=== PATIENT | female | born 1975 | race Caucasian/White ===

== ENCOUNTER → 2017-10-25 07:12 | Outpatient (CLI) | payer OTHER, SELFPAY ==
--- NOTE | 2017-10-25 07:23 | MRI_ITS ---
STUDY: MRI LUMBAR SPINE WITHOUT CONTRAST REASON FOR EXAM: Female, 42 years old. radiculopathy, chronic lbp, leg weakness, balance issues. TECHNIQUE: Standardized fat and water weighted pulse sequences were obtained in the sagittal and axial planes. COMPARISON: None FINDINGS: T12-L1: Normal endplates. Normal disc height, hydration and morphology. Normal bilateral facet joints. Normal central canal and bilateral lateral recesses. Normal bilateral intervertebral neural foramina. Normal lumbar lordosis. There is no substantial scoliosis. Normal conus medullaris that terminates at the L1 L1-2: Normal endplates. Normal disc height, hydration and morphology. Normal bilateral facet joints. Normal central canal and bilateral lateral recesses. Normal bilateral intervertebral neural foramina. L2-3: Normal endplates. Normal disc height, hydration and morphology. Normal bilateral facet joints. Normal central canal and bilateral lateral recesses. Normal bilateral intervertebral neural foramina. L3-4: Normal endplates. Normal disc height, hydration and morphology. Normal bilateral facet joints. Normal central canal and bilateral lateral recesses. Normal bilateral intervertebral neural foramina. L4-5: There is minimal disc space narrowing and endplate spondylosis. There is moderate facet arthropathy with grade 1 anterolisthesis and mild disc uncovering. There is mild central canal and mild bilateral foraminal stenosis. L5-S1: Normal endplates. Normal disc height, hydration and morphology. Normal central canal and bilateral lateral recesses. Normal bilateral intervertebral neural foramina. There is minimal bilateral facet arthropathy Normal visualized sacral ala. Normal visualized paraspinous soft tissue structures. MRI/Spine Lumbar (Routine) IMPRESSION: L4/L5: Grade 1 degenerative anterolisthesis. Electronically Signed: Choco Mcqueen MD at 15:40 EDT Tel , Service support ,
== END ==
PROVIDERS: Visit Provider Psychiatry & Neurology Neurology
DX: M54.16 Radiculopathy, lumbar region (principal)
CPT/HCPCS: 72148

== ENCOUNTER → 2018-01-31 07:49 | Outpatient (CLI) | payer OTHER, SELFPAY ==
--- NOTE | 2018-01-31 10:48 | NEURO ---
NCS and/or EMG Patient Report Ordering Doctor: Nery Borges DATE OF SERVICE: 01/31/18 This is a bilateral lower extremity nerve conduction study and a left lower extremity EMG performed on this 42-year-old female with a family history of hereditary spastic paraparesis, who also has a history of back pain and on MRI reportedly has spondylolisthesis. There is no history of diabetes. exam shows severe bilateral lower extremity spasticity with upgoing toes. Bilateral lower extremity sensory and motor nerve conduction studies are performed. The sural sensory responses are normal. The common peroneal motor distal latencies amplitudes and conduction velocities are intact and the tibial motor distal latencies amplitudes and conduction velocities are intact. The common peroneal and tibial F-wave latencies are preserved, the left tibial H reflex is mildly reduced compared to the right tibial H reflex. Left lower extremity needle electromyography was performed. Muscles evaluated included the extensor digitorum brevis, abductor halitosis, medial gastrocnemius, anterior tibialis, vastus lateralis and vastus medialis muscles. Small muscles of the foot did demonstrate fasciculations however more proximal muscles demonstrated normal insertional activity with absence of pathologic spontaneous activity, motor unit potential amplitude and recruitment pattern was otherwise normal. 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
== END ==
PROVIDERS: Referring Provider Psychiatry & Neurology Neurology; Visit Provider Psychiatry & Neurology Neurology
DX: R20.0 Anesthesia of skin (principal); G62.9 Polyneuropathy, unspecified
CPT/HCPCS: 95886; 95910

== ENCOUNTER 2023-12-15 12:32 | Observation (INO) | payer MEDICAID, SELFPAY ==
--- NOTE | 2023-11-22 11:03 | EKG12_ITS ---
Test Reason : PREOP Blood Pressure : / mmHG Vent. Rate : 081 BPM Atrial Rate : 081 BPM P-R Int : 172 ms QRS Dur : 078 ms QT Int : 360 ms P-R-T Axes : 067 082 050 degrees QTc Int : 418 ms Normal sinus rhythm Nonspecific T wave abnormality Abnormal ECG Confirmed by Kaushal Darnell ([id number]), order editor HARI REYNOSO ([id number]) on 11/23/2023 10:04:45 AM Referred By: Natanael Singh Confirmed By:Kaushal Darnell
--- NOTE | 2023-11-22 11:30 | RAD_ITS ---
EXAM: XR CHEST, 2 VIEWS CLINICAL INDICATION: PREOP TECHNIQUE: Frontal and lateral views of the chest. COMPARISON: No relevant prior studies available. FINDINGS: LUNGS AND PLEURAL SPACES: No significant abnormality. No consolidation or edema. No pneumothorax. No effusion. HEART: No significant abnormality. Cardiac silhouette not enlarged. MEDIASTINUM: Central airways and mediastinal contour are unremarkable. BONES/JOINTS: No significant abnormality. No acute fracture. SOFT TISSUES: No significant abnormality. Status post cholecystectomy. RAD/Chest PA and Lateral IMPRESSION: No radiographic evidence of acute cardiopulmonary disease. Electronically Signed: Luisito Ruelas DO at 20:38 EDT ,
[2023-11-22 12:26] LABS: Absolute Lymphocyte Count 1.81 X10^3/uL (0.83-4.51); Absolute Neutrophil Count 3.4 X10^3/uL (2.0-7.7); Basophil# 0.07 X10^3/uL; Basophil% 1.2 % (0-1); Eosinophil# 0.07 X10^3/uL; Eosinophils% 1.2 % (0-5); Hematocrit 41.7 % (37-47); Hemoglobin 13.8 g/dL (12.0-15.0); Lymphocyte # 1.81 X10^3/ul (0.83-4.51); Lymphocyte % 31.3 % (19-41); Mean Corp Hgb Conc 33.1 g/dL (32-36); Mean Corpuscular Hgb 29.1 pg (27.0-32.0); Mean Platelet Vol. 10.8 fl (6.2-12.0); Monocyte# 0.43 X10^3/uL; Monocyte% 7.4 % (0-10); NRBC Flagged by Analyzer 0 % (0-5); Neutrophil # 3.38 X10^3/uL (2.7-7.7); Neutrophil % 58.6 % (47-70); Platelet Count 217 K/mm3 (150-450); RBC Distribution Width CV 12.2 % (11.6-14.6); RBC Distribution Width SD 39.5 fl (35.1-43.9); Red Blood Count 4.74 M/mm3 (4.2-5.4); White Blood Count 5.8 K/mm3 (4.4-11.0)
[2023-11-22 12:29] LABS: International Normalized Ratio 1.1; Prothrombin Time (Protime)PT. 13.9 SECONDS (11.7-14.9)
[2023-11-22 12:30] LABS: Partial Thromboplast Time 30.8 Seconds (24.1-36.2)
[2023-11-22 12:33] LABS: Magnesium 2.3 mg/dL (1.6-2.6)
[2023-11-22 12:52] LABS: Anion Gap 7 (5-15); BUN 10 mg/dL (7-18); BUN/Creat Ratio 13.3 RATIO (10-20); Calcium,Total 9.7 mg/dL (8.5-10.1); Chloride 108 mmol/L (98-107); Creatinine, Serum 0.75 mg/dL (0.55-1.02); EST Glomerular Filtration Rate 87 mL/min (>60); Est Glom Filt Rate - Afr Amer 106 mL/min (>60); Glucose 94 mg/dL (74-106); Potassium 3.5 mmol/L (3.5-5.1); Sodium Level 142 mmol/L (136-145)
[2023-12-15] VITALS (19 sets, daily range): BP systolic 102–127; BP diastolic 60–108; PULSE 66–98; RESP 14–16; TEMP 35.9–36.6; O2SAT 98–100; BMI 23.3
[2023-12-15] MEDS: Lactated Ringers 1,000 ML 999 ML IV (10:51)
[2023-12-15] MEDS: Lactated Ringers 1,000 ML 75 ML IV (10:51)
[2023-12-15] MEDS: Magnesium 1 GM over 15 mins IV (10:52)
[2023-12-15] MEDS: Acetaminophen 500 MG Tablet 1000 MG PO ×2 (10:52→20:59)
[2023-12-15 11:21] LABS: Bedside Glucose 81 mg/dL (74-106)
--- NOTE | 2023-12-15 11:24 | PRE.ANES_ITS ---
ASA Classification* ASA Classification ASA Classification: 2 Assessment & Plan Anesthesia* Anesthesia Assessment Anesthesia Assessment: Discussed sedation and/or anesthesia options, risks, benefits, and alternatives with patient/parents/legal guardian/POA. Questions invited. The patient/parents/legal guardian/POA seems to understand and agrees to proceed with anesthesia plan. Reviewed the physical assessment, medical history, allergy history and patient home medications list prior to surgery/procedure/anesthetic and documented any changes. Performed airway and anesthesia risk assessments. Anesthesia Type Anesthesia Type: General History Source History Obtained from:: Patient and Chart Anesthesia Focused Assessment* Temperature: 97.4 F Pulse Rate: 80 Blood Pressure: 123/90 Respiratory Rate: 16 Pulse Ox: 100 Oxygen Delivery Method: Room Air Airway Assessment Mouth opens: >3 cm Mallampati Score: III Teeth Condition: Intact Neck Range of motion (ROM): Full ROM Pertinent Findings EKG Pertinent Findings:: November 22, 2023. Normal sinus rhythm 81 bpm. Nonspecific T changes. Focused Labs Anesthesia Preop lab: CBC WBC 5.8 K/mm3 (4.4-11.0) 11/22/23 11:32 RBC 4.74 M/mm3 (4.2-5.4) 11/22/23 11:32 Hgb 13.8 g/dL (12.0-15.0) 11/22/23 11:32 Hct 41.7 % (37-47) 11/22/23 11:32 Plt Count 217 K/mm3 (150-450) 11/22/23 11:32 CHEMISTRY Potassium 3.5 mmol/L (3.5-5.1) 11/22/23 11:32 Sodium 142 mmol/L (136-145) 11/22/23 11:32 Magnesium 2.3 mg/dL (1.6-2.6) 11/22/23 11:32 BUN 10 mg/dL (7-18) 11/22/23 11:32 Creatinine 0.75 mg/dL (0.55-1.02) 11/22/23 11:32 Glucose 94 mg/dL (74-106) 11/22/23 11:32 POC Glucose 81 mg/dL (74-106) 12/15/23 10:54 COAG PT 13.9 SECONDS (11.7-14.9) 11/22/23 11:32 Pre-Assessment Diagnosis/Proposed Procedure Planned Operative Procedure(s): L4-L5 POSTERIOR LUMBAR FUSION AND DECOMPRESSION POSTERIOR SPINAL FUSION WITH ALLOGRAFT Anesthesia History Anesthesia History - research/program director: Anesthesia History - research/program director Hx Hospitalization No 11/21/23 08:22 Any Problems With Anesthesia No 11/21/23 08:22 Cholinesterase deficiency No 11/21/23 08:22 You/Your Family Experience No 11/21/23 08:22 fever (hyperthermia) with Relationship Recent Exposure to Contagious Disease Does patient have nerve No 11/21/23 08:22 stimulator Patient instructed to have device shut off --Does patient have Pacemaker No 12/15/23 10:29 or ICD? When Was Last Pacemaker Check QUESTION #4 FULL TEXT: You/Your Family Experience fever (hyperthermia) with Anesthesia Last Oral Intake Last Oral intake: Last Oral Intake NPO since 08:00 12/15/23 10:29 Meds taken in AM with sips of Yes 12/15/23 10:29 water? Meds patient instructed to baclofen 12/15/23 10:29 take am of surgery Any additional information?: Yes NPO since: 08:00 (Patient had Ensure.) Meds taken in AM with sips of water?: Yes PONV PONV - research/program director: PONV - research/program director Female Yes 11/21/23 08:22 HX of Motion Sickness No 11/21/23 08:22 HX of N/V After Surgery No 11/21/23 08:22 Non-Smoker No 11/21/23 08:22 Duration of Surgery greater Yes 11/21/23 08:22 than 60 minutes Number of Risk Factors 2 11/21/23 08:22 PONV Score Moderate Risk 11/21/23 08:22 Height & Weight Height & Weight: Anesthesia: Height & Weight Height 5 ft 1 in 12/15/23 10:29 Weight: 56 kg 12/15/23 10:29 Body Mass Index (BMI) 23.3 12/15/23 10:29 Respiratory Assessment Respiratory Assessment - research/program director: Respiratory Tract Infection Hx - research/program director Hx Respiratory Tract Infection No 11/21/23 08:22 STOP Sleep Apnea STOP Sleep Apnea - research/program director: STOP Sleep Apnea - research/program director Hx Hypertension Yes: LAST MEDICATED 11/202211/21/23 08:22 Hx Sleep Apnea No 11/21/23 08:22 CPAP BIPAP Do you snore loudly (louder No 11/21/23 08:22 than talking or can be heard Do you often feel tired/ No 11/21/23 08:22 fatigued/ sleepy during daytime? Has anyone observed you stop No 11/21/23 08:22 breathing during sleep? STOP Results Negative 11/21/23 08:22 QUESTION #5 FULL TEXT : Do you snore loudly (louder than talking or can be h eard through closed doors)? Tobacco Use History Tobacco Use History - research/program director: Tobacco Use History - research/program director Tobacco Use Smoking Status Current every day smoker 11/21/23 08:22 Hx Tobacco Use Yes 11/21/23 08:22 Years Smoking Packs Smoked per Day Smoking Cessation Date was within the last 15 years Hx Smoking Cessation Date Hx Smoking Cessation Counseling Any additional information?: Yes Smoking Status: Current every day smoker (Patient did not smoke today.) Hematologic Medial History Hematologic Hx - research/program director: Hematologic Medical Hx - locate technician Hx of Blood Transfusion No 11/21/23 08:22 Hx of Transfusion in last 3 No 11/21/23 08:22 Months Date of Last Transfusion (if within last 3 months) Ever experience any problems No 11/21/23 08:22 with transfusion(s)? Specify any problems Hx of Preganancy in last 3 No 11/21/23 08:22 Months Nurse Filling Out Transfusion DSCHRIBER 11/21/23 08:22 & Questions: Date: 11/21/23 11/21/23 08:22 Time: 08:11/21/23 08:22 Patient unable to answer at this time (ie. confused, unrespo /Reproduction History /Reproductive History - research/program director: /Reproductive Hx- research/program director Hx Now No 11/21/23 08:22 Gestational Age (in weeks): EDC: Hx Hx Para Hx Section SAB No 11/21/23 08:22 Active Medications Active Medications: Current Medications Generic Name Dose Route Start Last Admin Trade Name Freq PRN Reason Stop Dose Admin Acetaminophen 1,000 mg 12/15/23 12:30 12/15/23 10:52 Acetaminophen 500 Mg Tablet PO 12/15/23 12:31 1,000 mg X1 ONE Administration Lactated Ringer's 1,000 mls @ 999 mls/hr 12/15/23 12:30 12/15/23 10:51 IV 12/15/23 13:30 999 mls/hr .Q1H1M NOHELIA Administration Cefazolin Sodium 2 gm/ Sodium 110 mls @ 150 mls/hr 12/15/23 12:30 Chloride IV 12/15/23 13:13 PREOP ONE Lactated Ringer's 1,000 mls @ 125 mls/hr 12/15/23 13:30 IV 12/15/23 21:29 .Q8H NOHELIA Magnesium Sulfate 1 gm/ 102 mls @ 408 mls/hr 12/15/23 12:30 12/15/23 10:52 Dextrose IV 12/15/23 12:44 408 mls/hr X1 ONE Administration Lactated Ringer's 1,000 mls @ 75 mls/hr 12/15/23 10:15 12/15/23 10:51 IV 75 mls/hr .[id number] NOHELIA Administration Insulin Human Lispro 1 - 6 unit 12/15/23 12:30 Insulin Lispro 100 Unit/Ml Insuln.Pen SC 12/15/23 18:30 Q4H PRN PRN BG>/= 180, SEE PROTOCOL Protocol PFSH Medical History Alcohol use Ambulates with cane Restless legs Back pain Hoarseness Smoker Hereditary spastic paraparesis Shortness of breath on exertion History of pain when walking Hypertension Spinal stenosis Home Medications ?Medication ?Instructions ?Recorded ?Last Taken ?Type baclofen 20 mg tablet 20 mg PO TID 11/21/23 12/15/23 History cholecalciferol (vitamin D3) 50 50 mcg PO DAILY 11/21/23 Unknown History mcg (2,000 unit) capsule (Vitamin D3) Allergy/AdvReac Type Severity Reaction Status Date / Time No Known Allergies Allergy Verified 12/15/23 10:29 Surgical History Hx of hysterectomy Hx of tubal ligation Hx laparoscopic cholecystectomy Social History Smoking Status: Current every day smoker tobacco type: cigarettes alcohol intake: never Review of Systems (Anesthesia) ROS Narrative System reviewed and no additional complaints, except as documented.
--- NOTE | 2023-12-15 12:20 | PCM.OPRPT ---
Report of Operation Date of Procedure: 12/15/23 Description of Surgical Findings:: Preop diagnosis: 1. Lumbar stenosis, L4-5 with spondylosis 2. Lumbar degenerative disc disease L4-5 3. L4-5 spondylolisthesis Postop diagnosis: 1. Lumbar stenosis, L4-5 with spondylosis 2. Lumbar degenerative disc disease L4-5 3. L4-5 spondylolisthesis Procedures performed: 1. L4-5 posterior lumbar interbody fusion 2. Insertion of intervertebral biomechanical device x1 3. Structural allograft for spinal fusion 4. L4 bilateral laminectomies 5. L4-5 bilateral foraminotomies, facetectomies, decompression of bilateral nerve roots 6. L4-5 posterolateral fusion 7. Pedicle screw fixation 8. Local autograft for spinal fusion 9. Neuro monitoring bilateral upper and bilateral lower extremities Statement of medical necessity: The patient is a 48-year-old female with intractable back and leg pain. Image studies confirm the above diagnoses. They have failed conservative treatments to include medications physical therapy and injections and have opted for operative intervention understanding the risk to include but not limited to infection, bleeding, damage to nerves arteries and veins, possibility of spinal fluid leak, nonunion, hardware failure, continued pain, need for further surgery, deep vein thrombosis, pulmonary embolism, heart attack, risk of stroke or . Description of the procedure: The patient was identified in the preoperative holding area. There they received preoperative IV antibiotics and was then transferred to the operative suite. Once in the operative suite after general endotracheal anesthesia was established, the patient was positioned prone on the Jason operating table. All bony prominences were padded accordingly. The lumbar spine was prepped and draped in a standard fashion. Bear hugger's were not turned on until the drapes were placed and sealed with Ioban. A midline incision was made and taken down to the fascia. The fascia was divided and subperiosteal dissection was taken down to the level of the transverse processes of L4 and L5 bilaterally. Deep retractors were placed. A bone scalpel was used to make cuts in the lamina and then a series of rongeurs and Kerrisons were used removing the spinous process and lamina of L4. Then facetectomies of greater than 50% were performed at L4-5 bilaterally as well as foraminotomies decompressing the bilateral nerve roots. Given the severity of the stenosis I needed to perform wide bilateral laminectomies and near complete facetectomies in order to decompress the neural elements. Disc created instability necessitating the fusion. I then proceeded with interbody fusion. The nerve roots and dura were identified and retracted medially. A knife was utilized to perform an annulotomy at L4-5. Endplate elevators, curettes, and pituitaries were utilized to remove disc material. Endplates were prepared with a rasp. An appropriate sized intervertebral peek cage device measuring 8 mm was packed with structural allograft and impacted into position completing the posterior lumbar interbody fusion at the L4-5 level. I then proceeded with pedicle screw fixation. Starting points were found at the junction of the superior articular process and transverse processes of L4 and L5 bilaterally. A power bur was used for the starting points. Pedicle probes were placed bilaterally and then 6.5 x 50 mm screws were placed bilaterally at L4 and L5. The screws were tested with intraoperative neurophysiologic monitoring and tested within normal limits. Connector rods were applied and secured with set screws. I then proceeded with the posterolateral fusion. This was accomplished by decorticating the transverse processes bilaterally at L4 and L5. This decorticated bone was then bridged with local autograft from the decompression as well as morselized cancellous allograft completing the posterolateral fusion of the L4-5 level. The incision was thoroughly irrigated. Tisseel was placed over the dura as a hemostatic agent. The fascia was closed with #1 Vicryl, subcutaneous with 2-0 Vicryl and skin with 2-0 nylon. A sterile dressing was applied with 4 x 4's ABD and tape. Sponge instrument and needle counts were correct at the end of the case. Neurophysiologic monitoring was maintained at baseline throughout the duration of the case. The patient was extubated and taken to the PACU without incident Surgeon: Natanael Singh Type of Anesthesia: General Estimated Blood Loss (mL): 200 cc Fluids Replaced: 1800 cc Grafts/Implants Used: Unified spine Complications None Admit VTE Documentation VTE Present on Admission: No
[2023-12-15] MEDS: Heparin 10,000 UNITS/10 ML Vial 10000 UNITS (12:24)
--- NOTE | 2023-12-15 12:24 | PCM.PN.ORT ---
Subjective Subjective Seen and examined postop. Resting comfortably. Pain controlled. No complaints Objective Data Objective Data Vital Signs: Vital Signs Temp Pulse Resp BP Pulse Ox O2 Del Method 97.4 F L 80 16 123/90 H 100 Room Air 12/15/23 11:27 12/15/23 11:27 12/15/23 11:27 12/15/23 11:27 12/15/23 11:27 12/15/23 11:32 Oxygen Delivery Method Room Air Weight: 123 lb 7.342 oz Body Mass Index (BMI) 23.3 Lab / Micro Data 11/22/23 11:32 11/22/23 11:32 Labs: Laboratory Results - last 24 hr 12/15/23 10:54: POC Glucose 81 Physical Exam Const alert, oriented x3 and no apparent distress General Appearance: cooperative, comfortable and well kempt HEENT normocephalic and head/scalp atraumatic Eyes EOMs intact bilaterally and conjunctivae normal Neck full ROM General: normal visual inspection Chest inspection of chest normal and palpation of chest normal Resp normal respiratory effort and normal air movement Cardio regular rate, regular rhythm and peripheral pulses 2+ throughout GI soft to palpation, non-tender and non-distended Back/Spine Back/Spine Narrative: Dressing clean dry and intact Cervical Spine: cervical ROM normal Thoracic Spine / Upper Back: normal to inspection Lumbar Spine / Lower Back: normal to inspection Extremity normal to inspection, full ROM, normal capillary refill, no clubbing, cyanosis or edema and no calf tenderness Skin no rashes or lesions noted General Skin Exam: no breakdown Neuro oriented x3, CN's II-XII intact bilaterally, moves all extremities, no focal motor deficits, no sensory deficits noted and deep tendon reflexes 2+ bilaterally Motor Exam: strength 5/5 throughout and muscle tone normal throughout Assessment & Plan Assessment/Plan (1) Lumbar stenosis: PLAN: Okay to admit See orders Discharge planning, likely home tomorrow
--- NOTE | 2023-12-15 12:25 | PCM.DC.SUM ---
Providers Date of Admission: 12/15/23 Primary Care Physician: Dr. Renate Medina DO Reason For Visit: LUMBAR 4 - LUMBAR 5 POSTERIOR LUMBA Diagnosis Discharge Diagnosis (1) Lumbar stenosis: Status: Acute Code(s): M48.061 - Spinal stenosis, lumbar region without neurogenic claudication Plan: Okay to admit See orders Discharge planning, likely home tomorrow Medications at Discharge Home Medications baclofen 20 mg tablet 20 mg PO TID 11/21/23 cholecalciferol (vitamin D3) 50 mcg (2,000 unit) capsule (Vitamin D3) 50 mcg PO DAILY 11/21/23 hydrocodone-acetaminophen 5-325mg 5mg-325mg 1 tab PO Q6H 7 days #28 tabs 12/15/23 Hospital Course Operations - (L4-5 posterior lumbar interbody fusion, decompression, posterior spinal fusion with instrumentation, use of allograft) Summary of Care Provided Minutes Spent on Discharge: 15 Hospital Course: The patient is a 48-year-old female who underwent L4-5 fusion on 12/15/2023. She was subsequently admitted. The hospitalist was consulted for medical management. The patient progressed well. Her pain was controlled and she was mobilizing well. No significant medical issues were reported. She was subsequently discharged home on 12/16/2023 to follow-up with Dr. Singh in 3 weeks Physical Exam Const alert, oriented x3 and no apparent distress General Appearance: cooperative, comfortable and well kempt Neck full ROM General: normal visual inspection Resp normal respiratory effort and normal air movement Effort and Inspection: able to speak in complete sentences Cardio regular rate and peripheral pulses 2+ throughout GI soft to palpation, non-tender and non-distended Back/Spine Back/Spine Narrative: Dressing clean dry and intact. Incision well-approximated with interrupted sutures in place Cervical Spine: cervical ROM normal Thoracic Spine / Upper Back: normal to inspection Lumbar Spine / Lower Back: normal to inspection Extremity normal to inspection, full ROM, normal capillary refill, no clubbing, cyanosis or edema and no calf tenderness Skin no rashes or lesions noted General Skin Exam: no breakdown Neuro oriented x3, CN's II-XII intact bilaterally, moves all extremities, no focal motor deficits, no sensory deficits noted and deep tendon reflexes 2+ bilaterally Motor Exam: strength 5/5 throughout and muscle tone normal throughout Weight / BMI Weight Weight: 123 lb 7.342 oz Body Mass Index (BMI) 23.3 ABG / Lab / Microbiology Data 11/22/23 11:32 11/22/23 11:32 Laboratory: Laboratory Results - last 24 hr 12/15/23 10:54: POC Glucose 81 D/C Instructions Discharge Diet: No restrictions Additional Activity Instructions: Wear back brace at all times. No bending twisting or lifting more than 5 pounds Call your doctor if your incision/area has: Continuous Slow Oozing, Sudden Increased Bleeding, Increased Pain/ Swelling, Increased Redness, Foul Smelling Discharge and Swelling at the incision site Call your doctor if you observe: Fever of 101 or Higher, Coldness, Increased Pain, Numbness or Tingling, Change in Color, Inability to urinate, Inability to have a bowel movement, Using more than 1 pad per hour, Shortness of breath, Dizziness, Fainting spells, Swelling in the ankles, Chest pain, Prolonged hiccupping, Increased palpitations (irregular heartbeat), Calf discomfort and Uncontrolled pain Additional Dressing/Incision Instructions: Change dressing daily with gauze and tape Additional Instructions: 1. During your procedure, you received sedation through your IV. Please follow these instructions for the next 24 hours: Do not drive a motor vehicle, do not drink any alcoholic beverages, and do not sign any legal documents or make personal or business decisions. A responsible adult should stay with you at least 6 hours after the procedure. 2. Keep your surgical site/incision clean and the dressing dry and intact. You may use an ice pack at the surgical site to reduce any swelling or discomfort. 3. Monitor the incision site for any signs or symptoms of infection. Watch for redness, excessive swelling or drainage, or continued pain at the incision site after 3 days. Contact your physician immediately for a fever, chills or a temperature of 101.5? F or greater. 4. Take your medication exactly as prescribed by your physician. Do not attempt to wean yourself off any of your medications even though your pain is improving. This process needs to be carefully monitored by your doctor. Take any antibiotics prescribed exactly as directed and until they are gone. 5. Avoid stretching, bending, pulling, twisting or any sudden movements. Do not bend or twist at the waist. Wear back brace at all times 6. No lifting greater than 5 pounds. 7. Do not operate a motor vehicle, equipment or a power tool while taking pain medication 8. Do not have any manipulation done by a chiropractor or any other physician without first consulting with the surgeon 9. Please contact our office if you are even scheduled for a CT scan or an MRI. 10. Please call us if you have any questions, problems or concerns. Please Follow Up With: Natanael Singh, DO Meaningful Use Info Meaningful Use Meaningful Use Diagnoses (Choose all that apply): None applicable Ischemic Stroke Statin Dosing Therapy Reference: STATIN DOSE THERAPY REFERENCE: * Patients > 75 years receive moderate or high dose statin therapy. * Patients 75 years or YOUNGER should receive HIGH intensity statin dose unless contraindicated. You will be required to document reason for non-treatment if statin daily dose does not meet guidelines. HIGH DOSE STATIN THERAPY DAILY Atorvastatin > than or = to 40 mg Rosuvastatin > than or = to 20 mg Amlodipine + Atorvastatin > than or = to 2.5/40 mg Ezetimibe + Simvastatin 10/80 mg Simvastatin 80mg Discharge Plan Admission Admit Date/Time: 12/15/23 12:32 Attending Provider: Natanael Singh Primary Care Provider: Renate Medina Consulting Providers: Joseph Fraser Instructions Additional Instructions / Restrictions: 1. During your procedure, you received sedation through your IV. Please follow these instructions for the next 24 hours: Do not drive a motor vehicle, do not drink any alcoholic beverages, and do not sign any legal documents or make personal or business decisions. A responsible adult should stay with you at least 6 hours after the procedure. 2. Keep your surgical site/incision clean and the dressing dry and intact. You may use an ice pack at the surgical site to reduce any swelling or discomfort. 3. Monitor the incision site for any signs or symptoms of infection. Watch for redness, excessive swelling or drainage, or continued pain at the incision site after 3 days. Contact your physician immediately for a fever, chills or a temperature of 101.5? F or greater. 4. Take your medication exactly as prescribed by your physician. Do not attempt to wean yourself off any of your medications even though your pain is improving. This process needs to be carefully monitored by your doctor. Take any antibiotics prescribed exactly as directed and until they are gone. 5. Avoid stretching, bending, pulling, twisting or any sudden movements. Do not bend or twist at the waist. Wear back brace at all times 6. No lifting greater than 5 pounds. 7. Do not operate a motor vehicle, equipment or a power tool while taking pain medication 8. Do not have any manipulation done by a chiropractor or any other physician without first consulting with the surgeon 9. Please contact our office if you are even scheduled for a CT scan or an MRI. 10. Please call us if you have any questions, problems or concerns. Discharge Orders/Prescriptions Prescriptions: New hydrocodone-acetaminophen 5-325 mg tablet 1 tab PO Q6H 7 Days Qty: 28 0RF Continued baclofen 20 mg tablet 20 mg PO TID cholecalciferol (vitamin D3) [Vitamin D3] 50 mcg (2,000 unit) capsule 50 mcg PO DAILY Referrals / Follow Up: Natanael Singh DO [Med Staff - Active Staff] - Renate Medina DO [Primary Care Provider] - Disposition Disposition (needs filled in before D/C Order can be placed): Home, Self Care
[2023-12-15] MEDS: Heparin 10,000 UNITS/10 ML Vial 30000 UNITS OPERA.SITE (12:30)
[2023-12-15] MEDS: Cefazolin 2 GM in 0.9% Normal Saline (100mL Bag) 100 ML IV (12:42)
--- NOTE | 2023-12-15 13:00 | RAD_ITS ---
INDICATION: POSTERIOR FUSION L4-5 EXAMINATION/TECHNIQUE: X-RAY - XR Spine Lumbar. 7 fluoroscopic images. 2 views. Total fluoroscopic time 153.3 seconds. Cumulative dose 46.02 mGy. COMPARISON: No relevant prior comparison study available FINDINGS: There is initial localization to the L5 level posteriorly. There is placement of posterior fusion hardware with disc spacer at L4-L5. RAD/Spine 1 View Any Level IMPRESSION: Fluoroscopic guidance for posterior fusion at L4-L5. Electronically Signed: Luis Banks MD at 9:09 EDT ,
[2023-12-15] MEDS: THROMBIN (RECOMBINANT) 20,000 UNIT VIAL 20000 UNIT TOPICAL (13:46)
[2023-12-15] MEDS: Bupivacaine 0.25% 30 ML Vial (16:01)
--- NOTE | 2023-12-15 16:26 | PCM.POST.ANE ---
Anesthesia: Postop Eval I Current Vital Signs Temperature: 97 F Pulse Rate: 88 Blood Pressure: 122/108 Respiratory Rate: 16 Pulse Ox: 100 Oxygen Delivery Method: Nasal Cannula Assessment Airway patent: Yes Spontaneous unlabored respirations: Yes Mental status: Awake and Calm nausea: No Vomiting: No Anesthesia Complication: No Fluid Hydration Crystalloid volume administer (ml): 1,800 Total IV fluid infused: 1,800 Progress Note Anesthesia document: Postop Eval 1 completed: Yes
--- NOTE | 2023-12-15 16:27 | POSTOPAN2_ITS ---
Anesthesia Postop Eval I Sum Postop Eval Completion status Anesthesia document: Postop Eval 1 completed: Yes Anesthesia Postop Eval I Summary Anesthesia Postop Eval I Summary: Anesthesia Postop Eval I: Assessment Summary Airway patent Yes 12/15/23 16:27 ORDAINED [email or web address] Spontaneous unlabored Yes 12/15/23 16:27 ORDAINED MINISTER.MDOT respirations Mental status Awake,Calm 12/15/23 16:27 ORDAINED MINISTER.MDOT nausea No 12/15/23 16:27 ORDAINED MINISTER.MDOT Vomiting No 12/15/23 16:27 ORDAINED MINISTER.MDOT Anesthesia Postop Eval I: Fluid Summary Crystalloid volume administer 1,800 12/15/23 16:27 ORDAINED MINISTER.MDOT (ml) Colloids volume administered ( ml) Blood Product volume administered (ml) Total IV fluid infused 1,800 12/15/23 16:27 ORDAINED MINISTER.MDOT Anesthesia Postop Eval I: Summary Notes Anesthesia Complication No 12/15/23 16:27 ORDAINED MINISTER.MDOT Anesthesia Complication Comment: Post-operative progress note Anesthesia: Postop Eval II Evaluation Mental status: Awake and Calm Pain Level: 0 nausea: No Vomiting: No Complications Anesthesia Complication: No
--- NOTE | 2023-12-15 16:27 | PCM.POSTANE2 ---
Anesthesia Postop Eval I Sum Postop Eval Completion status Anesthesia document: Postop Eval 1 completed: Yes Anesthesia Postop Eval I Summary Anesthesia Postop Eval I Summary: Anesthesia Postop Eval I: Assessment Summary Airway patent Yes 12/15/23 16:27 ROUGH PLANER [email or web address].[email or web address] Spontaneous unlabored Yes 12/15/23 16:27 ROUGH PLANER TENDER.MDOT respirations Mental status Awake,Calm 12/15/23 16:27 ROUGH PLANER TENDER.MDOT nausea No 12/15/23 16:27 ROUGH PLANER TENDER.MDOT Vomiting No 12/15/23 16:27 ROUGH PLANER TENDER.MDOT Anesthesia Postop Eval I: Fluid Summary Crystalloid volume administer 1,800 12/15/23 16:27 ROUGH PLANER TENDER.MDOT (ml) Colloids volume administered ( ml) Blood Product volume administered (ml) Total IV fluid infused 1,800 12/15/23 16:27 ROUGH PLANER TENDER.MDOT Anesthesia Postop Eval I: Summary Notes Anesthesia Complication No 12/15/23 16:27 ROUGH PLANER TENDER.MDOT Anesthesia Complication Comment: Post-operative progress note Anesthesia: Postop Eval II Evaluation Mental status: Awake and Calm Pain Level: 0 nausea: No Vomiting: No Complications Anesthesia Complication: No
[2023-12-15] MEDS: LACTATED RINGERS 125 ML IV (17:53)
--- NOTE | 2023-12-15 19:02 | PN.HOSP_ITS ---
Reason for Visit Reason for Visit: Diagnoses Spinal stenosis, lumbar region without neurogenic claudication (12/15/23) Encounter for other preprocedural examination (12/15/23) Subjective Subjective Brittnee Holland is a 48-year-old female with history of hereditary spastic paraparesis, hypertension, lumbar stenosis who presented [facility] 12/15/[address]23 for lumbar fusion with Dr. Singh. Hospitalist consulted for medical management. Patient sitting up with family member at bedside, reports some postop discomfort but otherwise quick negative ROS. Patient on home baclofen and vitamin D as no other medical problems or complaints. Denies alcohol or drug use, does report smoking around a pack a day up until last night with plan to quit Objective Data Objective Data Vital Signs: Vital Signs Temp Pulse Resp BP Pulse Ox O2 Del Method O2 Flow Rate 98 F 80 16 121/78 H 100 Nasal Cannula 4 12/15/23 18:39 12/15/23 18:46 12/15/23 18:39 12/15/23 18:39 12/15/23 18:39 12/15/23 18:39 12/15/23 18:39 Oxygen Flow Rate (L/min) 4 Oxygen Delivery Method Nasal Cannula Weight: 56 kg Body Mass Index (BMI) 23.3 Intake & Output: Intake and Output for Last 24 Hours 12/13/23 12/14/23 12/15/23 23:59 23:59 23:59 Intake Total 2928.25 / 2928.25 Output Total 300 / 300 Balance 2628.25 / 2628.25 Lab / Micro Data 11/22/23 11:32 11/22/23 11:32 Labs: Laboratory Results - last 24 hr 12/15/23 10:54: POC Glucose 81 Physical Exam Narrative General: Alert, oriented, no apparent distress HEENT: Atraumatic, normocephalic Eyes: Anicteric, normal conjunctiva, extraocular movements grossly intact Neck: Supple Respiratory: Clear to auscultation bilaterally, normal respiratory effort Cardiovascular: Regular rate GI: Soft, nontender, nondistended Extremities: No edema Musculoskeletal: Moving all extremities Neuro: No overt focal neurological deficits Skin: No rashes appreciated Psych: Cooperative Assessment & Plan Assessment/Plan (1) Lumbar stenosis: PLAN: Plan # History of hereditary spastic paraparesis -Continue home baclofen #Tobacco use -Patient reports she quit last night and intends to continue cessation -Does not want nicotine patch at this time # Lumbar stenosis -Status post fusion with Dr. Singh 12/15/2023 -Management per primary -Pain management per primary -PT/OT #DVT ppx: Timing per primary Elizabeth Nelson MD Time spent in the patient's overall evaluation,decision-making process, review of diagnostic data, adjustment of management, discussion with other providers, nursing nursing and ancillary staff involved in patient's care documentation, 15 minutes Charges/Coding Visit Charges Office Visits / Consults: [id number] OV L2 Est 10min
[2023-12-15] MEDS: Lactated Ringers 1,000 ML 100 ML IV (20:51)
[2023-12-15] MEDS: Cefazolin 1 GM/50 ML BAG IV (20:53)
[2023-12-15] MEDS: Baclofen 10 MG Tablet 20 MG PO (20:59)
[2023-12-16 00:59] VITALS: PULSE 57
[2023-12-16 02:24] VITALS: BP 99/72; PULSE 77; RESP 16; TEMP 36.5; O2SAT 98
[2023-12-16] MEDS: Baclofen 10 MG Tablet 20 MG PO (04:46)
[2023-12-16] MEDS: Lactated Ringers 1,000 ML 100 ML IV (04:46)
[2023-12-16] MEDS: Acetaminophen 500 MG Tablet 1000 MG PO (04:47)
[2023-12-16] MEDS: Cefazolin 1 GM/50 ML BAG IV (04:49)
[2023-12-16 06:18] VITALS: BP 108/78; PULSE 77; RESP 16; TEMP 36.5; O2SAT 99
--- NOTE | 2023-12-16 07:23 | PCM.PN.ORT ---
Subjective Subjective Seen and examined postop day 1. Lying in bed resting comfortably. Pain controlled. No complaints. She has been out of bed and walking the halls. She states the pain that was in her legs preoperatively has resolved. She denies any other acute numbness tingling or weakness Objective Data Objective Data Vital Signs: Vital Signs Temp Pulse Resp BP Pulse Ox O2 Del Method O2 Flow Rate 97.7 F L 77 16 108/78 99 Room Air 2 12/16/23 06:18 12/16/23 06:18 12/16/23 06:18 12/16/23 06:18 12/16/23 06:18 12/16/23 07:13 12/15/23 20:57 Oxygen Flow Rate (L/min) 2 Oxygen Delivery Method Room Air Weight: 123 lb 7.342 oz Body Mass Index (BMI) 23.3 Intake & Output: Intake and Output for Last 24 Hours 12/14/23 12/15/23 12/16/23 23:59 23:59 23:59 Intake Total 2978.25 / 3278.25 2422.92 / 2422.92 Output Total 300 / 800 1000 / 1000 Balance 2678.25 / 2478.25 1422.92 / 1422.92 Lab / Micro Data 11/22/23 11:32 11/22/23 11:32 Labs: Laboratory Results - last 24 hr 12/15/23 10:54: POC Glucose 81 Physical Exam Const alert, oriented x3 and no apparent distress General Appearance: cooperative, comfortable and well kempt Neck full ROM General: normal visual inspection Resp normal respiratory effort and normal air movement Effort and Inspection: able to speak in complete sentences Cardio regular rate and peripheral pulses 2+ throughout GI soft to palpation, non-tender and non-distended Back/Spine Back/Spine Narrative: Dressing clean dry and intact Cervical Spine: cervical ROM normal Thoracic Spine / Upper Back: normal to inspection Lumbar Spine / Lower Back: normal to inspection Extremity normal to inspection, full ROM, normal capillary refill, no clubbing, cyanosis or edema and no calf tenderness Neuro oriented x3, CN's II-XII intact bilaterally, moves all extremities, no focal motor deficits, no sensory deficits noted and deep tendon reflexes 2+ bilaterally Motor Exam: strength 5/5 throughout and muscle tone normal throughout Assessment & Plan Assessment/Plan (1) Lumbar stenosis: PLAN: I had a lengthy discussion with the patient. She is doing very well. We will continue with pain control and mobilization with physical therapy today and plan for discharge either today or tomorrow. She understands and agrees with the treatment plan
[2023-12-16] MEDS: oxyCODONE 5 MG Tablet PO (08:41)
[2023-12-16] MEDS: Cholecalciferol (VIT D3) 25 MCG TABLET (1,000 UNITS) 50 MCG PO (08:41)
[2023-12-16 08:48] VITALS: BP 124/72; PULSE 78; RESP 16; TEMP 36.6; O2SAT 100
[2023-12-16 09:03] VITALS: PULSE 103
--- NOTE | 2023-12-16 10:00 | CASEMGMT ---
RN CM Face to Face with patient for initial transition planning/care coordination assessment. RN CM introduced self and role at [facility]. Patient lying in bed, alert and oriented, significant other at beside. Patient willing to participate in assessment and is able to answer all questions appropriately. Care providers, pharmacy, and demographics verified. Strata: 1 PCP: Carol Specialists: Samantha, spinal ortho; Luis Carlos, neurology Preferred Pharmacy: [facility]; [facility] retail at discharge. Insurance: [facility] Prescription Benefit: yes Living Will/HPOA: none LNOK: signigicant other Living Arrangements: Patient lives with significant other in a 2 story home. Patient states she is independent and able to ambulate stairs. Transportation: self, significant other DME/HHC: Patient has cane, walker, shower chair, and grab bars at home. No previous HHC or SNF. Patient wishes to discharge home, denies need for home health at this time. Patient states she has no further needs or concerns at this time. CM to follow for discharge planning needs that may arise. Disposition Plan: Patient to discharge home with family support and follow-up plans in place. Aimee PLASENCIA, RN, CM
[2023-12-16 12:11] VITALS: BP 113/75; PULSE 81; RESP 16; TEMP 36.9; O2SAT 98
== END 2023-12-16 13:47 | disposition home or self-care (01) ==
LOC: SDC 16:41 → MS3 16:41
PROVIDERS: Anesthesiology; Admitting Provider Orthopaedic Surgery; Referring Provider Orthopaedic Surgery; Visit Provider Orthopaedic Surgery
PROC: 0SG00AJ Fusion of Lumbar Vertebral Joint with Interbody Fusion Device, Posterior Approach, Anterior Column, Open Approach (ICD-10-PCS; CPT 22630; principal; 2023-12-15 11:30)
DX: M48.061 Spinal stenosis, lumbar region without neurogenic claudication (principal); G11.4 Hereditary spastic paraplegia; M43.16 Spondylolisthesis, lumbar region; F17.210 Nicotine dependence, cigarettes, uncomplicated; M47.816 Spondylosis without myelopathy or radiculopathy, lumbar region; M51.36 Other intervertebral disc degeneration, lumbar region; I10 Essential (primary) hypertension; Z79.899 Other long term (current) drug therapy; R94.31 Abnormal electrocardiogram [ECG] [EKG]
CPT/HCPCS: 22633; 22853; 20930; 20936; 63052; 22842; 00670; 36415; 71046; 72020; 76000; 80048; 82962; 83735; 85025; 85610; 85730; 93005; 94668; 96361; 96365; 96366; 97162; 99221; 99406; C1713; J7120; G0378; J2405; J3475

== ENCOUNTER 2024-10-14 17:04 | Emergency (ER) | payer MEDICARE, SELFPAY ==
[2024-10-14 17:05] VITALS: BP 131/107; PULSE 93; RESP 18; TEMP 35.9; O2SAT 98
[2024-10-14 17:26] LABS: Absolute Lymphocyte Count 2.04 X10^3/uL (0.83-4.51); Absolute Neutrophil Count 4.9 X10^3/uL (2.0-7.7); Basophil# 0.06 X10^3/uL; Basophil% 0.8 % (0-1); Eosinophil# 0.09 X10^3/uL; Eosinophils% 1.2 % (0-5); Hematocrit 36.5 % (37-47); Hemoglobin 12.6 g/dL (12.0-15.0); Lymphocyte # 2.04 X10^3/ul (0.83-4.51); Lymphocyte % 26.4 % (19-41); Mean Corp Hgb Conc 34.5 g/dL (32-36); Mean Corpuscular Hgb 29.8 pg (27.0-32.0); Mean Corpuscular Volume 86.3 fL (81-99); Mean Platelet Vol. 10.2 fl (6.2-12.0); Monocyte# 0.66 X10^3/uL; Monocyte% 8.5 % (0-10); NRBC Flagged by Analyzer 0 % (0-5); Neutrophil # 4.87 X10^3/uL (2.7-7.7); Neutrophil % 62.8 % (47-70); Platelet Count 207 K/mm3 (150-450); RBC Distribution Width SD 38.3 fl (35.1-43.9); Red Blood Count 4.23 M/mm3 (4.2-5.4); White Blood Count 7.7 K/mm3 (4.4-11.0)
--- NOTE | 2024-10-14 17:42 | EDS_ITS ---
<Statement entered by Augie Tadeo, - 10/14/24 21:29> Patient was seen and examined with physician or assistant María Elena All components of the history and physical confirmed and agreed. 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 She states that she was swimming early this morning with her car around 12:30 PM and she noted that she developed abdominal pain and noted that this was around her bellybutton. She states that the pain ultimately was in the right lower portion of her abdomen as well. States that she went home try to have a bowel movement but notes that she could not in notes that the pain was severe therefore she came here for further evaluation management. Review of systems: Constitutional: Denies any fevers, chills, headaches Cardiovascular: Denies chest pain Respiratory: Denies shortness of breath Abdomen: Complains of abdominal pain as noted above denies nausea vomiting diarrhea : Denies any urinary symptoms Neurological: Denies any new numbness, wheeze, tingling Musculoskeletal: Denies back pain Skin: Denies any rashes or lesions Physical exam: General: Patient was lying in bed rest comfortably did not appear to be acute distress Head: Atraumatic, normocephalic Eyes: PERRL bilaterally, EOMI blood, no conjunctival injection noted Neck: Soft, supple, trachea midline Cardiovascular: Regular rate and rhythm no murmurs gallops rubs noted Respiratory: Clear to auscultation bilaterally no rales rhonchi or wheezes noted Abdomen: Soft, nondistended, no tenderness palpation Extremities: +4/5 strength noted in the bilateral upper and lower extremities, radial pulses +2/4 in the bilateral extremities Neurological: Patient following commands knew that she was at [facility] the year is 2024 Skin: Warm, dry, intact no rashes or lesions noted MDM Patient is a 49-year-old female who presents to the emergency department chief complaint of abdominal pain. On the differential diagnosis includes but not limited to appendicitis, pancreatitis, bowel obstruction, UTI. Once workup is obtained reviewed she will be reevaluated. Patient CBC reviewed showed no evidence of leukocytosis white blood count normal at 7.7, hemoglobin stable 12.6, platelet count normal at 207. Patient's urinalysis reviewed which was reviewed as a contaminated sample with 50-100 squamous epithelial cells 2+ bacteria negative leukocyte esterase negative nitrates this was sent to lab for her urine culture. Patient CT abdomen pelvis with IV contrast reviewed showed no acute abnormalities. On reevaluation the patient she is feeling better she would like to go home. She will be given prescriptions for Bentyl and Zofran. She was advised to return with worsening symptoms or concerns. She is agreeable to plan all question concerns answered she was discharged home in stable condition. Final impression: Abdominal pain History of hereditary spastic paresis Disposition: Patient will be discharged home in stable condition Supervising attending attestation: Augie MONTOYA History of Present Illness Chief Complaint: Abd Pain Narrative Narrative: 49-year-old female with past medical history of cholecystectomy, hysterectomy presents with abdominal pain. She was swimming this morning walking back to her car around 12:30 PM when she developed abdominal pain near the umbilicus and right lower quadrant. When she got home she tried to have a bowel movement but nothing came out. She had a normal large bowel movement this morning and denies melena or hematochezia. [facility] Medical History Alcohol use Ambulates with cane Restless legs Back pain Hoarseness Smoker Hereditary spastic paraparesis Shortness of breath on exertion History of pain when walking Hypertension Spinal stenosis Home Medications ?Medication ?Instructions ?Recorded ?Last Taken ?Type baclofen 20 mg tablet 20 mg PO TID 11/21/23 History cholecalciferol (vitamin D3) 50 50 mcg PO DAILY Unknown History mcg (2,000 unit) capsule (Vitamin D3) hydrocodone-acetaminophen 5-325mg 1 tab PO Q6H 7 days #28 tabs 12/15/23 Unknown Rx 5mg-325mg dicyclomine 20 mg tablet 20 mg PO BID PRN abdominal p ain 10/14/24 Unknown Rx #10 tabs ondansetron 4 mg disintegrating 4 mg PO Q8H PRN PRN Na usea #10 tabs 10/14/24 Unknown Rx tablet Allergy/AdvReac Type Severity Reaction Status Date / Time No Known Allergies Allergy Verified 10/14/24 17:05 Surgical History Hx of hysterectomy Hx of tubal ligation Hx laparoscopic cholecystectomy Social History (Updated 10/14/24 @ 17:17 by Mariselafelix Alcaraz) housing: house Smoking Status: Current every day smoker tobacco type: cigarettes alcohol intake: never EXAM Physical Exam Const Vital Signs: 10/14/24 17:05 10/14/24 19:05 Temperature 96.6 F L Temperature Source Temporal Pulse Rate 93 81 Respiratory Rate 18 18 Blood Pressure 131/107 H 105/65 Blood Pressure Mean 115 78 Pulse Ox 98 98 Oxygen Delivery Method Room Air Room Air MDM MDM Lab Data Labs: Laboratory Results - last 24 hr 10/14/24 10/14/24 17:14 19:58 WBC 7.7 RBC 4.23 Hgb 12.6 Hct 36.5 L MCV 86.3 MCH 29.8 MCHC 34.5 RDW Std Deviation 38.3 RDW Coeff of Analia 12.0 Plt Count 207 MPV 10.2 Immature Gran % (Auto) 0.300 Neut % (Auto) 62.8 Lymph % (Auto) 26.4 Perkins % (Auto) 8.5 Eos % (Auto) 1.2 Baso % (Auto) 0.8 Absolute Neuts (auto) 4.9 Absolute Lymphs (auto) 2.04 Nucleated RBC % 0 Sodium 140 Potassium 3.6 Chloride 105 Carbon Dioxide 22.3 Anion Gap 13 BUN 11 Creatinine 0.87 Est GFR (MDRD) Non-Af 82 BUN/Creatinine Ratio 12.9 Glucose 115 H Calcium 9.6 Urine Color Straw Urine Clarity Clear Urine pH 7.0 Ur Specific [place] 1.010 Urine Protein 15 H Urine Glucose (UA) Normal Urine Ketones Negative Urine Occult Blood Negative Urine Nitrite Negative Urine Bilirubin Negative Urine Urobilinogen Normal Ur Leukocyte Esterase Negative Urine RBC 0 SEEN Urine WBC 0-5 SEEN Ur Squamous Epith Cells 50-100 SEEN Urine Bacteria 2+ Urine Mucus 0 SEEN Urine Test Negative Radiography Diagnostic Testing: Clinical Impression(s) from Imaging Studies Abdomen/Pelvis CT 10/14/24 17:57 IMPRESSION: No acute abnormality Reading Location: [facility] Discharge Plan Triage Chief Complaint: Abd Pain ED Midlevel Provider: María Elena Prabhakar ED Provider: Augie Tadeo Dx/Rx/DC Orders Clinical Impression: Abdominal pain Instructions: Abdominal Pain Prescriptions: New ondansetron 4 mg tablet,disintegrating 4 mg PO Q8H PRN PRN (Reason: Nausea) Qty: 10 0RF dicyclomine 20 mg tablet 20 mg PO BID PRN (Reason: abdominal pain) Qty: 10 0RF No Action baclofen 20 mg tablet 20 mg PO TID cholecalciferol (vitamin D3) [Vitamin D3] 50 mcg (2,000 unit) capsule 50 mcg PO DAILY hydrocodone-acetaminophen 5-325 mg tablet 1 tab PO Q6H 7 Days Qty: 28 0RF Primary Care Provider: Renate Medina Referrals: Renate Medina, [Primary Care Provider] - Activity Restrictions/Additional Instructions: All of your testing today including labs, urine, and CT scan look normal. I am not sure what caused the pain. You can take Tylenol and ibuprofen as needed. I prescribed Bentyl which treats abdominal spasm and cramping you can use as needed. I also prescribed nausea medicine. Return to the ER if your symptoms worsen. Print Language: Ghanaian Disposition Disposition: Home, Self Care
[2024-10-14 17:52] LABS: Anion Gap 13 (5-15); BUN 11 mg/dL (4-19); BUN/Creat Ratio 12.9 RATIO (10-20); Calcium,Total 9.6 mg/dL (7.6-11.0); Carbon Dioxide 22.3 mmol/L (21.0-32.0); Chloride 105 mmol/L (98-108); Creatinine, Serum 0.87 mg/dL (0.70-1.20); EST Glomerular Filtration Rate 82 (>60); Glucose 115 mg/dL (70-99); Potassium 3.6 mmol/L (3.3-5.1); Sodium Level 140 mmol/L (133-145)
--- NOTE | 2024-10-14 17:57 | CT_ITS ---
PROCEDURE: ABDOMEN/PELVIS W IV CONT ONLY 10/14/2024 REASON FOR EXAM: RLQ PAIN TECHNIQUE: ABDOMEN/PELVIS W IV CONT ONLY Coronal and Sagittal reconstruction series were provided. The amount of contrast given is not specified anywhere One or more dose reduction techniques were used (e.g., Automated exposure control, adjustment of the mA and/or kV according to patient size, use of iterative reconstruction technique. FINDINGS: Normal appearance of the liver. Gallbladder surgically absent. Normal portal vein. Normal spleen. No renal calculi. No renal mass. No hydronephrosis. Normal CT appearance of the pancreas. There is no free-fluid or free air. There is no bowel obstruction. No abdominal aortic aneurysm. No retroperitoneal adenopathy. The lung bases are clear. CT/Abdomen/Pelvis W IV Cont ONLY IMPRESSION: No acute abnormality Reading [facility]
--- OUTSIDE RECORDS SUMMARY | 2024-10-14 18:20 | XMS RPT_ITS | CCD ---
Author Organization [facility] Care Team Providers Care Newspaper Manager Name Role Phone REFERRING, NADINE WO ID Unavailable Unavailable MYRON ALICEA Unavailable Unavailable Suma LANGFORD Unavailable Unavailabl tamie ALICEA DO, DR SANCHES Primary Care Physician [phone] CAROL ROBERTSON, DR SANCHES Primary Care Physician [phone] CAROL ROBERTSON, DR SANCHES Primary Care Physician [phone] Carol ROBERTSON, Myron Primary Care Provider [phone] NAVI TELLEZ Attending Unavailable CARLOS LAN Referring Unavailable MYRON ALICEA Primary Care Unavailable NAVI TELLEZ Admitting Unavailable NAVI TELLEZ Attending Unavailable NAVI TELLEZ Referring Unavailable MYRON ALICEA Primary Care Unavailable CAROL ROBERTSON, DR SANCHES Attending Unavailable CAROL ROBERTSON, DR SANCHES Primary Care Unavailable NATANAEL RAYMOND DO Attending Unavailable CAROL ROBERTSON, DR SANCHES Primary Care Unavailable BILLY CRAIG Attending Unavail able CAROL ROBERTSON, DR SANCHES Primary Care Unavailable SIMON SONG MD Attending Unavailable CAROL ROBERTSON, DR SANCHES Primary Care Unavailable SIMON SONG MD Attending Unavailable CAROL ROBERTSON, DR SANCHES Primary Care Unavailable IGNACIA MA, PRANAV W Attending Unavailable CAROL ROBERTSON, DR SANCHES Primary Care Unavailable Natanael Raymond Admitting Unavailable Natanael Raymond Referring Unavailable Myron Alicea Primary Care Unavailable Elizabeth Nelson Consulting Unavailable Elizabeth Nelson Attending Unavailable Natanael Raymond Consulting Unavailable Samantha Natanael Admitting Unavailable Natanael Raymond Attending Unavailable Natanael Raymond Referring Unavailable Myron Alicea Primary Care Unavailable Joseph Fraser Consulting Unavailable Myron Alicea Primary Care Unavailable Augie Tadeo Attending Unavailable Kaushal Darnell Attending Unavailable Natanael Raymond Referring Unavailable Myron Alicea Primary Care Unavailable Medications Current Medications Medication Drug Class(es) Dates Sig (Normalized) Sig (Original) baclofen 20 mg oral tablet (12 sources) gamma-Aminobutyric Acid-ergic Agonist Start: 07-30-2022 take 1 tablet by mouth three times daily baclofen 20 mg oral tablet TAKE 1 TABLET 3 TIMES A DAY BY ORAL ROUTE. Start Date: 07/30/22 Status: Ordered brimonidine tartrate 2 mg/ml ophthalmic solution (2 sources) alpha-Adrenergic Agonist Start: 05-24-2023 Alphagan 0.2% ophthalmic solution 0 Refill(s) Start Date: 05/24/23 Status: Ordered cephalexin 500 mg oral capsule (1 source) Cephalosporin Antibacterial Start: 09-27-2023 End: 10-04-2023 cephalexin 500 mg oral capsule Dose : 500 mg = 1 cap(s), Oral, TID, X 7 day(s), # 21 cap(s), 0 Refill(s), 10/04/23 11:08:00 AM EDT, Pharmacy: [facility]/pharmacy #[id number], 159.2, cm, 09/27/23 10:33:00 EDT, Height, 59.4, kg, 09/27/23 10:33:00 EDT, Dosing Weight Start Date: 09/27/23 Stop Date: 10/04/23 Status: Ordered Cholecalciferol (3 sources) Vitamin D Start: 09-27-2023 Vitamin D (3) 45 units oral capsule 0 Refill(s) Start Date: 09/27/23 Status: Ordered take 1 capsule by mouth once jam ly cholecalciferol (Vitamin D-3) 50 MCG (1999 UT) capsule Take 2,000 Units by mouth daily. 0 Active difluprednate 0.5 mg/ml ophthalmic suspension (3 sources) Start: 10-25-2022 difluprednate 0.05% ophthalmic emulsion Dose = 1 drop(s), Eye, right, BID, 0 Refill(s) Start Date: 10/25/22 Status: Ordered dorzolamide 20 mg/ml / timolol 5 mg/ml ophthalmic solution (3 sources) Carbonic Anhydrase Inhibitor, beta-Adrenergic Zarina Start: 12-23-2022 dorzolamide-timolol 2.23%-0.68% (2%-0.5% base) ophthalmic solution Dose = 1 drop(s), Eye, right, BID, # 5 mL, 0 Refill(s) Start Date: 12/23/22 Status: Ordered gabapentin 100 mg oral capsule (10 sources) Anti-epileptic Agent Start: 12-03-2022 gabapentin 100 mg or al capsule Dose : 100 mg = 1 cap(s), Oral, TID, # 90 cap(s), 0 Refill(s), 57.3 Start Date: 12/03/22 Status: Ordered Start: 10-17-2022 gabapentin (Ne urontin) 300 MG capsule Take 100 mg by mouth 3 times daily. 0 10/17/2022 Active Start: 10-17-2022 take 1 capsule by mo uth three times daily gabapentin (Neurontin) 300 MG capsule Take 300 mg by mouth 3 times daily. 0 10/17/2022 Active Start: 08-17-2022 gabapentin 300 mg oral capsule Dose : 300 mg = 1 cap(s), Oral, TID, # 270 cap(s), 0 Refill(s), 54.3 Start Date: 08/17/22 Status: Ordered Start: 07-30-2022 take 2 capsules by m outh three times daily gabapentin 100 mg oral capsule TAKE 2 CAPSULES BY MOUTH 3 TIMES A DAY Start Date: 07/30/22 Status: Ordered meloxicam 15 mg oral tablet (5 sources) Nonsteroidal Anti-inflammatory Drug Start: 08-17-2022 meloxicam 15 mg oral tablet Dose : 15 mg = 1 tab(s), Oral, qDay, # 30 tab(s), 0 Refill(s), Pharmacy: [facility]/pharmacy #[id number], 158, cm, 07/30/22 15:20:00 EDT, Height Start Date: 08/17/22 Status: Ordered polymyxin b 97037 unt/ml / trimethoprim 1 mg/ml ophthalmic solution (1 source) Dihydrofolate Reductase Inhibitor Antibacterial, Polymyxin-class Antibacterial Start: 07-30-2022 End: 08-06-2022 polymyxin B-trimethoprim 10,000 units-1 mg/mL ophthalmic solution Dose = 1 drop(s), Eye, right, q3h, X 7 day(s), # 10 mL, 0 Refill(s), [id number], Right eye symptoms, 158, cm, 07/30/22 15:20:00 EDT, Height Start Date: 07/30/22 Stop Date: 08/06/22 Status: Ordered Probiotic (1 source) Start: 09-27-2023 Probiotic 0 Refill(s) Start Date: 09/27/23 Status: Ordered promethazine hydrochloride 12.5 mg oral tablet (2 sources) Phenothiazine Start: 09-08-2023 promethazine 12.5 mg oral tablet Dose : 12.5 mg = 1 tab(s), Oral, q4h, PRN as needed for nausea/vomiting, # 30 tab(s), 0 Refill(s), [id number], 159.2, cm, 09/08/23 7:35:00 EDT, Height, kg, 09/08/23 7:35:00 EDT, Dosing Weight Start Date: 09/08/23 Status: Ordered {11 (varenicline 0.5 MG Oral Tablet [Chantix]) / 42 (varenicline 1 MG Oral Tablet [Chantix]) } Pack [Chantix First Month of Therapy] (1 source) Partial Cholinergic Nicotinic Agonist Start: 12-03-2022 take 1 tablet by mouth twice daily Chantix Starter Pack 0.5 mg-1 mg oral tablet Dose = 1 tab(s), Oral, BID, # 1 kit(s), 0 Refill(s), [id number], 155, cm, 10/29/22 10:01:00 EDT, Height, kg, 12/03/22 10:48:00 EDT, Dosing Weight Start Date: 12/03/22 Status: Ordered Completed/Discontinued Medications Medication Drug Class(es) Dates Sig (Normalized) Sig (Original) lisinopril 2.5 mg oral tablet (3 sources) Angiotensin Converting Enzyme Inhibitor Start: 10-29-2022 End: 01-13-2023 take 1 tablet by mouth once daily lisinopril 2.5 MG tablet Take 2.5 mg by mouth daily. 0 10/29/2022 01/13/2023 Discontinued (Therapy completed) 1000 ml sodium chloride 9 mg/ml injection (2 sources) Start: 01-13-2023 End: 01-13-2023 sodium chloride 0.9 % infusion Problems Active Problems Problem Classification Problem Date Documented Da te Episodic/Chronic Allergic reactions (2 sources) Contact dermatitis 12-24-2022 Episodic Inflammation; infection of eye (except that caused by tuberculosis or sexually transmitteddisease) (1 source) Primary iridocyclitis, right eye; Translations: [Primary iridocyclitis of right eye] Episodic Menstrual disorders (2 sources) Excessive and frequent menstruation with regular cycle; Translations: [Excessive and frequent menstruation with regular cycle] Onset: 10-25-2022 Chronic Other eye disorders (1 source) Disorder of vitreous body; Translations: [Other disorders of vitreous body] Chronic Other gastrointestinal disorders (1 source) Diarrhea 09-27-2023 Episodic Other gastrointestinal disorders (2 sources) Diarrhea, unspecified; Translations: [Diarrhea, unspecified] Onset: 09-28-2023 Episodic Other hereditary and degenerative nervous system conditions (1 source) Hereditary spastic paraplegia; 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 Other nervous system disorders (1 source) Spastic gait; Translations: [Paralytic gait] Episodic Other nervous system disorders (1 source) Abnormal gait; Translations: [Other abnormalities of gait and mobility] Episodic Other non-traumatic joint disorders (3 sources) Decreased range of hip movement 09-22-2022 Episodic Paralysis (12 sources) Spastic paralysis; 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] Onset: 01-13-2023 09-17-2015 Chronic Poisoning by other medications and drugs (2 sources) Adverse reaction to drug 12-24-2022 Episodic Substance-related disorders (3 sources) Nicotine dependence 12-03-2022 Chronic Unclassified (1 source) Unknown / UNK(Unknown) Onset: 10-26-2016 Unclassified (2 sources) New Patient; Translations: [New Patient] Onset: 11-03-2022 Past or Other Problems Problem Classification Problem Date Documented Date Episodic/Chronic Spondylosis; intervertebral disc disorders; other back problems (3 sources) Lumbar radiculopathy; Translations: [Radiculopathy, lumbar region] Onset: 12-16-2023 Episodic Unclassified (1 source) SPONYLOTHESIS LUMBAR, LBP, WALKING DIFF Onset: 10-26-2016 Results Test Name Value Interpretation Reference Range Facility Basic Metabolic Profile (BMP )on 10-14-2024 BUN/CRE 12.9 RATIO Normal 10-20 [facility] Comment on above: Performed By: #### L 100.0100, L500.2500 ####[facility] [address] [place], [address] Calcium [Mass/Vol] 9.6 mg/dL Normal 7.6-11.0 [facility] Comment on above: Performed By: #### L 100.0100, L500.2500 ####[facility] [address] [place], [address] Chloride [Moles/Vol] 105 mmol/L Normal 98-108 [facility] Comment on above: Performed By: #### L 100.0100, L500.2500 ####[facility] [address] [place], [address] CO2 [Moles/Vol] 22.3 mmol/L Normal 21.0-32.0 [facility] Comment on above: Performed By: #### L 100.0100, L500.2500 ####[facility] [address] [place], [address] Creatinine [Mass/Vol] 0.87 mg/dL Normal 0.70-1.20 [facility] Comment on above: Performed By: #### L 100.0100, L500.2500 ####[facility] [address] [place], [address] GAP 13 Normal 5-15 [facility] Comment on above: Performed By: #### L 100.0100, L500.2500 ####[facility] [address] [place], [address] GFR/1.73 sq M.predicted among non-blacks MDRD (S/P/Bld) [Vol rate/Area] 82 mL/min/{1.73_m2} Normal >60 [facility] Comment on above: Result Comment: mL/m in/1.73m2 CKD-EPI Creatinine Equation (2020) Performed By: #### L 100.0100, L500.2500 ####[facility] [address] [place], [address] Glucose [Mass/Vol] 115 mg/dL High 70-99 [facility] Comment on above: Performed By: #### L 100.0100, L500.2500 ####[facility] [address] [place], [address] Potassium [Moles/Vol] 3.6 mmol/L Normal 3.3-5.1 [facility] Comment on above: Performed By: #### L 100.0100, L500.2500 ####[facility] [address] [place], [address] Sodium [Moles/Vol] 140 mmol/L Normal 133-145 [facility] Comment on above: Performed By: #### L 100.0100, L500.2500 ####[facility] [address] [place], [address] Urea nitrogen [Mass/Vol] 11 mg/dL Normal 4-19 [facility] Comment on above: Performed By: #### L 100.0100, L500.2500 ####[facility] [address] [place], [address] CBC W/Diff, Automatedon 06-2 Absolute Lymph 2.04 X10 3/uL Normal 0.83-4.51 [facility] Comment on above: Performed By: #### L 100.0100, L500.2500 #### [facility] [address] [place], [address] Absolute Neut 4.9 X10 3/uL Normal 2.0-7.7 [facility] Comment on above: Performed By: #### L 100.0100, L500.2500 #### [facility] [address] [place], [address] Basophils/100 WBC (Bld) 0.8 % Normal 0-1 [facility] Comment on above: Performed By: #### L 100.0100, L500.2500 #### [facility] [address] [place], [address] Eosinophils/100 WBC (Bld) 1.2 % Normal 0-5 [facility] Comment on above: Performed By: #### L 100.0100, L500.2500 #### [facility] [address] [place], [address] Erythrocyte distribution width (RBC) [Ratio] 12.0 % Normal 11.6-14.6 [facility] Comment on above: Performed By: #### L 100.0100, L500.2500 #### [facility] [address] [place], [address] Hematocrit (Bld) [Volume fraction] 36.5 % Low 37-47 [facility] Comment on above: Performed By: #### L 100.0100, L500.2500 #### [facility] [address] [place], [address] Hemoglobin (Bld) [Mass/Vol] 12.6 g/dL Normal 12.0-15.0 [facility] Comment on above: Performed By: #### L 100.0100, L500.2500 #### [facility] [address] [place], [address] IG% 0.300 Normal 0.0-0.9 [facility] Comment on above: Result Comment: IG% - Immature Granulocytes (promyelocytes, myelocytes and metamyelocytes) > 1% indicates that a LEFT SHIFT is Present. Performed By: #### L 100.0100, L500.2500 #### [facility] [address] [place], [address] Lymphocytes/100 WBC (Bld) 26.4 % Normal 19-41 [facility] Comment on above: Performed By: #### L 100.0100, L500.2500 #### [facility] [address] [place], [address] MCH (RBC) [Entitic mass] 29.8 pg Normal 27.0-32.0 [facility] Comment on above: Performed By: #### L 100.0100, L500.2500 #### [facility] [address] [place], [address] MCHC (RBC) [Mass/Vol] 34.5 g/dL Normal 32-36 [facility] Comment on above: Performed By: #### L 100.0100, L500.2500 #### [facility] [address] [place], [address] MCV (RBC) [Entitic vol] 86.3 fL Normal 81-99 [facility] Comment on above: Performed By: #### L 100.0100, L500.2500 #### [facility] [address] [place], [address] Monocytes/100 WBC (Bld) 8.5 % Normal 0-10 [facility] Comment on above: Performed By: #### L 100.0100, L500.2500 #### [facility] [address] [place], [address] Neutrophils/100 WBC (Bld) 62.8 % Normal 47-70 [facility] Comment on above: Performed By: #### L 100.0100, L500.2500 #### [facility] [address] [place], [address] Nucleated RBC (Bld) [#/Vol] 0 10*3/uL Normal 0-5 [facility] Comment on above: Performed By: #### L 100.0100, L500.2500 #### [facility] [address] [place], [address] Platelet mean volume (Bld) [Entitic vol] 10.2 fL Normal 6.2-12.0 [facility] Comment on above: Performed By: #### L 100.0100, L500.2500 #### [facility] [address] [place], [address] Platelets (Bld) [#/Vol] 207 10*3/uL Normal 150-450 [facility] Comment on above: Performed By: #### L 100.0100, L500.2500 #### [facility] [address] [place], [address] RBC (Bld) [#/Vol] 4.23 10*6/uL Normal 4.2-5.4 [facility] Comment on above: Performed By: #### L 100.0100, L500.2500 #### [facility] [address] [place], [address] RDW SD 38.3 fl Normal 35.1-43.9 [facility] Comment on above: Performed By: #### L 100.0100, L500.2500 #### [facility] [address] [place], [address] WBC (Bld) [#/Vol] 7.7 10*3/uL Normal 4.4-11.0 [facility] Comment on above: Performed By: #### L 100.0100, L500.2500 #### [facility] [address] [place], [address] Bedside Glucoseon 12-15-2023 FINGERSTICK GLU 81 mg/dL Normal 74-106 [facility] Comment on above: Result Comment: LAXMI CANO OF PATIENT CARE PER NURSING PROTOCOL Performed By: #### L 501.080 ####[facility] [address] [place], [address] MR/POSTOP.ANEon 12-15-2023 MR/POSTOP.ANE [facility] Medical Records Department [address] [place] [address] Anesthesia Postop Eval I 12/15/231625 MR#: [id number] Acct: [id number] Name: HOLLANDBRITTNEE MOLINA Rep #: [id number] : 1975 48 From: Jericho De Los Santos PCP: Dr. Myron Alicea, DO Status:REG SDC Y Race: C Location: [place] [address] Anesthesia: Postop Eval I Current Vital Signs Temperature: 97 F Pulse Rate: 88 Blood Pressure: 122/108 Respiratory Rate: 16 Pulse Ox: 100 Oxygen Delivery Method: Nasal Cannula Assessment Airway patent: Yes Spontaneous unlabored respirations: Yes Mental status: Awake and Calm nausea: No Vomiting: No Anesthesia Complication: No Fluid Hydration Crystalloid volume administer (ml): 1,800 Total IV fluid infused: 1,800 Progress Note Anesthesia document: Postop Eval 1 completed: Yes 12/15/231626 Date Jericho Acosta Signature: Date CC: Signed Normal [facility] MR/[id number] 12-15-2023 [facility] Medical Records Department [address] [place] [address] Anesthesia Postop Eval II 12/15/231626 MR#: [id number] Acct: [id number] Name: BRITTNEE HOLLAND Rep #: [id number] : 1975 48 From: Jericho De Los Santos PCP: Dr. Myron Alicea, DO Status:REG SDC Y Race: C Location: [place] [address] Anesthesia Postop Eval I Sum Postop Eval Completion status Anesthesia document: Postop Eval 1 completed: Yes Anesthesia Postop Eval I Summary Anesthesia Postop Eval I Summary: Anesthesia Postop Eval I: Assessment Summary Airway patent Yes 12/15/23 16:27 SONOGRAPHY TECHNOLOGIST.MDOT Spontaneous unlabored Yes 12/15/23 16:27 SONOGRAPHY TECHNOLOGIST.MDOT respirations Mental status Awake,Calm 12/15/23 16:27 SONOGRAPHY TECHNOLOGIST.MDOT nausea No 12/15/23 16:27 SONOGRAPHY TECHNOLOGIST.MDOT Vomiting No 12/15/23 16:27 SONOGRAPHY TECHNOLOGIST.MDOT Anesthesia Postop Eval I: Fluid Summary Crystalloid volume administer 1,800 12/15/23 16:27 SONOGRAPHY TECHNOLOGIST.MDOT (ml) Colloids volume administered ( ml) Blood Product volume administered (ml) Total IV fluid infused 1,800 12/15/23 16:27 SONOGRAPHY TECHNOLOGIST.MDOT Anesthesia Postop Eval I: Summary Notes Anesthesia Complication No 12/15/23 16:27 SONOGRAPHY TECHNOLOGIST.MDOT Anesthesia Complication Comment: Post-operative progress note Anesthesia: Postop Eval II Evaluation Mental status: Awake and Calm Pain Level: 0 nausea: No Vomiting: No Complications Anesthesia Complication: No 12/15/23 1627 Date Jericho Acosta Signature: Date CC: Signed Normal [facility] Operative Reporton 4 Operative Report [facility] Medical Records Department [address] [place] [address] Operative Report 12/15/23 1220 MR#: [id number] Acct: [id number] Name: BRITTENE HOLLAND Rep #: [id number] : 1975 48 From: Natanael Raymond DO PCP: Dr. Myron Alicea, DO Status:REG [facility] Location: [place] [address] Report of Operation Date of Procedure: 12/15/23 Description of Surgical Findings:: Preop diagnosis: 1. Lumbar stenosis, L4-5 with spondylosis 2. Lumbar degenerative disc disease L4-5 3. L4-5 spondylolisthesis Postop diagnosis: 1. Lumbar stenosis, L4-5 with spondylosis 2. Lumbar degenerative disc disease L4-5 3. L4-5 spondylolisthesis Procedures performed: 1. L4-5 posterior lumbar interbody fusion 2. Insertion of intervertebral biomechanical device x1 3. Structural allograft for spinal fusion 4. L4 bilateral laminectomies 5. L4-5 bilateral foraminotomies, facetectomies, decompression of bilateral nerve roots 6. L4-5 posterolateral fusion 7. Pedicle screw fixation 8. Local autograft for spinal fusion 9. Neuro monitoring bilateral upper and bilateral lower extremities Statement of medical necessity: The patient is a 48-year-old female with intractable back and leg pain. Image studies confirm the above diagnoses. They have failed conservative treatments to include medications physical therapy and injections and have opted for operative intervention understanding the risk to include but not limited to infection, bleeding, damage to nerves arteries and veins, possibility of spinal fluid leak, nonunion, hardware failure, continued pain, need for further surgery, deep vein thrombosis, pulmonary embolism, heart attack, risk of stroke or . Description of the procedure: The patient was identified in the preoperative holding area. There they received preoperative IV antibiotics and was then transferred to the operative suite. Once in the operative suite after general endotracheal anesthesia was established, the patient was positioned prone on the Jason operating table. All bony prominences were padded accordingly. The lumbar spine was prepped and draped in a standard fashion. Bear hugger's were not turned on until the drapes were placed and sealed with Ioban. A midline incision was made and taken down to the fascia. The fascia was divided and subperiosteal dissection was taken down to the level of the transverse processes of L4 and L5 bilaterally. Deep retractors were placed. A bone scalpel was used to make cuts in the lamina and then a series of rongeurs and Kerrisons were used removing the spinous process and lamina of L4. Then facetectomies of greater than 50% were performed at L4-5 bilaterally as well as foraminotomies decompressing the bilateral nerve roots. Given the severity of the stenosis I needed to perform wide bilateral laminectomies and near complete facetectomies in order to decompress the neural elements. Disc created instability necessitating the fusion. I then proceeded with interbody fusion. The nerve roots and dura were identified and retracted medially. A knife was utilized to perform an annulotomy at L4-5. Endplate elevators, curettes, and pituitaries were utilized to remove disc material. Endplates were prepared with a rasp. An appropriate sized intervertebral peek cage device measuring 8 mm was packed with structural allograft and impacted into position completing the posterior lumbar interbody fusion at the L4-5 level. I then proceeded with pedicle screw fixation. Starting points were found at the junction of the superior articular process and transverse processes of L4 and L5 bilaterally. A power bur was used for the starting points. Pedicle probes were placed bilaterally and then 6.5 x 50 mm screws were placed bilaterally at L4 and L5. The screws were tested with intraoperative neurophysiologic monitoring and tested within normal limits. Connector rods were applied and secured with set screws. I then proceeded with the posterolateral fusion. This was accomplished by decorticating the transverse processes bilaterally at L4 and L5. This decorticated bone was then bridged with local autograft from the decompression as well as morselized cancellous allograft completing the posterolateral fusion of the L4-5 level. The incision was thoroughly irrigated. Tisseel was placed over the dura as a hemostatic agent. The fascia was closed with #1 Vicryl, subcutaneous with 2-0 Vicryl and skin with 2-0 nylon. A sterile dressing was applied with 4 x 4's ABD and tape. Sponge instrument and needle counts were correct at the end of the case. Neurophysiologic monitoring was maintained at baseline throughout the duration of the case. The patient was extubated and taken to the PACU without incident Surgeon: Natanael Raymond Type of Anesthesia: General Estimated Blood Loss (mL): 200 cc Fluids Replaced: 1800 cc Grafts/Implants Used: Unified (more content not included)... Normal [facility] Spine 1 View Any Levelon Spine 1 View Any Level [facility] Imaging Services [address] [place] [address] Spine 1 View Any Level MR#: [id number] Acct: [id number] Name: BRITTNEE HOLLAND Rep #: [id number] : 1975 F 48 From: Luis ellis MD PCP: Dr. Myron Alicea, DO Status: ADM ALAN Study: Spine 1 View Any Level Date of Exam: 12/15/23 Exam# [id number] Ordering Dr: [place] [id number] INDICATION: POSTERIOR FUSION L4-5 EXAMINATION/TECHNIQUE: X-RAY - XR Spine Lumbar. 7 fluoroscopic images. 2 views. Total fluoroscopic time 153.3 seconds. Cumulative dose 46.02 mGy. COMPARISON: No relevant prior comparison study available FINDINGS: There is initial localization to the L5 level posteriorly. There is placement of posterior fusion hardware with disc spacer at L4-L5. RAD/Spine 1 View Any Level IMPRESSION: Fluoroscopic guidance for posterior fusion at L4-L5. Electronically Signed: Luis Banks MD at 9:09 EDT Reading Location ID and State: [facility] / [place] Tel , Service support , CC: Dr. Natanael Raymond DO; Dr. Myron Alicea DO Qc Tech: Signed Normal [facility] 12 Lead EKGon 11-22-2023 12 Lead EKG [facility] Cardiovascular Services [address] [place] [address] 12 Lead EKG 11/22/23 1113 MR#: [id number] Acct: [id number] Name: BRITTNEE HOLLAND Rep #: [id number] : 1975 48 From: Kaushal Darnell MD Attending Dr: Dr. Natanael Raymond DO Status: PRE [facility] Ordering Dr: Natanael Raymond DO Date: 11/22/23 Location: [facility] Sex: F C Admitted: Test Reason : PREOP Blood Pressure : / mmHG Vent. Rate : 081 BPM Atrial Rate : 081 BPM P-R Int : 172 ms QRS Dur : 078 ms QT Int : 360 ms P-R-T Axes : 067 082 050 degrees QTc Int : 418 ms Normal sinus rhythm Nonspecific T wave abnormality Abnormal ECG Confirmed by Kaushal Darnell ([id number]), editorial intern HARI REYNOSO ([id number]) on 11/23/2023 10:04:45 AM Referred By: Natanael Raymond Confirmed By:Kaushal Darnell 11/23/23 1004 Date Kaushal Darnell MD CC: Dr. Natanael Raymond, DO; Dr. Myron Alicea, DO Signed Normal [facility] Basic Metabolic Profile (BMP )on 11-22-2023 BUN/CRE 13.3 RATIO Normal 10-20 [facility] Comment on above: Performed By: #### L 100.0100, L300.4310, L500.2500, L300.3900 #### [facility] Laboratory [address] [place], [address] CA,Total 9.7 mg/dL Normal 8.5-10.1 [facility] Comment on above: Performed By: #### L 100.0100, L300.4310, L500.2500, L300.3900 #### [facility] Laboratory [address] [place], [address] Chloride [Moles/Vol] 108 mmol/L High 98-107 [facility] Comment on above: Performed By: #### L 100.0100, L300.4310, L500.2500, L300.3900 #### [facility] Laboratory [address] [place], [address] CO2 [Moles/Vol] 27.0 mmol/L Normal 21.0-32.0 [facility] Comment on above: Performed By: #### L 100.0100, L300.4310, L500.2500, L300.3900 #### [facility] Laboratory [address] [place], [address] Creatinine [Mass/Vol] 0.75 mg/dL Normal 0.55-1.02 [facility] Comment on above: Result Comment: The validity of the calculated GFR GFRAA in patients over 70 years has not been determined. Clinical correlation is essential. Performed By: #### L 100.0100, L300.4310, L500.2500, L300.3900 #### [facility] Laboratory [address] [place], [address] EST GFR - AA 106 mL/min Normal >60 [facility] Comment on above: Result Comment: Afri can Scottish GFR Calc Performed By: #### L 100.0100, L300.4310, L500.2500, L300.3900 #### [facility] Laboratory [address] [place], [address] GAP 7 Normal 5-15 [facility] Comment on above: Performed By: #### L 100.0100, L300.4310, L500.2500, L300.3900 #### [facility] Laboratory [address] [place], [address] GFR/1.73 sq M.predicted among non-blacks MDRD (S/P/Bld) [Vol rate/Area] 87 mL/min/{1.73_m2} Normal >60 [facility] Comment on above: Result Comment: Non- GFR Calc Performed By: #### L 100.0100, L300.4310, L500.2500, L300.3900 #### [facility] Laboratory [address] [place], [address] Glucose [Mass/Vol] 94 mg/dL Normal 74-106 [facility] Comment on above: Performed By: #### L 100.0100, L300.4310, L500.2500, L300.3900 #### [facility] Laboratory [address] [place], [address] Potassium [Moles/Vol] 3.5 mmol/L Normal 3.5-5.1 [facility] Comment on above: Performed By: #### L 100.0100, L300.4310, L500.2500, L300.3900 #### [facility] Laboratory [address] [place], [address] Sodium [Moles/Vol] 142 mmol/L Normal 136-145 [facility] Comment on above: Performed By: #### L 100.0100, L300.4310, L500.2500, L300.3900 #### [facility] Laboratory [address] [place], [address] Urea nitrogen [Mass/Vol] 10 mg/dL Normal 7-18 [facility] Comment on above: Performed By: #### L 100.0100, L300.4310, L500.2500, L300.3900 #### [facility] Laboratory [address] [place], [address] CBC W/Diff, Automatedon 08-0 -2023 Absolute Lymph 1.81 X10 3/uL Normal 0.83-4.51 [facility] Comment on above: Performed By: #### L 100.0100, L300.4310, L500.2500, L300.3900 #### [facility] Laboratory [address] [place], [address] Absolute Neut 3.4 X10 3/uL Normal 2.0-7.7 [facility] Comment on above: Performed By: #### L 100.0100, L300.4310, L500.2500, L300.3900 #### [facility] Laboratory [address] [place], [address] Basophils/100 WBC (Bld) 1.2 % High 0-1 [facility] Comment on above: Performed By: #### L 100.0100, L300.4310, L500.2500, L300.3900 #### [facility] Laboratory [address] [place], [address] Eosinophils/100 WBC (Bld) 1.2 % Normal 0-5 [facility] Comment on above: Performed By: #### L 100.0100, L300.4310, L500.2500, L300.3900 #### [facility] Laboratory [address] [place], [address] Erythrocyte distribution width (RBC) [Ratio] 12.2 % Normal 11.6-14.6 [facility] Comment on above: Performed By: #### L 100.0100, L300.4310, L500.2500, L300.3900 #### [facility] Laboratory [address] [place], [address] Hematocrit (Bld) [Volume fraction] 41.7 % Normal 37-47 [facility] Comment on above: Performed By: #### L 100.0100, L300.4310, L500.2500, L300.3900 #### [facility] Laboratory [address] [place], [address] Hemoglobin (Bld) [Mass/Vol] 13.8 g/dL Normal 12.0-15.0 [facility] Comment on above: Performed By: #### L 100.0100, L300.4310, L500.2500, L300.3900 #### [facility] Laboratory [address] [place], [address] IG% 0.300 Normal 0.0-0.9 [facility] Comment on above: Result Comment: IG% - Immature Granulocytes (promyelocytes, myelocytes and metamyelocytes) > 1% indicates that a LEFT SHIFT is Present. Performed By: #### L 100.0100, L300.4310, L500.2500, L300.3900 #### [facility] Laboratory [address] [place], [address] Lymphocytes/100 WBC (Bld) 31.3 % Normal 19-41 [facility] Comment on above: Performed By: #### L 100.0100, L300.4310, L500.2500, L300.3900 #### [facility] Laboratory [address] [place], [address] MCH (RBC) [Entitic mass] 29.1 pg Normal 27.0-32.0 [facility] Comment on above: Performed By: #### L 100.0100, L300.4310, L500.2500, L300.3900 #### [facility] Laboratory [address] [place], [address] MCHC (RBC) [Mass/Vol] 33.1 g/dL Normal 32-36 [facility] Comment on above: Performed By: #### L 100.0100, L300.4310, L500.2500, L300.3900 #### [facility] Laboratory [address] [place], [address] MCV (RBC) [Entitic vol] 88.0 fL Normal 81-99 [facility] Comment on above: Performed By: #### L 100.0100, L300.4310, L500.2500, L300.3900 #### [facility] Laboratory [address] [place], [address] Monocytes/100 WBC (Bld) 7.4 % Normal 0-10 [facility] Comment on above: Performed By: #### L 100.0100, L300.4310, L500.2500, L300.3900 #### [facility] Laboratory [address] [place], [address] Neutrophils/100 WBC (Bld) 58.6 % Normal 47-70 [facility] Comment on above: Performed By: #### L 100.0100, L300.4310, L500.2500, L300.3900 #### [facility] Laboratory [address] [place], [address] Nucleated RBC (Bld) [#/Vol] 0 10*3/uL Normal 0-5 [facility] Comment on above: Performed By: #### L 100.0100, L300.4310, L500.2500, L300.3900 #### [facility] Laboratory [address] [place], [address] Platelet mean volume (Bld) [Entitic vol] 10.8 fL Normal 6.2-12.0 [facility] Comment on above: Performed By: #### L 100.0100, L300.4310, L500.2500, L300.3900 #### [facility] Laboratory [address] [place], [address] Platelets (Bld) [#/Vol] 217 10*3/uL Normal 150-450 [facility] Comment on above: Performed By: #### L 100.0100, L300.4310, L500.2500, L300.3900 #### [facility] Laboratory [address] [place], [address] RBC (Bld) [#/Vol] 4.74 10*6/uL Normal 4.2-5.4 [facility] Comment on above: Performed By: #### L 100.0100, L300.4310, L500.2500, L300.3900 #### [facility] Laboratory [address] [place], [address] RDW SD 39.5 fl Normal 35.1-43.9 [facility] Comment on above: Performed By: #### L 100.0100, L300.4310, L500.2500, L300.3900 #### [facility] Laboratory [address] [place], [address] WBC (Bld) [#/Vol] 5.8 10*3/uL Normal 4.4-11.0 [facility] Comment on above: Performed By: #### L 100.0100, L300.4310, L500.2500, L300.3900 #### [facility] Laboratory [address] [place], [address] Chest PA and Lateralon 11-21 Chest PA and Lateral [facility] Imaging Services [address] [place], [place] [address] Chest PA and Lateral MR#: [id number] Acct: [id number] Name: BRITTNEE HOLLAND Rep #: [id number] : 1975 F 48 From: Luisito flanagan DO PCP: Dr. Myron Alicea DO Status: PRE COC Study: Chest PA and Lateral Date of Exam: 11/22/23 Exam# [id number] Ordering Dr: [place] [id number] EXAM: XR CHEST, 2 VIEWS CLINICAL INDICATION: PREOP TECHNIQUE: Frontal and lateral views of the chest. COMPARISON: No relevant prior studies available. FINDINGS: LUNGS AND PLEURAL SPACES: No significant abnormality. No consolidation or edema. No pneumothorax. No effusion. HEART: No significant abnormality. Cardiac silhouette not enlarged. MEDIASTINUM: Central airways and mediastinal contour are unremarkable. BONES/JOINTS: No significant abnormality. No acute fracture. SOFT TISSUES: No significant abnormality. Status post cholecystectomy. RAD/Chest PA and Lateral IMPRESSION: No radiographic evidence of acute cardiopulmonary disease. Electronically Signed: Luisito Ruelas DO at 20:38 EDT , CC: Dr. Natanael Raymond DO; Dr. Myron Alicea DO Qc Tech: Signed Normal [facility] Magnesiumon 11-22-2023 Magnesium [Mass/Vol] 2.3 mg/dL Normal 1.6-2.6 [facility] Comment on above: Performed By: #### L 501.5200 ####[facility] [id number] [place], [place], [address] Partial Thromboplast Timeon 11-22-2023 aPTT Coag (Bld) [Time] 30.8 s Normal 24.1-36.2 [facility] Comment on above: Performed By: #### L 100.0100, L300.4310, L500.2500, L300.3900 #### [facility] Laboratory [address] [place], [address] Prothrombin Time w/INRon INR Coag (PPP) [Relative time] 1.1 {INR} Normal [facility] Comment on above: Performed By: #### L 100.0100, L300.4310, L500.2500, L300.3900 #### [facility] Laboratory [address] [place], [address] PT Coag (PPP) [Time] 13.9 s Normal 11.7-14.9 [facility] Comment on above: Performed By: #### L 100.0100, L300.4310, L500.2500, L300.3900 #### [facility] Laboratory [address] [place], [address] CDIFPCRon 09-28-2023 Clostridium difficile PCR Negative Normal Negative [facility] Comment on above: Performed By: #### C DIFPCR #### Joel [address] [address] Clostridium difficile PCR Int Normal [facility]) Comment on above: Result Comment: No t cdB gene DNA detected. Negative test results may occur from improper collection, handling or storage of specimen, technical error, or extremely low levels of target below the limit of detection of the assay. See Below Performed By: #### C DIFPCR #### Joel [address] [address] LABORATORYOrdered By: To castro on 09-28-2023 Clostridium difficile PCR Negative (09/28/23 9:50 AM) Normal Negative AO Auto Urine SS Clostridium difficile PCR Int No tcdB gene DNA detected. Negative test results may occur from improper collection, handling or storage of specimen, technical error, or extremely low levels of target below the limit of detection of the assay. Invalid Interpretation Code AO Auto Urine SS No Panel Informationon 09-27 Shiga Toxins 1 and 2 Absence of Shiga to carly 1 Absence of Shiga toxin 2 [facility] Work Phone: Comment on above: Testing performed by immunochromatography. Culture Stool Normal stool tammy present. Salmonella: Negative Shigella: Negative Campylobacter: Negative [facility] Work Phone: Comment on above: Requests for alterna tive pathogens including Yersinia, E. coli 0157, C. difficile toxin, Rotavirus, Giardia and parasites require specific requests. Fecal Leukocytes Microscopy: Fecal Leukocytes Absent From our data, approximately 50% of enteroinvasive bacterial pathogens will not be associated with stool WBC's. [facility] Work Phone: MRI SPINE LUMBAR W/O CONTRAS Ton 09-21-2023 MRI SPINE LUMBAR W/O CONTRAST ORIGINAL HISTORY: Spondylolisthesis, stenosis COMPARISON: 01 December 2021 whole TECHNIQUE: 1. Sagittal T1-weighted images. 2. Sagittal T2-weighted images with and without fat saturation. 3. Axial T1-weighted images. 4. Axial T2-weighted images. FINDINGS: There are 5 lumbar type vertebral bodies for the purpose of this dictation. There is grade 2 anterolisthesis at L4-L5. the individual vertebral bodies are intact. There is disc desiccation and disc space narrowing at L4-L5. The tip of the conus is at the L1 level. There is no abnormal signal within the visualized spinal cord. Specific findings by level: L2-L3: There is mild facet and ligamentum flavum hypertrophy. L3-L4: There is a minimal posterior disc bulge. There is mild facet and ligamentum flavum hypertrophy. L4-L5: There is a moderate posterior disc bulge/pseudo bulge. There is moderate facet hypertrophy, with synovitis right greater than left. There is moderate ligamentum flavum hypertrophy. There is mild to moderate stenosis. There is mild right neural foraminal narrowing. L5-S1: There is mild facet hypertrophy. IMPRESSION: No significant interval change. Interpreted by: Bruce Figueroa MD Preliminary Report By: Bruce Figueroa MD Electronically signed By Bruce Figueroa MD Dictated Date: 09/21/2023 3:25:55 PM Prelim Date: 09/21/2023 3:29:15 PM Sign Date: 09/21/2023 3:29:15 PM Ordering Provider: NATANAEL RAYMOND [facility] XR ABDOMEN 2 VIEWS W/ DECUB/ ERECTon 09-12-2023 XR ABDOMEN 2 VIEWS W/ DECUB/ERECT ORIGINAL EXAMINATION: TWO XRAY VIEWS OF THE ABDOMEN 09/08/2023 8:29 am COMPARISON: None. HISTORY: ORDERING SYSTEM PROVIDED HISTORY: Reason for Exam: LLQ abd pain, constipation FINDINGS: There are no radiopaque urinary calculi. Mild to moderate amount of stool is seen in the colon. The bowel gas pattern is nonobstructive. There are no dilated loops of bowel. There are no air-fluid levels. No pneumo peritoneum. IMPRESSION: Nonobstructive bowel gas pattern. Mild to moderate amount of stool in the colon. Interpreted by: Serjio Mota MD Preliminary Report By: Serjio Mota MD Electronically signed By Serjio Mota MD Dictated Date: 09/12/2023 10:02:35 AM Prelim Date: 09/12/2023 10:03:33 AM Sign Date: 09/12/2023 10:03:33 AM Ordering Provider: MYRON ALICEA [facility] Nursing Noteon 01-13-2023 Nursing Note PT worked with pt - pt unsteady / weak ambulating. PT spoke with Dr. Tellez and updated. Plan for PT to work with pt again at aprox 1330. Will monitor - pt back in bed call light in reach. Normal [facility] 36on 11-05-2022 36 Left message for patient Baclofen pump trial to be Jan 13 at 7:30am at [facility] dept. She needs to be there at 6:30am to register in. . Pt to hold all blood thinners prior to trial (needs to discuss with PCP if on any) no baclofen day of trial. 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 Normal [facility] Progress Noteon 11-03-2022 Progress Note Answers submitted by the patient for this visit: Neurological Problem Questionnaire (Submitted on 11/02/2022) Chief Complaint: Neurologic complaint altered mental status: No clumsiness: No focal sensory loss: No focal weakness: Yes loss of balance: Yes memory loss: No near-syncope: No slurred speech: No syncope: No visual change: No weakness: Yes Chronicity: chronic Onset: more than 1 year ago Onset quality: gradually Progression since onset: waxing and waning Focality: lower extremity abdominal pain: No auditory change: No aura: No back pain: Yes bladder incontinence: No bowel incontinence: No chest pain: No confusion: No diaphoresis: No dizziness: No fatigue: No fever: No headaches: No light-headedness: No nausea: No neck pain: No palpitations: No shortness of breath: No vertigo: No vomiting: No Treatments tried: medication Improvement on treatment: mild Normal [facility] Progress Note Department of Neurological Sciences Initial Consult Note 11/03/2022 CHIEF COMPLAINT: Chief Complaint Patient presents with New Patient Hereditary Spastic Paraparesis Reason for Consult: Discuss possible baclofen pump trial HISTORY OF PRESENT ILLNESS: The patient is a 47 y.o. female who presents with complaint of Hereditary spastic paraplegia. Patient presents alone for her visit. She ambulates with a cane. She states her biggest issue is her hamstrings do not want to relax. Patient range of motion of her hips significantly decreased secondary to spasticity of her lower extremity muscles. She is a still quite functional. She tried to walk with a cane and she tells me that she rarely falls. In the past patient was complaining of severe spasms in both lower extremities. Patient was started on baclofen 20 mg p.o. 3 times daily and she is doing much better. She is still have frequent spasms but not as severe as before. Patient complaining of tiredness and sleepiness with baclofen. Today patient is referred for evaluation of possible intrathecal baclofen trial. Patient denies any weakness with baclofen. Patient has a pain strong family history of familial spastic paraparesis. Her father, her father 2 uncles and in 2 cousins have a spastic paraparesis.. Patient denied any spasticity in cranial nerves or upper extremity. --She is positive for hypertension. She is currently prescribed lisinopril 2.5 mg for management. --There is family history of Alzheimer's disease and anxiety disorder. --She is a former cigarette smoker. She drinks alcohol socially. She drinks caffeine daily. Past Medical History: Past Medical History: Diagnosis Date Difficulty walking 2015 Weakness of limb 2015 Past Surgical History: History reviewed. No pertinent surgical history. Medications: Current Outpatient Medications Medication Sig Dispense Refill baclofen (Lioresal) 20 MG tablet Take 1 tablet by mouth 3 times daily. gabapentin (Neurontin) 300 MG capsule Take 300 mg by mouth 3 times daily. lisinopril 2.5 MG tablet Take 2.5 mg by mouth daily. No current facility-administered medications for this visit. Allergies: Patient has no known allergies. Social History: Social History Socioeconomic History Marital status: Spouse name: Not on file Number of children: Not on file Years of education: Not on file Highest education level: Not on file Occupational History Not on file Tobacco Use Smoking status: Former Packs/day: 1.00 Years: 30.00 Pack years: 30.00 Types: Cigarettes Smokeless tobacco: Never Vaping Use Vaping Use: Never used Substance and Sexual Activity Alcohol use: Yes Comment: Social drinker, usually if out to dinner or an event Drug use: Never Sexual activity: Yes Partners: Male control/protection: Other Comment: Had tubal in 2005, hysterectomy 10/25/22 Other Topics Concern Not on file Social History Narrative Not on file Social Determinants of Health Financial Resource Strain: Not on file Food Insecurity: Not on file Transportation Needs: Not on file Physical Activity: Not on file Stress: Not on file Social Connections: Not on file Intimate Partner Violence: Not on file Housing Stability: Not on file Family History: Family History Problem Relation Name Age of Onset Alzheimer's disease Mother Margo Calle Anxiety disorder Mother Margo Calle REVIEW OF SYSTEMS: Review of Systems Constitutional: Negative. Negative for diaphoresis, fatigue and fever. HENT: Negative. Eyes: Negative. Respiratory: Negative. Negative for shortness of breath. Cardiovascular: Negative. Negative for chest pain and palpitations. Gastrointestinal: Negative. Negative for abdominal pain, nausea and vomiting. Endocrine: Negative. Genitourinary: Negative. Musculoskeletal: Positive for back pain and myalgias. Negative for neck pain. Skin: Negative. Allergic/Immunologic: Negative. Neurological: Positive for weakness. Negative for dizziness, syncope, light-headedness and headaches. Hematological: Negative. Psychiatric/Behavioral: Negative. Negative for confusion. PHYSICAL EXAM: Vitals: BP 119/84 (BP Location: Right arm) Pulse 78 Temp 36.8 ?C (98.2 ?F) (Infrared) Ht 5' 1 (1.549 m) Wt 126 lb (57.2 kg) BMI 23.81 kg/m? Physical Exam Constitutional: Appearance: Normal appearance. HENT: Head: Normocephalic and atraumatic. Nose: Nose normal. Mouth/Throat: Mouth: Mucous membranes are moist. Pharynx: Oropharynx is clear. Eyes: General: Vision grossly intact. Gaze aligned appropriately. Extraocular Movements: Extraocular movements intact. Conjunctiva/sclera: Conjunctivae normal. Pupils: Pupils are equal, round, and reactive to light. Neck: Trachea: Trachea and phonation normal. Cardiovascular: Rate and Rhythm: Normal rate and regular rhythm. Pulses: Normal pulses. Heart sounds: Normal heart sounds. (more content not included)... Normal [facility] Final Surgical Pathology Rep [facility] 10-27-2022 Final Surgical Pathology Report . Pathology Reports Accession: Collected Date/Time: Received Date/Time: Pathologist: [id number] 10/25/2022 16:02 EDT 10/26/2022 11:37 EDT XIANG OVIEDO MD Final Surgical Pathology Report DIAGNOSIS: UTERUS, CERVIX SQUAMOUS METAPLASIA AND NABOTHIAN CYST FORMATION: - UTERUS, ENDOMETRIUM SCARRING. NO EVIDENCE OF ATYPIA OR MALIGNANCY - UTERUS, MYOMETRIUM - LEIOMYOMAS IDENTIFIED - FALLOPIAN TUBES -NO SIGNIFICANT MICROSCOPIC PATHOLOGY CLINICAL INFORMATION: EXCESSIVE BLEEDING IN THE PREMENOPAUSAL PERIOD, LEFT LOWER QUADRANT PAIN Procedure: LAPAROSCOPIC ASSISTED VAGINAL HYSTERECTOMY, BILATERAL SALPINGECTOMY Preoperative diagnosis: MENORRHAGIA, LEFT LOWER QUADRANT PAIN Postoperative diagnosis: MENORRHAGIA, LEFT LOWER QUADRANT PAIN SPECIMEN: A UTERUS WITH BILATERAL TUBES GROSS DESCRIPTION: A. Received in formalin, labeled with the patients name, Case # [id number], and uterus, cervix, bilateral fallopian tubes Weight/dimensions-250 g and measures asymmetrical 10 cm (fundus to cervix), asymmetrical 6.5 cm (cornu to cornu), asymmetrical 8 cm (anterior to posterior). Hvvivx-ucq-ramk with multiple anterior and posterior nodules Cervix/endocervix-4.5 cm in diameter and 3.5 cm in length Endometrium-remarkable for hemorrhagic areas of scarring and no grossly identified cavity Khqmpjxadt-cvt-ehsx measuring up to 2.5 cm with multiple white whorled well-circumscribed nodules ranging from 0.6 to 5.5 cm in greatest dimension. All the nodules have a consistent white world appearance with no areas of hemorrhage or necrosis identified. Right fallopian tube: 4.5 x 1 cm Left fallopian tube: 4.5 x 0.5 cm RS-6 Cassette Summary: A1-Cervix A2-Anterior endomyometrium A3-Posterior endomyometrium A4-anterior and posterior white whorled nodules A5 -right fallopian tube A6-Left fallopian tube Dictated by BHASKAR STEWART MICROSCOPIC DESCRIPTION: The microscopic examination is performed, except in the case of Gross Only. Electronically Signed by Pathology Report verified by [facility] XIANG OVIEDO Sign out Date: 10/27/2022 15:29 Performing Lab: [facility], [address] [place] [address] Pathology Dept Disclaimer If ancillary studies were utilized, the following Laboratory Developed Test (LDT) disclaimer will apply: Pathology Reports Accession: Collected Date/Time: Received Date/Time: Pathologist: [id number] 10/25/2022 16:02 EDT 10/26/2022 11:37 EDT XIANG OVIEDO MD Disclaimer Under CLIA requirements, [facility] Pathology Laboratory is qualified to perform high complexity testing. For all ancillary stains, positive and negative controls stain appropriately. Performance characteristics of immunohistochemical and chromogenic in-situ hybridization tests have been determined by [facility] Pathology Laboratory. These tests are used for clinical purposes, They should not be regarded as investigational or for research. Normal [facility]) Gel ABOon 10-25-2022 ABO/Rh Interp Positive Invalid Interpretation Code [facility]) Comment on above: Performed By: #### A JOCELIN RIVERA ####[facility] [place] [id number] Gel ABSon 10-25-2022 Antibody Screen Gel Negative Normal [facility] ([place]) Comment on above: Performed By: #### A BOG, ANSG ####[address] [place], [place] [address] PREGUon 10-25-2022 HCG ( test) Ql (U) Negative Normal [facility] ([place]) Comment on above: Performed By: #### P REGU #### Joel [address] [address] test (u) int Not detected Invalid Interpretation Code [facility] ([place]) Comment on above: Performed By: #### P REGU #### [address] [address] .Auto Diffon 10-18-2022 Basophil, Absolute 0.1 10 3/mcL Normal 0.0-0.2 [facility] ([place]) Comment on above: Performed By: #### A NSG, GFR, ABOG, CBC, CMP, ANEU, ADIFF ####Joel [address] [place], [place] [address] Basophils/100 WBC (Bld) 1.0 % Normal 0.0-2.5 [facility] ([place]) Comment on above: Performed By: #### A NSG, GFR, ABOG, CBC, CMP, ANEU, ADIFF ####[place] [address] [place], [place] [address] Eosinophil, Absolute 0.0 10 3/mcL Normal 0.0-0.4 [facility] ([place]) Comment on above: Performed By: #### A NSG, GFR, ABOG, CBC, CMP, ANEU, ADIFF ####[place] [address] [place], [place] [address] Eosinophils/100 WBC (Bld) 0.6 % Normal 0.0-7.0 [facility] ([place]) Comment on above: Performed By: #### A NSG, GFR, ABOG, CBC, CMP, ANEU, ADIFF ####Joel [address] [place], [place] [address] Lymphocyte, Absolute 2.0 10 3/mcL Normal 0.8-3.9 [facility] ([place]) Comment on above: Performed By: #### A NSG, GFR, ABOG, CBC, CMP, ANEU, ADIFF ####Joel [address] [place], [place] [address] Lymphocytes/100 WBC (Bld) 30.9 % Normal 10.0-50.0 [facility] ([place]) Comment on above: Performed By: #### A NSG, GFR, ABOG, CBC, CMP, ANEU, ADIFF ####[address] [place], [place] [address] Monocyte, Absolute 0.6 10 3/mcL Normal 0.2-1.0 [facility] ([place]) Comment on above: Performed By: #### A NSG, GFR, ABOG, CBC, CMP, ANEU, ADIFF ####Joel [address] [place], [place] [address] Monocytes/100 WBC (Bld) 8.6 % Normal 1.7-13.0 [facility] ([place]) Comment on above: Performed By: #### A NSG, GFR, ABOG, CBC, CMP, ANEU, ADIFF ####[address] [place], [place] [address] Neutrophils/100 WBC (Bld) 58.9 % Normal 37.0-80.0 [facility] ([place]) Comment on above: Performed By: #### A NSG, GFR, ABOG, CBC, CMP, ANEU, ADIFF ####[address] [place], [place] [address] .GFRon 10-18-2022 GFR 88 ml/min/1.73sqm Normal [facility] ([place]) Comment on above: Result Comment: GFR Population mean for , Non- Americans Ages 20-29 = 116 mL/min/1.73 sq.m. Ages 30-39 = 107 mL/min/1.73 sq.m. Ages 40-49 = 99 mL/min/1.73 sq.m. Ages 50-59 = 93 mL/min/1.73 sq.m. Ages 60-69 = 85 mL/min/1.73 sq.m. Ages 70+ = 75 mL/min/1.73 sq.m. Chronic Kidney Disease: Less than 60 mL/min/1.73 square meters End Stage Renal Disease: Less than 15 mL/min/1.73 square meters Performed By: #### A NSG, GFR, ABOG, CBC, CMP, ANEU, ADIFF ####Jo[address] [place], [place] [address] GFR Non- 73 ml/min/1.73sqm Normal [facility] ([place]) Comment on above: Result Comment: GFR Population mean for , Non- Americans Ages 20-29 = 116 mL/min/1.73 sq.m. Ages 30-39 = 107 mL/min/1.73 sq.m. Ages 40-49 = 99 mL/min/1.73 sq.m. Ages 50-59 = 93 mL/min/1.73 sq.m. Ages 60-69 = 85 mL/min/1.73 sq.m. Ages 70+ = 75 mL/min/1.73 sq.m. Chronic Kidney Disease: Less than 60 mL/min/1.73 square meters End Stage Renal Disease: Less than 15 mL/min/1.73 square meters Performed By: #### A NSG, GFR, ABOG, CBC, CMP, ANEU, ADIFF ####[address] [place], [place] [address] .NEUABSon 10-18-2022 Neutrophil, Absolute 3.8 10 3/mcL Normal 2.9-6.2 [facility] ([place]) Comment on above: Performed By: #### A NSG, GFR, ABOG, CBC, CMP, ANEU, ADIFF ####Jo[address] [place], [place] [address] .Urinalysis Microscopic (AO) on 10-18-2022 UA Bacteria 2+ /hpf Abnormal [facility] ([place]) Comment on above: Performed By: #### U AMICAO, UA #### Joel [address] [place], [place] [address] UA RBC None Seen Normal None Seen [facility] ([place]) Comment on above: Performed By: #### U AMICAO, UA #### [address] [address] UA Squam Epithelial 0-5 Abnormal None Seen [facility] ([place]) Comment on above: Performed By: #### U AMICAO, UA #### [address] [address] UA WBC None Seen Normal None Seen [facility] ([place]) Comment on above: Performed By: #### U AMICAO, UA #### [address] [address] CBCon 10-18-2022 Erythrocyte distribution width (RBC) [Ratio] 13.0 % Normal 11.5-14.5 [facility] ([place]) Comment on above: Order Comment: Pre-A dmission Testing Performed By: #### A NSG, GFR, ABOG, CBC, CMP, ANEU, ADIFF #### [address] [address] Hematocrit (Bld) [Volume fraction] 41.0 % Normal 37.0-47.0 [facility] ([place]) Comment on above: Order Comment: Pre-A dmission Testing Performed By: #### A NSG, GFR, ABOG, CBC, CMP, ANEU, ADIFF #### [address] [address] Hgb 14.1 G/dL Normal 12.0-16.0 [facility] ([place]) Comment on above: Order Comment: Pre-A dmission Testing Performed By: #### A NSG, GFR, ABOG, CBC, CMP, ANEU, ADIFF #### [address] [address] MCH (RBC) [Entitic mass] 30.1 pg Normal 27.0-31.2 [facility] ([place]) Comment on above: Order Comment: Pre-A dmission Testing Performed By: #### A NSG, GFR, ABOG, CBC, CMP, ANEU, ADIFF #### [place] [address]97 MCHC 34.4 G/dL Normal 33.0-37.0 [facility] ([place]) Comment on above: Order Comment: Pre-A dmission Testing Performed By: #### A NSG, GFR, ABOG, CBC, CMP, ANEU, ADIFF #### [address] [address] MCV (RBC) [Entitic vol] 87.5 fL Normal 80.0-94.0 [facility] ([place]) Comment on above: Order Comment: Pre-A dmission Testing Performed By: #### A NSG, GFR, ABOG, CBC, CMP, ANEU, ADIFF #### [address] [address] Platelet 238 10 3/mcL Normal 130-400 [facility] ([place]) Comment on above: Order Comment: Pre-A dmission Testing Performed By: #### A NSG, GFR, ABOG, CBC, CMP, ANEU, ADIFF #### [address] [address] Platelet mean volume (Bld) [Entitic vol] 8.4 fL Normal 7.4-10.4 [facility] ([place]) Comment on above: Order Comment: Pre-A dmission Testing Performed By: #### A NSG, GFR, ABOG, CBC, CMP, ANEU, ADIFF #### [address] [address] RBC 4.68 10 6/mcL Normal 4.20-5.40 [facility] ([place]) Comment on above: Order Comment: Pre-A dmission Testing Performed By: #### A NSG, GFR, ABOG, CBC, CMP, ANEU, ADIFF #### [address] [address] WBC 6.4 10 3/mcL Normal 4.6-10.8 [facility] ([place]) Comment on above: Order Comment: Pre-A dmission Testing Performed By: #### A NSG, GFR, ABOG, CBC, CMP, ANEU, ADIFF #### [place] [id number] CMPon 10-18-2022 Albumin Level 4.8 G/dL Normal 3.5-5.0 [facility] ([place]) Comment on above: Performed By: #### A NSG, GFR, ABOG, CBC, CMP, ANEU, ADIFF ####[address] [place], [place] [address] Albumin/Globulin [Mass ratio] 1.8 {ratio} Normal 1.1-2.5 [facility] ([place]) Comment on above: Performed By: #### A NSG, GFR, ABOG, CBC, CMP, ANEU, ADIFF ####[address] [place], [place] [address] ALP [Catalytic activity/Vol] 72 U/L Normal 40-135 [facility] ([place]) Comment on above: Performed By: #### A NSG, GFR, ABOG, CBC, CMP, ANEU, ADIFF ####[address] [place], [place] [address] ALT [Catalytic activity/Vol] 23 U/L Normal 14-59 [facility] ([place]) Comment on above: Performed By: #### A NSG, GFR, ABOG, CBC, CMP, ANEU, ADIFF ####Joel [address] [place], [place] [address] AST [Catalytic activity/Vol] 15 U/L Normal 10-40 [facility] ([place]) Comment on above: Performed By: #### A NSG, GFR, ABOG, CBC, CMP, ANEU, ADIFF ####[address] [place], [place] [address] Bili Total 0.5 mg/dL Normal 0.2-1.0 [facility] ([place]) Comment on above: Result Comment: Use of this assay is not recommended for patients undergoing treatment with eltrombopag due to the potential for falsely elevated results. Performed By: #### A NSG, GFR, ABOG, CBC, CMP, ANEU, ADIFF ####[address] [place], [place] [address] BUN/Creatinine Ratio 18 ratio Normal 7-27 [facility] ([place]) Comment on above: Performed By: #### A NSG, GFR, ABOG, CBC, CMP, ANEU, ADIFF ####Jo[address] [place], [place] [address] Calcium [Mass/Vol] 9.7 mg/dL Normal 8.4-10.2 [facility] ([place]) Comment on above: Performed By: #### A NSG, GFR, ABOG, CBC, CMP, ANEU, ADIFF ####[address] [place], [place] [address] Chloride [Moles/Vol] 103 mmol/L Normal 98-107 [facility] ([place]) Comment on above: Performed By: #### A NSG, GFR, ABOG, CBC, CMP, ANEU, ADIFF ####[address] [place], [place] [address] CO2 [Moles/Vol] 30 mmol/L High 22-29 [facility] ([place]) Comment on above: Performed By: #### A NSG, GFR, ABOG, CBC, CMP, ANEU, ADIFF ####[address] [place], [place] [address] Creatinine [Mass/Vol] 0.84 mg/dL Normal 0.55-1.02 [facility] ([place]) Comment on above: Performed By: #### A NSG, GFR, ABOG, CBC, CMP, ANEU, ADIFF ####[address] [place], [place] [address] Electrolyte Balance 10.0 mEq/L Normal 4.0-15.0 [facility] ([place]) Comment on above: Performed By: #### A NSG, GFR, ABOG, CBC, CMP, ANEU, ADIFF ####Joel [address] [place], [place] [address] Globulin 2.7 G/dL Normal [facility] ([place]) Comment on above: Performed By: #### A NSG, GFR, ABOG, CBC, CMP, ANEU, ADIFF ####Joel [address] [place], [place] [address] Glucose [Mass/Vol] 85 mg/dL Normal 70-105 [facility] ([place]) Comment on above: Performed By: #### A NSG, GFR, ABOG, CBC, CMP, ANEU, ADIFF ####[address] [place], [place] [address] Potassium [Moles/Vol] 4.0 mmol/L Normal 3.5-5.1 [facility] ([place]) Comment on above: Performed By: #### A NSG, GFR, ABOG, CBC, CMP, ANEU, ADIFF ####[address] [place], [place] [address] Sodium [Moles/Vol] 143 mmol/L Normal 136-145 [facility] ([place]) Comment on above: Performed By: #### A NSG, GFR, ABOG, CBC, CMP, ANEU, ADIFF ####[address] [place], [place] [address] Total Protein 7.5 G/dL Normal 6.4-8.2 [facility] ([place]) Comment on above: Performed By: #### A NSG, GFR, ABOG, CBC, CMP, ANEU, ADIFF ####[address] [place], [place] [address] Urea nitrogen [Mass/Vol] 15 mg/dL Normal 7-18 [facility] ([place]) Comment on above: Performed By: #### A NSG, GFR, ABOG, CBC, CMP, ANEU, ADIFF ####[address] [place], [place] [address] Gel ABOon 10-18-2022 ABO/Rh Interp Positive Invalid Interpretation Code [facility] ([place]) Comment on above: Order Comment: SURG NOHELIA 7/10 -AC Performed By: #### A NSG, GFR, ABOG, CBC, CMP, ANEU, ADIFF ####[address] [place], [place] [address] Gel ABSon 10-18-2022 Antibody Screen Gel Negative Normal [facility] ([place]) Comment on above: Order Comment: SURG NOHELIA 7/10 -AC Performed By: #### A NSG, GFR, ABOG, CBC, CMP, ANEU, ADIFF ####[address] [address] UAon 10-18-2022 Color (U) Yellow Normal [facility] ([place]) Comment on above: Order Comment: Pre-A dmission Testing Performed By: #### U AMICAO, UA #### Joel [address] [address] Glucose (U) [Mass/Vol] Negative Normal Negative [facility] ([place]) Comment on above: Order Comment: Pre-A dmission Testing Performed By: #### U AMICAO, UA #### Joel [address] [address] Ketones Ql (U) Negative Normal Negative [facility] ([place]) Comment on above: Order Comment: Pre-A dmission Testing Performed By: #### U AMICAO, UA #### Joel [address] [address] UA Appear Slightly Cloudy Abnormal Clear [facility] ([place] Comment on above: Order Comment: Pre-A dmission Testing Performed By: #### U AMICAO, UA #### [address] [address] UA Blood Negative Normal Negative [facility] ([place]) Comment on above: Order Comment: Pre-A dmission Testing Performed By: #### U AMICAO, UA #### Joel [address] [address] UA Leuk Est Negative Normal Negative [facility] ([place] Comment on above: Order Comment: Pre-A dmission Testing Performed By: #### U AMICAO, UA #### Joel [address] [address] UA Nitrite Negative Normal Negative [facility] ([place] Comment on above: Order Comment: Pre-A dmission Testing Performed By: #### U AMICAO, UA #### Joel [address] [address] UA pH 7.0 Normal 5.0 - 8.0 [facility] ([place] Comment on above: Order Comment: Pre-A dmission Testing Performed By: #### U AMICAO, UA #### [address] [address] UA Protein Negative Normal Negative [facility] ([place] Comment on above: Order Comment: Pre-A dmission Testing Performed By: #### U AMICAO, UA #### Joel [place] [address] [place], [place] [address] UA Spec Grav 1.015 Normal 1.015-1.025 [facility] ([place] Comment on above: Order Comment: Pre-A dmission Testing Performed By: #### U AMICAO, UA #### [place] [address] UA Specimen Type Clean Catch Normal [facility] ([place] Comment on above: Order Comment: Pre-A dmission Testing Performed By: #### U AMICAO, UA #### [place] [address] UA Urobilinogen 0.2 E.U./dL Normal 0.2-1.0 [facility] ([place]) Comment on above: Order Comment: Pre-A dmission Testing Performed By: #### U AMICAO, UA #### [place] [address] Urobilinogen (U) [Mass/Vol] Negative Normal Negative [facility] ([place] Comment on above: Order Comment: Pre-A dmission Testing Performed By: #### U AMICAO, UA #### [place] [address] LABORATORYOrdered By: Lucille Carrion on 09-14-2022 Basophil, Absolute 0.1 103/mcL Invalid Interpretation Code 0.0 - 0.2 10^3/mcL AO Workflow SS Basophils/100 WBC (Bld) 0.8 % Invalid Interpretation Code 0.0 - 2.5 % AO Workflow SS Eosinophil, Absolute 0.1 103/mcL Invalid Interpretation Code 0.0 - 0.4 10^3/mcL AO Workflow SS Eosinophils/100 WBC (Bld) 0.8 % Invalid Interpretation Code 0.0 - 7.0 % AO Workflow SS Erythrocyte distribution width (RBC) [Ratio] 13.5 % Invalid Interpretation Code 11.5 - 14.5 % AO Workflow SS Hematocrit (Bld) [Volume fraction] 41.1 % Invalid Interpretation Code 37.0 - 47.0 % AO Workflow SS Hemoglobin (Bld) [Mass/Vol] 14.3 G/dL Invalid Interpretation Code 12.0 - 16.0 G/dL AO Workflow SS HIV 1 p24 Ab Ql (S) Non-Reactive (09/14/22 2:35 PM) Invalid Interpretation Code Non-Reactive AO Rapid Testing SS HIV 1 p24 Ab Ql (S) Non-Reactive Invalid Interpretation Code AO Rapid Testing SS HIV 1+2 Ab IA Ql Non-Reactive Invalid Interpretation Code AO Rapid Testing SS HIV 1+2 Ab IA.rapid Ql (Unsp spec) Non-Reactive (09/14/22 2:35 PM) Invalid Interpretation Code Non-Reactive AO Rapid Testing SS Lymphocyte, Absolute 2.2 103/mcL Invalid Interpretation Code 0.8 - 3.9 10^3/mcL AO Workflow SS Lymphocytes/100 WBC (Bld) 27.0 % Invalid Interpretation Code 10.0 - 50.0 % AO Workflow SS MCH (RBC) [Entitic mass] 30.2 pg Invalid Interpretation Code 27.0 - 31.2 pg AO Workflow SS MCHC 34.8 G/dL Invalid Interpretation Code 33.0 - 37.0 G/dL AO Workflow SS MCV (RBC) [Entitic vol] 86.8 fL Invalid Interpretation Code 80.0 - 94.0 fL AO Workflow SS Monocyte, Absolute 0.8 103/mcL Invalid Interpretation Code 0.2 - 1.0 10^3/mcL AO Workflow SS Monocytes/100 WBC (Bld) 9.1 % Invalid Interpretation Code 1.7 - 13.0 % AO Workflow SS Neutrophil, Absolute 5.2 103/mcL Invalid Interpretation Code 2.9 - 6.2 10^3/mcL AO Workflow SS Neutrophils/100 WBC (Bld) 62.3 % Invalid Interpretation Code 37.0 - 80.0 % AO Workflow SS Platelet mean volume (Bld) [Entitic vol] 8.1 fL Invalid Interpretation Code 7.4 - 10.4 fL AO Workflow SS Platelets (Bld) [#/Vol] 225 103/mcL Invalid Interpretation Code 130 - 400 10^3/mcL AO Workflow SS RBC (Bld) [#/Vol] 4.74 106/mcL Invalid Interpretation Code 4.20 - 5.40 10^6/mcL AO Workflow SS WBC (Bld) [#/Vol] 8.3 103/mcL Invalid Interpretation Code 4.6 - 10.8 10^3/mcL AO Workflow SS LABORATORYOrdered By: Renetta Pardo on 09-14-2022 HCV Ab IA Ql Non-Reactive (09/14/22 2:35 PM) Invalid Interpretation Code Non-Reactive ADM SS HCV Ab IA Ql Nonreactive: Samples with a value < 0.80 are considered nonreactive (negative) for antibodies to HCV.A negative test result does not exclude the possibility of exposure to or infection with HCV. HCV antibodies may be undetectable in some stages of the infection and in some clinical conditions. Invalid Interpretation Code Chemistry S LABORATORYOrdered By: Genet Crockett on 09-08-2022 C. trachomatis DNA CHITRA+probe Ql (Unsp spec) Negative (09/08/22 4:19 PM) Invalid Interpretation Code Negative Auto Viro/Sero SS C. trachomatis DNA CHITRA+probe Ql (Unsp spec) C. trachomatis DNA not detected. Specimen is presumptive negative forC. trachomatis.A negative result does not preclude C. trachomatis infection becauseresults depend on adequate specimen collection, absence of inhibitors,and sufficient DNA to be detected. Invalid Interpretation Code See CT Interp N Auto Viro/Sero SS N. gonorrhoeae DNA CHITRA+probe Ql (Unsp spec) Negative (09/08/22 4:19 PM) Invalid Interpretation Code Negative Auto Viro/Sero SS N. gonorrhoeae DNA CHITRA+probe Ql (Unsp spec) N. gonorrhoeae DNA not detected. Specimen is presumptive negative forN. gonorrhoeae. A negative result does not preclude Neisseria gonorrhoeaeinfection because results depend on adequate specimen collection, absenceof inhibitors, and sufficient DNA to be detected. Invalid Interpretation Code See NG Interp N Auto Viro/Sero SS Laboratory - Specimen inform ationOrdered By: Genet Crockett on 09-08-2022 Specimen source Nom (Unsp spec) Cervix (09/08/22 4:19 PM) Invalid Interpretation Code Auto Viro/Sero SS LABORATORYOrdered By: Rachell Lieberman on 08-03-2022 Basophil, Absolute 0.1 103/mcL Invalid Interpretation Code 0.0 - 0.2 10^3/mcL AO Workflow SS Basophils/100 WBC (Bld) 1.0 % Invalid Interpretation Code 0.0 - 2.5 % AO Workflow SS Eosinophil, Absolute 0.1 103/mcL Invalid Interpretation Code 0.0 - 0.4 10^3/mcL AO Workflow SS Eosinophils/100 WBC (Bld) 0.8 % Invalid Interpretation Code 0.0 - 7.0 % AO Workflow SS Erythrocyte distribution width (RBC) [Ratio] 13.4 % Invalid Interpretation Code 11.5 - 14.5 % AO Workflow SS Hematocrit (Bld) [Volume fraction] 40.6 % Invalid Interpretation Code 37.0 - 47.0 % AO Workflow SS Hemoglobin (Bld) [Mass/Vol] 13.8 G/dL Invalid Interpretation Code 12.0 - 16.0 G/dL AO Workflow SS Lymphocyte, Absolute 2.0 103/mcL Invalid Interpretation Code 0.8 - 3.9 10^3/mcL AO Workflow SS Lymphocytes/100 WBC (Bld) 25.7 % Invalid Interpretation Code 10.0 - 50.0 % AO Workflow SS MCH (RBC) [Entitic mass] 29.7 pg Invalid Interpretation Code 27.0 - 31.2 pg AO Workflow SS MCHC 34.1 G/dL Invalid Interpretation Code 33.0 - 37.0 G/dL AO Workflow SS MCV (RBC) [Entitic vol] 87.0 fL Invalid Interpretation Code 80.0 - 94.0 fL AO Workflow SS Monocyte, Absolute 0.7 103/mcL Invalid Interpretation Code 0.2 - 1.0 10^3/mcL AO Workflow SS Monocytes/100 WBC (Bld) 8.7 % Invalid Interpretation Code 1.7 - 13.0 % AO Workflow SS Neutrophil, Absolute 5.0 103/mcL Invalid Interpretation Code 2.9 - 6.2 10^3/mcL AO Workflow SS Neutrophils/100 WBC (Bld) 63.8 % Invalid Interpretation Code 37.0 - 80.0 % AO Workflow SS Platelet mean volume (Bld) [Entitic vol] 8.6 fL Invalid Interpretation Code 7.4 - 10.4 fL AO Workflow SS Platelets (Bld) [#/Vol] 230 103/mcL Invalid Interpretation Code 130 - 400 10^3/mcL AO Workflow SS RBC (Bld) [#/Vol] 4.67 106/mcL Invalid Interpretation Code 4.20 - 5.40 10^6/mcL AO Workflow SS WBC (Bld) [#/Vol] 7.8 103/mcL Invalid Interpretation Code 4.6 - 10.8 10^3/mcL AO Workflow SS COVID PCR, SCREENING CONGREG ATE10-10-2019 CORONAVIRUS 2019,PCR NOT DETECTED Normal Not Detected [facility] Comment on above: Result Comment: This assay is designed to detect the N, ORF1ab and/or S genes of SARS-CoV-2 via nucleic acid amplification. A Negative (NOT DETECTED) result does not preclude 2019-nCoV infection since the adequacy of sample collection and/or low viral burden may result in presence of viral nucleic acids below the clinical sensitivity of this test method. Negative (NOT DETECTED) result should not be used as the sole basis for treatment or other patient management decisions. Rather negative results should be combined with clinical observations, patient history, and epidemiological information to make patient management decisions. Fact sheet for providers: https://www.fda.gov/media/600934/download Fact sheet for patients: https://www.fda.gov/media/022742/download This test has received FDA Emergency Use Authorization (EUA) and has been verified by [facility] ([facility]). This test is only authorized for the duration of time that circumstances exist to justify the authorization of the emergency use of in vitro diagnostic tests for the detection of SARS-CoV-2 virus and/or diagnosis of COVID-19 infection under section 564(b)(1) of the Act, 21 U.S.C. 360bbb-3(b)(1), unless the authorization is terminated or revoked sooner. [facility] ([facility]) is certified under CLIA-88 as qualified to perform high complexity testing. This tests analytical performance characteristics have been determined by [facility]. Testing is performed at [facility] is located at [facility] [place] [address] (CLIA License #[id number], CAP #[id number]). Performed By: #### C VCLA #### [facility] [address] [place] [address] COVID PCR, SCREENING CONGREG ATEon 10-09-2019 Lab Specimen Source Nasal, Nasopharyngeal Normal [facility] Comment on above: Performed By: #### C VCLA #### [facility] [place] [address] Vital Signs Date Time Vital Sign Value Performing Clinician Faci [facility] 01-13-2023 13:55-0400 Body temperature 97.5 [degF] Navi Tellez MD Work Phone: [facility] 01-13-2023 13:55-0400 Diastolic blood pressure 89 mm[Hg] Navi Tellez MD Work Phone: [facility] 01-13-2023 13:55-0400 Heart rate 70 /min Navi Tellez MD Work Phone: [facility] 01-13-2023 13:55-0400 Respiratory rate 20 /min Naiv Tellez MD Work Phone: [facility] 01-13-2023 13:55-0400 SaO2% (BldA) [Mass fraction] 97 % Navi Tellez MD Work Phone: [facility] 01-13-2023 13:55-0400 Systolic blood pressure 133 mm[Hg] Navi Tellez MD Work Phone: [facility] 12-23-2022 11:04-0400 Diastolic Blood Pressure Non-Invasive 83 1 PRANAV BETH MD [facility] 12-23-2022 11:04-0400 Heart rate 72 /min PRANAV BETH MD [facility] 12-23-2022 11:04-0400 Respiratory rate 16 /min PRANAV BETH MD [facility] 12-23-2022 11:04-0400 Systolic Blood Pressure Non-Invasive 114 1 PRANAV BETH MD [facility] 12-23-2022 10:49-0400 Diastolic Blood Pressure Non-Invasive 88 1 PRANAV BETH MD [facility] 12-23-2022 10:49-0400 Heart rate 69 /min PRANAV BETH MD [facility] 12-23-2022 10:49-0400 Respiratory rate 14 /min PRANAV BETH MD [facility] 12-23-2022 10:49-0400 Systolic Blood Pressure Non-Invasive 116 1 PRANAV BETH MD [facility] 12-23-2022 10:34-0400 Body temperature 97.16 [degF] PRANAV BETH MD [facility] 12-23-2022 10:34-0400 Diastolic Blood Pressure Non-Invasive 69 1 PRANAV BETH MD [facility] 12-23-2022 10:34-0400 Heart rate 70 /min PRANAV BETH MD [facility] 12-23-2022 10:34-0400 Respiratory rate 16 /min PRANAV BETH MD [facility] 12-23-2022 10:34-0400 Systolic Blood Pressure Non-Invasive 100 1 PRANAV BETH MD [facility] 12-23-2022 09:19-0400 Body height 155 cm PRANAV BETH MD [facility] 12-23-2022 09:19-0400 Body temperature 98.78 [degF] PRANAV BETH MD [facility] 12-23-2022 09:19-0400 Body weight 56.8 kg PRANAV BETH MD [facility] 12-23-2022 09:19-0400 Body weight 23.64 kg/m2 PRANAV BETH MD [facility] 11-03-2022 09:16-0400 Body height 154.9 cm Navi Tellez MD Work Phone: [x+1] [employer] 11-03-2022 09:16-0400 Body mass index (BMI) [Ratio] 23.81 kg/m2 Navi Tellez MD Work Phone: [employer] 11-03-2022 09:16-0400 Body temperature 98.2 [degF] Navi Tellez MD Work Phone: [employer] 11-03-2022 09:16-0400 Body weight 57.15 kg Navi Tellez MD Work Phone: [employer] 11-03-2022 09:16-0400 Diastolic blood pressure 84 mm[Hg] Navi Tellez MD Work Phone: [employer] 11-03-2022 09:16-0400 Heart rate 78 /min Navi Tellez MD Work Phone: [x+1] [employer] 11-03-2022 09:16-0400 Systolic blood pressure 119 mm[Hg] Navi Tellez MD Work Phone: [facility] [employer] Encounters Encounter Date Encounter Type Care Provider Facility Start: 10-14-2024 ambulatory Myron Hammer ity:[facility] Start: 12-16-2023 Encounter for other preprocedural examination Elizabeth Nelson [facility] Start: 12-15-2023 End: 12-16-2023 ambulatory Natanael Raymond Facility:[facility] Start: 11-22-2023 End: 11-22-2023 ambulatory Kaushal Darnell Facility:[facility] Start: 09-28-2023 End: 10-02-2023 ambulatory BILLY MCNULTY APRN-MOBILE PET GROOMER Facility:[facility] Start: 09-28-2023 End: 10-02-2023 Outreach Lab BILLY MCNULTY APRN-MOBILE PET GROOMER [facility] Start: 09-20-2023 End: 09-20-2023 ambulatory NATANAEL RAYMOND DO Facility:[facility] Start: 09-20-2023 End: 09-20-2023 Patient encounter procedure NATANAEL SANTOSTS DO [facility] Start: 09-08-2023 End: 09-08-[address] MYRON ALICEA DO Facility:[facility] Start: 01-13-2023 End: 01-13-2023 ambulatory [facility] Start: 01-13-2023 End: 01-13-2023 Subsequent hospital visit by physician Navi Tellez MD Work Phone: [facility] Endoscopy Start: 12-23-2022 End: 12-23-2022 ambulatory PRANAV BETH MD Facility:[facility] Start: 12-23-2022 End: 12-23-2022 Minor Procedure PRANAV BETH MD [facility] Start: 11-03-2022 End: 11-03-2022 ambulatory [facility] Start: 11-03-2022 End: 11-03-2022 Office outpatient new 60 minutes Navi Tellez MD Work Phone: [facility] Comment on above: 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) Start: 10-25-2022 End: 10-25-2022 ambulatory SIMON SONG MD Facility:[facility] Start: 10-18-2022 End: 10-18-2022 ambulatory SIMON SONG MD Facility:[facility] Start: 09-14-2022 End: 09-14-2022 Patient encounter procedure SUSAN VASQUEZ TRANSACTION PROCESSOR-CNM [facility] Start: 09-08-2022 End: 09-12-2022 Outreach Lab SUSAN VASQUEZ TRANSACTION PROCESSOR-CNM [facility] Start: 08-24-2022 End: 08-24-2022 Patient encounter procedure JESSIKA RODRIGUEZ MD [facility] Start: 08-17-2022 End: 08-17-[address] MYRON ALICEA DO [facility] Start: 08-03-2022 End: 08-03-2022 Patient encounter procedure JESSIKA RODRIGUEZ MD [facility] Start: 11-10-2021 End: 01-12-2022 Physical therapy management ANTONI WHITMAN MD [facility] Start: 10-26-2016 Ambulatory PHY WO ID REFERRING Fac ility:[facility] Procedures Date Procedure Procedure Detail Performing Clinician Start: 10-25-2022 Hysterectomy PRANAV BETH MD Comment on above: LAPAROSCOPIC ASSISTE D VAGINAL HYSTERECTOMY WITH BILATERAL SALPINGECTOMY Start: 01-09-2016 Hysteroscopy with endometrial ablation ANTONI WHITMAN MD Colonoscopy PRANAV BETH MD Entire gallbladder ( body structure) ANTONI WHITMAN MD Comment on above: REMOVED LAPAOSCOPY 1 999 IUD contraception (finding) ANTONI WHITMAN MD Ligation of fallopian tube D SHADI WHITMAN MD Comment on above: 10 YEARS AGO Plan of Treatment Date Care Activity Detail Author Start: 12-03-2032 DTaP/Tdap/Td Vaccines (2 - Td or Tdap) DTaP/Tdap/Td Vaccines (2 - Td or Tdap) [facility] Start: 2025 Zoster Vaccines (1 of 2) Zoster Vaccines (1 of 2) [facility] Start: 01-13-2023 End: 01-13-2023 Njx dx/ther sbst intrlmnr lmbr/sac w/o img gdn INJECTION INTERLAMINAR LUMBAR SACRAL (CAUDAL) Spastic hemiplegia affecting unspecified side (HCC) 01/13/2023 7:57 AM EDT [facility] Gastroenterology Start: 12-17-2022 Influenza vaccination Influenza Vaccine (#1) [facility] Start: 10-10-2020 COVID-19 Vaccine (2 - Booster for Moderna series) COVID-19 Vaccine (2 - Booster for Moderna series) [facility] Start: 10-10-2020 COVID-19 Vaccine (2 - Moderna series) COVID-19 Vaccine (2 - Moderna series) [facility] Start: 2015 Screening for malignant neoplasm of breast Mammogram [facility] Start: 1994 DTaP/Tdap/Td Vaccines (1 - Tdap) DTaP/Tdap/Td Vaccines (1 - Tdap) [facility] Start: 1993 Hepatitis C screening Hepatitis C Screening [facility] Start: 1987 Depression Screening Depression Screening [facility] Start: 1981 Pneumococcal Vaccine: Pediatrics (0 to 5 Years) and At-Risk Patients (6 to 64 Years) (1 - PCV) Pneumococcal Vaccine: Pediatrics (0 to 5 Years) and At-Risk Patients (6 to 64 Years) (1 - PCV) [facility] Start: 1976 MMR Vaccines (1 of 1 - Standard series) MMR Vaccines (1 of 1 - Standard series) [facility] Start: 1975 Hepatitis B Vaccines (1 of 3 - 3-dose series) Hepatitis B Vaccines (1 of 3 - 3-dose series) [facility] Start: 1975 HIV screening HIV Screening [facility] Start: 1975 Lipid panel Lipid Panel [facility] Start: 1975 Screening for malignant neoplasm of colon [facility] Immunizations Immunization Date Immunization Notes Care Provider Fa cility 12-03-2022 tetanus toxoid, redu jonathan diphtheria toxoid, and acellular pertussis vaccine, adsorbed; Translations: [Boostrix (Tdap)] PRANAV BETH MD [facility] 08-15-2020 SARS-CoV-2 (COVID-19 ) mRNA-1273 vaccine PRANAV BETH MD [facility] Payers Date Payer Category Payer Self-pay 2022 Medicaid [id number] 2016 Unknown [id number] 1975 Unknown [id number] 2.16.8 [id number] 1975 Unknown [id number] 2.16.8 [id number] 1975 Unknown [id number] 2.16.8 [id number] 1975 Unknown [id number] 2.16.8 [id number] 1975 Unknown [id number] 2.16.8 [id number] 1975 Unknown [id number] 2.16.8 [id number] Unknown [id number] 2.16.8 [id number] Unknown [id number] 2.16.8 [id number] Unknown [id number] 2.16.8 [id number] Unknown [id number] 2.16.8 [id number] Social History Date Type Detail Facility Start: 11-21-2018 End: 09-27-2023 Tobacco smoking status Heavy tobacco smoker (finding) [facility] Sex Assigned At Female [facility] Start: 11-03-2022 Tobacco smoking stat [facility] Ex-smoker [facility] History of tobacco use Current smoker [facility] History of tobacco use Cigarette Smoker [facility] Start: 11-03-2022 End: 01-13-2023 Cigarettes smoked current (pack per day) - Reported 1 [facility] Start: 11-03-2022 End: 01-13-2023 Tobacco use and exposure Smokeless tobacco non-user [facility] Start: 11-03-2022 End: 01-13-2023 Alcohol intake Current drinker of alcohol (finding) [facility] Start: 11-03-2022 End: 01-13-2023 Tobacco use panel [facility] Start: 11-03-2022 Alcohol Comment Social drinker , usually if out to dinner or an event [facility] Start: 1975 Sex Assigned At Not on file [facility] Start: 10-24-2022 End: 01-07-2023 Exposure to SARS-CoV-2 (event) Not sure [facility] Start: 01-13-2023 Tobacco smoking stat [facility] Smokes tobacco daily [facility] Functional Status Date Assessment Result Facility 12-23-2022 Functional Status Repositioned b ack, Repositions self [facility] 12-23-2022 Functional Status Independent [facility] 11-10-2021 Functional Status Home Living Ad ditional Information OBJECTIVE Vitals: BP 125/80 Posture: forward trunk, shift to L Gait: marked spastic gait with cane, twisting body with scissoring gait Transfers: WNL Sensation: no abnormalities or asymmetries Reflexes: NT Edema: none AROM: severe restriction with extension, mod restriction with laera flexion, WNL flexion Slump Test: neg bilat [facility] Mental Status Date Assessment Result Facility 12-23-2022 Mental Status Oriented x 4 [facility] 12-23-2022 Mental Status [facility] Clinical Notes 08-03-2022 to 12-15-2023 Perioperative Nursing Note - Kevyn Delgado RN - 01/13/2023 11:04 AM EDTPerioperative Nursing Note - Kevyn Delgado RN - 01/13/2023 11:04 AM SCHUYLERTPina Rico MA - 11/03/2022 9:30 AM EDT Note Date & Type Note Facility 12-15-2023 Note [facility] Medical Records Department [address] [place] [address] Discharge Summary 12/15/23 1225 MR#: [id number] Acct: [id number] Name: BRITTNEE HOLLAND Rep #: [id number] : 1975 48 From: Natanael Raymond DO PCP: Dr. Myron Alicea DO Status:ADM ALAN Location: [facility]3 SG707-7 Providers Date of Admission: 12/15/23 Primary Care Physician: Dr. Myron Alicea, DO Reason For Visit: LUMBAR 4 - LUMBAR 5 POSTERIOR LUMBA Diagnosis Discharge Diagnosis (1) Lumbar stenosis: Status: Acute Code(s): M48.061 - Spinal stenosis, lumbar region without neurogenic claudication Plan: Okay to admit See orders Discharge planning, likely home tomorrow Medications at Discharge Home Medications baclofen 20 mg tablet 20 mg PO TID 11/21/23 cholecalciferol (vitamin D3) 50 mcg (2,000 unit) capsule (Vitamin D3) 50 mcg PO DAILY 11/21/23 hydrocodone-acetaminophen 5-325mg 5mg-325mg 1 tab PO Q6H 7 days #28 tabs 12/15/23 Hospital Course Operations - (L4-5 posterior lumbar interbody fusion, decompression, posterior spinal fusion with instrumentation, use of allograft) Summary of Care Provided Minutes Spent on Discharge: 15 Hospital Course: The patient is a 48-year-old female who underwent L4-5 fusion on 12/15/2023. She was subsequently admitted. The hospitalist was consulted for medical management. The patient progressed well. Her pain was controlled and she was mobilizing well. No significant medical issues were reported. She was subsequently discharged home on 12/16/2023 to follow-up with Dr. Raymond in 3 weeks Physical Exam Const alert, oriented x3 and no apparent distress General Appearance: cooperative, comfortable and well kempt Neck full ROM General: normal visual inspection Resp normal respiratory effort and normal air movement Effort and Inspection: able to speak in complete sentences Cardio regular rate and peripheral pulses 2+ throughout GI soft to palpation, non-tender and non-distended Back/Spine Back/Spine Narrative: Dressing clean dry and intact. Incision well-approximated with interrupted sutures in place Cervical Spine: cervical ROM normal Thoracic Spine / Upper Back: normal to inspection Lumbar Spine / Lower Back: normal to inspection Extremity normal to inspection, full ROM, normal capillary refill, no clubbing, cyanosis or edema and no calf tenderness Skin no rashes or lesions noted General Skin Exam: no breakdown Neuro oriented x3, CN's II-XII intact bilaterally, moves all extremities, no focal motor deficits, no sensory deficits noted and deep tendon reflexes 2+ bilaterally Motor Exam: strength 5/5 throughout and muscle tone normal throughout Weight / BMI Weight Weight: 123 lb 7.342 oz Body Mass Index (BMI) 23.3 ABG / Lab / Microbiology Data 11/22/23 11:32 11/22/23 11:32 Laboratory: Laboratory Results - last 24 hr 12/15/23 10:54: POC Glucose 81 D/C Instructions Discharge Diet: No restrictions Additional Activity Instructions: Wear back brace at all times. No bending twisting or lifting more than 5 pounds Call your doctor if your incision/area has: Continuous Slow Oozing, Sudden Increased Bleeding, Increased Pain/ Swelling, Increased Redness, Foul Smelling Discharge and Swelling at the incision site Call your doctor if you observe: Fever of 101 or Higher, Coldness, Increased Pain, Numbness or Tingling, Change in Color, Inability to urinate, Inability to have a bowel movement, Using more than 1 pad per hour, Shortness of breath, Dizziness, Fainting spells, Swelling in the ankles, Chest pain, Prolonged hiccupping, Increased palpitations (irregular heartbeat), Calf discomfort and Uncontrolled pain Additional Dressing/Incision Instructions: Change dressing daily with gauze and tape Additional Instructions: 1. During your procedure, you received sedation through your IV. Please follow these instructions for the next 24 hours: Do not drive a motor vehicle, do not drink any alcoholic beverages, and do not sign any legal documents or make personal or business decisions. A responsible adult should stay with you at least 6 hours after the procedure. 2. Keep your surgical site/incision clean and the dressing dry and intact. You may use an ice pack at the surgical site to reduce any swelling or discomfort. 3. Monitor the incision site for any signs or symptoms of infection. Watch for redness, excessive swelling or drainage, or continued pain at the incision site after 3 days. Contact your physician immediately for a fever, chills or a temperature of 101.5??? F or greater. 4. Take your medication exactly as prescribed by your physician. Do not attempt to wean yourself off any of your medications even though your pain is improving. This process needs to be carefully monitored by your doctor. Take any antibiotics prescribed exactly (more content not included)... [facility] 10-01-2023 Note . MICRO - Microbiology PROCEDURE: Stool Culture [^1 *1] SOURCE: Stool BODY SITE: COLLECTED DATE/TIME: 09/28/2023 09:50 EDT RECEIVED DATE/TIME: 09/28/2023 14:05 EDT START DATE/TIME: 09/28/2023 14:05 EDT FREE TEXT SOURCE: FINAL REPORTS Final Report [] Verified Date/Time/Personnel: 10/01/2023 12:49 EDT Normal stool tammy present. Salmonella: Negative Shigella: Negative Campylobacter: Negative PRELIMINARY REPORTS Preliminary Report [] Verified Date/Time/Personnel: 09/30/2023 10:31 EDT Normal stool tammy present. Negative for stool pathogens at 48 hours. Final report to follow. Interpretive Data ^1: Culture Stool Requests for alternative pathogens including Yersinia, E. coli 0157, C. difficile toxin, Rotavirus, Giardia and parasites require specific requests. Performing Locations *1: This test was performed at: [address] 09-29-2023 Note . MICRO - Microbiology PROCEDURE: Shiga Toxins 1 and 2 [[id number]: [id number] ^1 *1] SOURCE: Stool BODY SITE: COLLECTED DATE/TIME: 09/28/2023 14:05 EDT RECEIVED DATE/TIME: 09/28/2023 14:05 EDT START DATE/TIME: 09/28/2023 14:05 EDT FREE TEXT SOURCE: FINAL REPORTS Final Report [] Verified Date/Time/Personnel: 09/29/2023 13:43 EDT Absence of Shiga toxin 1 Absence of Shiga toxin 2 Order Comments O1: Shiga Toxins 1 and 2 ordered by lab as part of Culture Stool Panel Interpretive Data ^1: Shiga Toxins 1 and 2 Testing performed by immunochromatography. Performing Locations *1: This test was performed at: [address] ([facility] 09-28-2023 Note . MICRO - Microbiology PROCEDURE: Fecal Leukocytes [*1] SOURCE: Stool BODY SITE: COLLECTED DATE/TIME: 09/28/2023 09:50 EDT RECEIVED DATE/TIME: 09/28/2023 14:06 EDT START DATE/TIME: 09/28/2023 14:06 EDT FREE TEXT SOURCE: FINAL REPORTS Final Report [] Verified Date/Time/Personnel: 09/28/2023 14:57 EDT Microscopy: Fecal Leukocytes Absent From our data, approximately 50% of enteroinvasive bacterial pathogens will not be associated with stool WBC's. Performing Locations *1: This test was performed at: [facility], [address] [place] [address], [facility] 01-13-2023 Note Physical Therapy Facility - [facility] Physical Therapy Baclofen Trial Evaluation NAME: Brittnee Holland : 1975 General Date of Assessment: 01/13/2023 BMI: There is no height or weight on file to calculate BMI. Fall Risk Assessment Summary: Patient is considered a high risk of falling based on current symptoms and B LE spasticity. Significant Medical Diagnosis/Condition: Hereditary spastic paraplegia Treatment Guidelines (as applicable): PT Eval, 2 hour follow-up, 4 hour follow-up - adjusted to 5 hour follow-up after communication with Dr. Tellez post 2 hour follow-up due to patients instability with ambulation and concerns for safe discharge home. SUBJECTIVE Chief complaint: The patient is a 47 y.o. female who presents with complaint of Hereditary spastic paraplegia. She states her biggest issue is her hamstrings do not want to relax. Patient range of motion of her hips significantly decreased secondary to spasticity of her lower extremity muscles. In the past patient was complaining of severe spasms in both lower extremities. Initial Pain Assessment: 0-10 pain scale: 8/10 Location: B hamstrings R > L; Low back Pain Type: [] Acute pain [x] Chronic pain [] Neuropathic pain [] Deep Somatic [] Intractable pain [] Other Pain Orientation and Descriptors: Ache, sore, constant Rehab expectations (Patient Goal): Patient states she wants to improve her ability to ambulate safely and decrease her pain and spasms throughout the day. Medical History: The patient has a past medical history of Difficulty walking (2016), Fibroids, Hereditary spastic paraparesis (CMS/HCC) ([facility]) (2016), and Weakness of limb (2016). Social/Functional History Lives With: with her significant other and 2 children Type of Home: single family home Home Layout: two level bedroom and bathroom upstairs, half bath on main level Home Access: stairs to enter with rails - 2 Bathroom Shower/Tub: tub/shower unit with grab bars Bathroom Toilet: Standard with grab bars Bathroom Equipment: grab bars in shower and grab bars around tub Bathroom Accessibility: accessible Home Equipment: cane Receives Help From: family ADL Assistance: independently Homemaking Assistance: independently Homemaking Responsibilities: joint tasks with family Ambulation Assistance: independently with cane 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 Mode of transportation: car OBJECTIVE Modified Anuradha Scale (MAS) Scoring: No increase in muscle tone Slight increase in muscle tone, manifested by catch and release or by minimal resistance at the end of the range of motion when the affected part(s) is moved in flexion or extension 1+ Slight increase in muscle tone, manifested by a catch, followed by minimal resistance throughout the remainder (less than half) More marked increase tone throughout most of the ROM but affected part(s) easily moved Considerable increase in muscle tone, passive movement difficult Affected part(s) rigid in flexion or extension Pre-Bolus Time 0745 Post-Bolus Time 1030 Post-Bolus Time 1330 Left Right Left Right Left Right Shoulder Flexion 0 0 0 0 0 0 Shoulder Extension 0 0 0 0 0 0 Shoulder Abduction 0 0 0 0 0 0 Elbow Flexion 0 0 0 0 0 0 Elbow Extension 0 0 0 0 0 0 Wrist Flexion 0 0 0 0 0 0 Wrist Extension 0 0 0 0 0 0 Hip Flexion 2 2 1 1 1 1 Hip Extension 0 0 0 0 0 0 Hip Abduction 2 2 1 1 2 2 Knee Flexion 2 3 1+ 1+ 1+ 1+ Knee Extension 3 3 1+ 1+ 2 3 Ankle Dorsiflexion 0 0 0 0 0 0 Ankle Plantarflexion 0 0 0 0 0 0 [place] Spasm Frequency Scale (PSFS) Spasm Frequency Scoring: No spasms Mild spasms induced by stimulation Infrequent full spasm occurring less than once per hour Spasms occurring more than once per hour Spasms occurring more than 10 times per hour Spasm Severity: Mild Moderate Severe Pre-Bolus Time 0745 Post-Bolus Time 1030 Post-Bolus Time 1330 Left Right Left Right Left Right Shoulder Flexion 0 0 0 0 0 0 Shoulder Extension 0 0 0 0 0 0 Shoulder Abduction 0 0 0 0 0 0 Elbow Flexion 0 0 0 0 0 0 Elbow Extension 0 0 0 0 0 0 Wrist Flexion 0 0 0 0 0 0 Wrist Extension 0 0 0 0 0 0 Hip Flexion 0 0 0 0 0 0 Hip Extension 2/1 2/2 /04/18 0 0 Hip Abduction 0 0 0 0 0 0 Knee Flexion 0 0 0 0 0 0 Knee Extension 2/ 2/2 04/18 04/18 0 0 Ankle Dorsiflexion 0 0 0 0 0 0 Ankle Plantarflexion 0 0 0 0 0 0 Functional Mobility - Initial Bed Mobility Baseline: independent ? Device: n/a Comments: Pt completes without assist or difficulty with increased time. Transfers Baseline: independent ? Device: to SPC ? Type of transfer: STS to SPC from EOB and commode Comments: Patient demonstrates no true LOB or instability on initial stance. Gait Baseline: supervision / independent ? Device: SPC ? Distance: 100 ft x 2 Comments: Patient demonstrates scissoring squatting gait pattern with B foot clearance, and B trendelenburg weakness observed, no true LOB, ins (more content not included)... [facility] 01-13-2023 Note Formatting of this n ote might be different from the original. PT worked with pt - pt unsteady / weak ambulating. PT spoke with Dr. Tellez and updated. Plan for PT to work with pt again at aprox 1330. Will monitor - pt back in bed call light in reach. T [facility] 01-13-2023 Note Formatting of this n ote might be different from the original. PT worked with pt - pt unsteady / weak ambulating. PT spoke with Dr. Tellez and updated. Plan for PT to work with pt again at aprox 1330. Will monitor - pt back in bed call light in reach. T [facility] 01-13-2023 Miscellaneous Notes PT worked with pt - pt unsteady / weak ambulating. PT spoke with Dr. Tellez and updated. Plan for PT to work with pt again at aprox 1330. Will monitor - pt back in bed call light in reach. documented in this encounter [facility] 01-13-2023 Note INTRATHECAL BACLOFEN TRIAL Diagnoses: Familial spastic paraparesis. Risk and benefits were explained to patient and she desired to proceed. They were the patient placed in sitting position her lumbosacral region was prepped and drapped in a standard fashion. Then a 22-gauge 3-1/2 inch spinal needle was placed in the L4-L5 intervertebral space. 2 mL of clear spinal fluid were pain and then patient was injected with 50 mcg of 5% but the free baclofen solution. No complications were noted after the procedure.. Then patient was transfer to her stepdown going to wait for physical therapy evaluation after 2 and 4 hours. [facility] 01-13-2023 History of Presen t illness Narrative Physical Therapy Facility - [facility] Physical Therapy Baclofen Trial Evaluation NAME: Brittnee Holland : 1975 General Date of Assessment: 01/13/2023 BMI: There is no height or weight on file to calculate BMI. Fall Risk Assessment Summary: Patient is considered a high risk of falling based on current symptoms and B LE spasticity. Significant Medical Diagnosis/Condition: Hereditary spastic paraplegia Treatment Guidelines (as applicable): PT Eval, 2 hour follow-up, 4 hour follow-up - adjusted to 5 hour follow-up after communication with Dr. Tellez post 2 hour follow-up due to patients instability with ambulation and concerns for safe discharge home. SUBJECTIVE Chief complaint: The patient is a 47 y.o. female who presents with complaint of Hereditary spastic paraplegia. She states her biggest issue is her hamstrings do not want to relax. Patient range of motion of her hips significantly decreased secondary to spasticity of her lower extremity muscles. In the past patient was complaining of severe spasms in both lower extremities. Initial Pain Assessment: 0-10 pain scale: 8/10 Location: B hamstrings R > L; Low back Pain Type: [] Acute pain [x] Chronic pain [] Neuropathic pain [] Deep Somatic [] Intractable pain [] Other Pain Orientation and Descriptors: Ache, sore, constant Rehab expectations (Patient Goal): Patient states she wants to improve her ability to ambulate safely and decrease her pain and spasms throughout the day. Medical History: The patient has a past medical history of Difficulty walking (2016), Fibroids, Hereditary spastic paraparesis (CMS/HCC) ([facility]) (2016), and Weakness of limb (2016). Social/Functional History Lives With: with her significant other and 2 children Type of Home: single family home Home Layout: two level bedroom and bathroom upstairs, half bath on main level Home Access: stairs to enter with rails - 2 Bathroom Shower/Tub: tub/shower unit with grab bars Bathroom Toilet: Standard with grab bars Bathroom Equipment: grab bars in shower and grab bars around tub Bathroom Accessibility: accessible Home Equipment: cane Receives Help From: family ADL Assistance: independently Homemaking Assistance: independently Homemaking Responsibilities: joint tasks with family Ambulation Assistance: independently with cane 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 Mode of transportation: car OBJECTIVE Modified Anuradha Scale (MAS) Scoring: No increase in muscle tone Slight increase in muscle tone, manifested by catch and release or by minimal resistance at the end of the range of motion when the affected part(s) is moved in flexion or extension 1+ Slight increase in muscle tone, manifested by a catch, followed by minimal resistance throughout the remainder (less than half) More marked increase tone throughout most of the ROM but affected part(s) easily moved Considerable increase in muscle tone, passive movement difficult Affected part(s) rigid in flexion or extension Pre-Bolus Time 0745 Post-Bolus Time 1030 Post-Bolus Time 1330 Left Right Left Right Left Right Shoulder Flexion 0 0 0 0 0 0 Shoulder Extension 0 0 0 0 0 0 Shoulder Abduction 0 0 0 0 0 0 Elbow Flexion 0 0 0 0 0 0 Elbow Extension 0 0 0 0 0 0 Wrist Flexion 0 0 0 0 0 0 Wrist Extension 0 0 0 0 0 0 Hip Flexion 2 2 1 1 1 1 Hip Extension 0 0 0 0 0 0 Hip Abduction 2 2 1 1 2 2 Knee Flexion 2 3 1+ 1+ 1+ 1+ Knee Extension 3 3 1+ 1+ 2 3 Ankle Dorsiflexion 0 0 0 0 0 0 Ankle Plantarflexion 0 0 0 0 0 0 [place] Spasm Frequency Scale (PSFS) Spasm Frequency Scoring: No spasms Mild spasms induced by stimulation Infrequent full spasm occurring less than once per hour Spasms occurring more than once per hour Spasms occurring more than 10 times per hour Spasm Severity: Mild Moderate Severe Pre-Bolus Time 0745 Post-Bolus Time 1030 Post-Bolus Time 1330 Left Right Left Right Left Right Shoulder Flexion 0 0 0 0 0 0 Shoulder Extension 0 0 0 0 0 0 Shoulder Abduction 0 0 0 0 0 0 Elbow Flexion 0 0 0 0 0 0 Elbow Extension 0 0 0 0 0 0 Wrist Flexion 0 0 0 0 0 0 Wrist Extension 0 0 0 0 0 0 Hip Flexion 0 0 0 0 0 0 Hip Extension 2/ 2/2 04/18 04/18 0 0 Hip Abduction 0 0 0 0 0 0 Knee Flexion 0 0 0 0 0 0 Knee Extension 2/ 2/2 04/18 04/18 0 0 Ankle Dorsiflexion 0 0 0 0 0 0 Ankle Plantarflexion 0 0 0 0 0 0 Functional Mobility - Initial Bed Mobility Baseline: independent ? Device: n/a Comments: Pt completes without assist or difficulty with increased time. Transfers Baseline: independent ? Device: to SPC ? Type of transfer: STS to SPC from EOB and commode Comments: Patient demonstrates no true LOB or instability on initial stance. Gait Baseline: supervision / independent ? Device: SPC ? Distance: 100 ft x 2 Comments: Patient demonstrates scissoring squatting gait pattern with B foot clearance, and B trendelenburg weakness observed, no true LOB, instability throughout all phases, slow nikunj Wheelchair Mobility Baseline: N/A ? Distance: Comments: Functional Mobility - Post Bolus Bed Mobility Post Bolus (2 hrs): independent Post Bolus (5 hrs): independent ? Device: n/a ? Device: n/a Comments: Increased time to complete. No physical assist or overall difficulty noted. Comments: Increased time to complete. No physical assist or overall difficulty noted. Transfers Post Bolus (2 hrs): stand by assist Post Bolus (5 hrs): supervision ? Device: SPC from EOB, FWW from commode and wheelchair ? Device: to FWW from EOB and commode ? Type of transfer: STS ? Type of transfer: STS Comments: Initial STS with SPC (baseline), however due to instability FWW provided for further transfers and ambulation. Pt able to complete 3 STS with FWW and SBA to complete safety. Cues for hand placement with new use of FWW. Comments: Pt demonstrates no true LOB or instability on initial stance with use of FWW for 1 UE support for initial standing balance. Pt demonstrates good carryover in regard to hand placement from previous session. Gait Post Bolus (2 hrs): Mod assist x 1 Post Bolus (5 hrs): stand by assist / supervision ? Device: FWW ? Device: FWW ? Distance: 80 ft x 1, wheelchair assist to complete distance from bathroom back to room due to instability. ? Distance: 80 ft x 2 Comments: Initially attempted with SPC, however due to limited foot clearance and B LE weakness. Patient demonstrates worsening scissoring squatting gait pattern with inability to clear B feet during swing phase and worsening B trendelenburg weakness causing toes/ankle to catch opposite posterior lower leg/heel during advancement, instability throughout all phases, slow nikunj. This therapist called Dr. Tellez at 2 hour follow-up due to significant change in instability and discharge concerns. Dr. Tellez recommended follow-up at 5 hour to vs. 4 hour to at this time. Patient notified of change. Comments: Patient demonstrates improvements as compared to 2 hour follow-up session. Pt demonstrates step to pattern leading with her L LE and decreased scissoring squatting gait pattern with B foot clearance, and B trendelenburg weakness observed, no true LOB, instability throughout all phases, slow nikunj. Patient demonstrates improved ambulation at this time and is agreeable to a FWW for home going. Dr. Tellez and RN notified of need for FWW at this time. Patients significant other present and also agreeable to providing SBA/supervision at this time for safety. Patient and her significant other report feeling comfortable returning home at this time with a FWW. Wheelchair Mobility Post Bolus (2 hrs): N/A Post Bolus (4 hrs): N/A ? Distance: ? Distance: Comments: Comments: Goals Assessment Only ASSESSMENT Conditions Requiring Skilled Therapeutic Interventions Response to Baclofen Trial: Patient presents for intrathecal baclofen pump trial with h/o Hereditary spastic paraplegia. Patient at baseline is able to complete all mobility independently and uses a cane for ambulation. On Initial eval pre-bolus patient denies pain. Pt reports a PSFS score of 2 for B LE hip and knee extension with mild severity in the L and moderate in the R. Patients MAS pre-bolus was 2 to 3 in B LE, worst with knee extension B LE at 3. Patient demonstrated slight decrease in B LE spasms and frequency from pre-bolus to 2 hour and continued improvements from 2 hours to 5 hour assessment reporting no spasms present between 2 and 5 hour follow up. On the MAS this pt improved from 2 to 3 in B LE, worst with knee flexion B LE at 3, improving to 1+ and 1 at knee flexion and extension and hip flexion at 2 hours. Patient demonstrates slight increase in tone/spasticity from 2 hour to 5 hour follow-up remaining at 1 in B hip flexors, increasing back to 2 from 1 in B hip abductors, remaining at 1+ for B knee flexors and increaseing to 2 on L and 3 on R for knee extension. Patient initially demonstrated a significant decrease in functional mobility going from independent with a cane to modA x 1 for ambulation with FWW at 2 hour follow-up. Therefore, per Dr. Tellez's recommendation the final follow-up was completed at 5 hours. At that time patient was able to ambulate with SBA/supervision with FWW and is agreeable to have a FWW for home going at this time and continued assist from significant other as needed. Overall, patient demonstrates noted improvements on the MAS and spasms at 2 hours and slight continued benefits at 5 hours. Due to patients decrease in safety and increase in need for level of assist for mobility, the baclofen pump is not currently recommended as patient seems to rely significantly on her tone/spasticity for functional mobility and stability in order to be a functional ambulator. Pt may benefit from Baclofen pump in the future with continued strength training with PT to allow patient to be able to have less reliance on her tone for functional support during mobility. Communicated assessment with Dr. Tellez post 2 hour and 5 hour assessment. Rehab Potential/Prognosis: good/fair Decision Making: moderate Barriers to Learning/Rehab: none Recommendation for Baclofen Pump: Do not recommend baclofen pump at this time, however could be considered for baclofen pump in the future with continued management of spasticity in conjunction with strength and balance training. Discharge Recommendations: - Consider referral to outpatient PT: Evaluation & Treatment Results of Baclofen Trial was discussed and communicated with Dr. Tellez. Patient Education Education consisted of : goals, PT role, plan of care, transfer training, gait training, functional mobility training, general safety, and family education/training PLAN Frequency and Duration of Care: Evaluation followed by 2 post bolus treatments this date. Treatment Recommendations: strengthening, ROM, functional mobility training, transfer training, balance training, gait training, and neuro re-education Minute Tracking Initial Assessment: Time In: 0735 Time Out: 0757 Time Coded Treatment Minutes: 22 [] High Complexity [x] Moderate Complexity [] Low Complexity 2 Hours Post Bolus: Time In: 1030 Time Out: 1057 Time Coded Treatment Minutes: 27 TX PhysPerf Test/Jesús. Rpt. Q15 x 1 TX Gait Q15 x 1 4 Hours Post Bolus: Time In: 1319 Time Out: 1357 Time Coded Treatment Minutes: 38 TX PhysPerf Test/Jesús. Rpt. Q15 x 1 TX Gait Q15 x 1 Goals and treatment plan were established in collaboration with patient. Cecilia Seth PT 01/13/2023 10:05 AM documented in this encounter [facility] 01-13-2023 Note Department of Neurol ogical Sciences H&P CHIEF COMPLAINT: Chief Complaint Patient presents with New Patient Hereditary Spastic Paraparesis Reason for Consult: Discuss possible baclofen pump trial HISTORY OF PRESENT ILLNESS: The patient is a 47 y.o. female who presents with complaint of Hereditary spastic paraplegia. Patient presents alone for her visit. She ambulates with a cane. She states her biggest issue is her hamstrings do not want to relax. Patient range of motion of her hips significantly decreased secondary to spasticity of her lower extremity muscles. She is a still quite functional. She tried to walk with a cane and she tells me that she rarely falls. In the past patient was complaining of severe spasms in both lower extremities. Patient was started on baclofen 20 mg p.o. 3 times daily and she is doing much better. She is still have frequent spasms but not as severe as before. Patient complaining of tiredness and sleepiness with baclofen. Today patient is referred for evaluation of possible intrathecal baclofen trial. Patient denies any weakness with baclofen. Patient has a pain strong family history of familial spastic paraparesis. Her father, her father 2 uncles and in 2 cousins have a spastic paraparesis.. Patient denied any spasticity in cranial nerves or upper extremity. --She is positive for hypertension. She is currently prescribed lisinopril 2.5 mg for management. --There is family history of Alzheimer's disease and anxiety disorder. --She is a former cigarette smoker. She drinks alcohol socially. She drinks caffeine daily. Past Medical History: Medical History Past Medical History: Diagnosis Date Difficulty walking 2015 Weakness of limb 2015 Past Surgical History: Surgical History History reviewed. No pertinent surgical history. Medications: Current Medications Current Outpatient Medications Medication Sig Dispense Refill baclofen (Lioresal) 20 MG tablet Take 1 tablet by mouth 3 times daily. gabapentin (Neurontin) 300 MG capsule Take 300 mg by mouth 3 times daily. lisinopril 2.5 MG tablet Take 2.5 mg by mouth daily. No current facility-administered medications for this visit. Allergies: Patient has no known allergies. Social History: Social History Socioeconomic History Marital status: Spouse name: Not on file Number of children: Not on file Years of education: Not on file Highest education level: Not on file Occupational History Not on file Tobacco Use Smoking status: Former Packs/day: 1.00 Years: 30.00 Pack years: 30.00 Types: Cigarettes Smokeless tobacco: Never Vaping Use Vaping Use: Never used Substance and Sexual Activity Alcohol use: Yes Comment: Social drinker, usually if out to dinner or an event Drug use: Never Sexual activity: Yes Partners: Male control/protection: Other Comment: Had tubal in 2005, hysterectomy 10/25/22 Other Topics Concern Not on file Social History Narrative Not on file Social Determinants of Health Financial Resource Strain: Not on file Food Insecurity: Not on file Transportation Needs: Not on file Physical Activity: Not on file Stress: Not on file Social Connections: Not on file Intimate Partner Violence: Not on file Housing Stability: Not on file Family History: Family History Family History Problem Relation Name Age of Onset Alzheimer's disease Mother Margo Calle Anxiety disorder Mother Margo Calle REVIEW OF SYSTEMS: Review of Systems Constitutional: Negative. Negative for diaphoresis, fatigue and fever. HENT: Negative. Eyes: Negative. Respiratory: Negative. Negative for shortness of breath. Cardiovascular: Negative. Negative for chest pain and palpitations. Gastrointestinal: Negative. Negative for abdominal pain, nausea and vomiting. Endocrine: Negative. Genitourinary: Negative. Musculoskeletal: Positive for back pain and myalgias. Negative for neck pain. Skin: Negative. Allergic/Immunologic: Negative. Neurological: Positive for weakness. Negative for dizziness, syncope, light-headedness and headaches. Hematological: Negative. Psychiatric/Behavioral: Negative. Negative for confusion. PHYSICAL EXAM: Vitals: BP 119/84 (BP Location: Right arm) Pulse 78 Temp 36.8 ?C (98.2 ?F) (Infrared) Ht 5' 1 (1.549 m) Wt 126 lb (57.2 kg) BMI 23.81 kg/m? Physical Exam Constitutional: Appearance: Normal appearance. HENT: Head: Normocephalic and atraumatic. Nose: Nose normal. Mouth/Throat: Mouth: Mucous membranes are moist. Pharynx: Oropharynx is clear. Eyes: General: Vision grossly intact. Gaze aligned appropriately. Extraocular Movements: Extraocular movements intact. Conjunctiva/sclera: Conjunctivae normal. Pupils: Pupils are equal, round, and reactive to light. Neck: Trachea: Trachea and phonation normal. Cardiovascular: Rate and Rhythm: Normal rate and regular rhythm. Pulses: Neha (more content not included)... [facility] 01-13-2023 Procedure note INTRATHECAL BACLOFEN TRIAL Diagnoses: Familial spastic paraparesis. Risk and benefits were explained to patient and she desired to proceed. They were the patient placed in sitting position her lumbosacral region was prepped and drapped in a standard fashion. Then a 22-gauge 3-1/2 inch spinal needle was placed in the L4-L5 intervertebral space. 2 mL of clear spinal fluid were pain and then patient was injected with 50 mcg of 5% but the free baclofen solution. No complications were noted after the procedure.. Then patient was transfer to her stepdown going to wait for physical therapy evaluation after 2 and 4 hours. [facility] 01-13-2023 Procedure note INTRATHECAL BACLOFEN TRIAL Diagnoses: Familial spastic paraparesis. Risk and benefits were explained to patient and she desired to proceed. They were the patient placed in sitting position her lumbosacral region was prepped and drapped in a standard fashion. Then a 22-gauge 3-1/2 inch spinal needle was placed in the L4-L5 intervertebral space. 2 mL of clear spinal fluid were pain and then patient was injected with 50 mcg of 5% but the free baclofen solution. No complications were noted after the procedure.. Then patient was transfer to her stepdown going to wait for physical therapy evaluation after 2 and 4 hours. documented in this encounter [facility] 01-13-2023 History and physical note Department of Neurological Sciences H&P CHIEF COMPLAINT: Chief Complaint Patient presents with New Patient Hereditary Spastic Paraparesis Reason for Consult: Discuss possible baclofen pump trial HISTORY OF PRESENT ILLNESS: The patient is a 47 y.o. female who presents with complaint of Hereditary spastic paraplegia. Patient presents alone for her visit. She ambulates with a cane. She states her biggest issue is her hamstrings do not want to relax. Patient range of motion of her hips significantly decreased secondary to spasticity of her lower extremity muscles. She is a still quite functional. She tried to walk with a cane and she tells me that she rarely falls. In the past patient was complaining of severe spasms in both lower extremities. Patient was started on baclofen 20 mg p.o. 3 times daily and she is doing much better. She is still have frequent spasms but not as severe as before. Patient complaining of tiredness and sleepiness with baclofen. Today patient is referred for evaluation of possible intrathecal baclofen trial. Patient denies any weakness with baclofen. Patient has a pain strong family history of familial spastic paraparesis. Her father, her father 2 uncles and in 2 cousins have a spastic paraparesis.. Patient denied any spasticity in cranial nerves or upper extremity. --She is positive for hypertension. She is currently prescribed lisinopril 2.5 mg for management. --There is family history of Alzheimer's disease and anxiety disorder. --She is a former cigarette smoker. She drinks alcohol socially. She drinks caffeine daily. Past Medical History: Medical History Past Medical History: Diagnosis Date Difficulty walking 2015 Weakness of limb 2015 Past Surgical History: Surgical History History reviewed. No pertinent surgical history. Medications: Current Medications Current Outpatient Medications Medication Sig Dispense Refill baclofen (Lioresal) 20 MG tablet Take 1 tablet by mouth 3 times daily. gabapentin (Neurontin) 300 MG capsule Take 300 mg by mouth 3 times daily. lisinopril 2.5 MG tablet Take 2.5 mg by mouth daily. No current facility-administered medications for this visit. Allergies: Patient has no known allergies. Social History: Social History Socioeconomic History Marital status: Spouse name: Not on file Number of children: Not on file Years of education: Not on file Highest education level: Not on file Occupational History Not on file Tobacco Use Smoking status: Former Packs/day: 1.00 Years: 30.00 Pack years: 30.00 Types: Cigarettes Smokeless tobacco: Never Vaping Use Vaping Use: Never used Substance and Sexual Activity Alcohol use: Yes Comment: Social drinker, usually if out to dinner or an event Drug use: Never Sexual activity: Yes Partners: Male control/protection: Other Comment: Had tubal in 2005, hysterectomy 10/25/22 Other Topics Concern Not on file Social History Narrative Not on file Social Determinants of Health Financial Resource Strain: Not on file Food Insecurity: Not on file Transportation Needs: Not on file Physical Activity: Not on file Stress: Not on file Social Connections: Not on file Intimate Partner Violence: Not on file Housing Stability: Not on file Family History: Family History Family History Problem Relation Name Age of Onset Alzheimer's disease Mother Margo Calle Anxiety disorder Mother Margo Calle REVIEW OF SYSTEMS: Review of Systems Constitutional: Negative. Negative for diaphoresis, fatigue and fever. HENT: Negative. Eyes: Negative. Respiratory: Negative. Negative for shortness of breath. Cardiovascular: Negative. Negative for chest pain and palpitations. Gastrointestinal: Negative. Negative for abdominal pain, nausea and vomiting. Endocrine: Negative. Genitourinary: Negative. Musculoskeletal: Positive for back pain and myalgias. Negative for neck pain. Skin: Negative. Allergic/Immunologic: Negative. Neurological: Positive for weakness. Negative for dizziness, syncope, light-headedness and headaches. Hematological: Negative. Psychiatric/Behavioral: Negative. Negative for confusion. PHYSICAL EXAM: Vitals: BP 119/84 (BP Location: Right arm) Pulse 78 Temp 36.8 C (98.2 F) (Infrared) Ht 5' 1 (1.549 m) Wt 126 lb (57.2 kg) BMI 23.81 kg/m Physical Exam Constitutional: Appearance: Normal appearance. HENT: Head: Normocephalic and atraumatic. Nose: Nose normal. Mouth/Throat: Mouth: Mucous membranes are moist. Pharynx: Oropharynx is clear. Eyes: General: Vision grossly intact. Gaze aligned appropriately. Extraocular Movements: Extraocular movements intact. Conjunctiva/sclera: Conjunctivae normal. Pupils: Pupils are equal, round, and reactive to light. Neck: Trachea: Trachea and phonation normal. Cardiovascular: Rate and Rhythm: Normal rate and regular rhythm. Pulses: Normal pulses. Heart sounds: Normal heart sounds. Pulmonary: Effort: Pulmonary effort is normal. Breath sounds: Normal breath sounds. Abdominal: General: Abdomen is flat. Bowel sounds are normal. Palpations: Abdomen is soft. Musculoskeletal: General: Normal range of motion. Cervical back: Normal range of motion and neck supple. Skin: General: Skin is warm and dry. Neurological: General: No focal deficit present. Mental Status: She is alert and oriented to person, place, and time. Mental status is at baseline. Cranial Nerves: Cranial nerves 2-12 are intact. Deep Tendon Reflexes: Babinski sign present on the right side. Babinski sign present on the left side. Reflex Scores: Tricep reflexes are 2+ on the right side and 2+ on the left side. Bicep reflexes are 2+ on the right side and 2+ on the left side. Brachioradialis reflexes are 2+ on the right side and 2+ on the left side. Patellar reflexes are 3+ on the right side and 3+ on the left side. Achilles reflexes are 3+ on the right side and 3+ on the left side. Comments: Good leg strength, bilaterally. Right foot flexor weakness. Psychiatric: Attention and Perception: Attention normal. Mood and Affect: Mood normal. Speech: Speech normal. Behavior: Behavior normal. Behavior is cooperative. Thought Content: Thought content normal. Cognition and Memory: Cognition normal. Judgment: Judgment normal. Impression: Diagnosis Plan 1. Familial spastic paraparesis (CMS/HCC) ([facility]) Plan: 1. 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 At today's clinic visit [facility] patient will receive phone intrathecal injection at the L4-L5 level with 50 mcg of preservative-free baclofen. Patient will be evaluated by physical therapy prior to injection 2 hours after the injection. Finally 4 hours after the injection. If patient have a significant improvement of his spasticity in both lower extremities we will consider a positive intrathecal baclofen trial. 2. Patient baclofen was discontinued 24 hours prior to procedure. Currently patient is not taking any anticoagulants. NAVI TELLEZ MD [employer] Phone: 01-13-2023 History and physical note Department of Neurological Sciences H&P CHIEF COMPLAINT: Chief Complaint Patient presents with New Patient Hereditary Spastic Paraparesis Reason for Consult: Discuss possible baclofen pump trial HISTORY OF PRESENT ILLNESS: The patient is a 47 y.o. female who presents with complaint of Hereditary spastic paraplegia. Patient presents alone for her visit. She ambulates with a cane. She states her biggest issue is her hamstrings do not want to relax. Patient range of motion of her hips significantly decreased secondary to spasticity of her lower extremity muscles. She is a still quite functional. She tried to walk with a cane and she tells me that she rarely falls. In the past patient was complaining of severe spasms in both lower extremities. Patient was started on baclofen 20 mg p.o. 3 times daily and she is doing much better. She is still have frequent spasms but not as severe as before. Patient complaining of tiredness and sleepiness with baclofen. Today patient is referred for evaluation of possible intrathecal baclofen trial. Patient denies any weakness with baclofen. Patient has a pain strong family history of familial spastic paraparesis. Her father, her father 2 uncles and in 2 cousins have a spastic paraparesis.. Patient denied any spasticity in cranial nerves or upper extremity. --She is positive for hypertension. She is currently prescribed lisinopril 2.5 mg for management. --There is family history of Alzheimer's disease and anxiety disorder. --She is a former cigarette smoker. She drinks alcohol socially. She drinks caffeine daily. Past Medical History: Medical History Past Medical History: Diagnosis Date Difficulty walking 2015 Weakness of limb 2015 Past Surgical History: Surgical History History reviewed. No pertinent surgical history. Medications: Current Medications Current Outpatient Medications Medication Sig Dispense Refill baclofen (Lioresal) 20 MG tablet Take 1 tablet by mouth 3 times daily. gabapentin (Neurontin) 300 MG capsule Take 300 mg by mouth 3 times daily. lisinopril 2.5 MG tablet Take 2.5 mg by mouth daily. No current facility-administered medications for this visit. Allergies: Patient has no known allergies. Social History: Social History Socioeconomic History Marital status: Spouse name: Not on file Number of children: Not on file Years of education: Not on file Highest education level: Not on file Occupational History Not on file Tobacco Use Smoking status: Former Packs/day: 1.00 Years: 30.00 Pack years: 30.00 Types: Cigarettes Smokeless tobacco: Never Vaping Use Vaping Use: Never used Substance and Sexual Activity Alcohol use: Yes Comment: Social drinker, usually if out to dinner or an event Drug use: Never Sexual activity: Yes Partners: Male control/protection: Other Comment: Had tubal in 2005, hysterectomy 10/25/22 Other Topics Concern Not on file Social History Narrative Not on file Social Determinants of Health Financial Resource Strain: Not on file Food Insecurity: Not on file Transportation Needs: Not on file Physical Activity: Not on file Stress: Not on file Social Connections: Not on file Intimate Partner Violence: Not on file Housing Stability: Not on file Family History: Family History Family History Problem Relation Name Age of Onset Alzheimer's disease Mother Margo Calle Anxiety disorder Mother Margo Calle REVIEW OF SYSTEMS: Review of Systems Constitutional: Negative. Negative for diaphoresis, fatigue and fever. HENT: Negative. Eyes: Negative. Respiratory: Negative. Negative for shortness of breath. Cardiovascular: Negative. Negative for chest pain and palpitations. Gastrointestinal: Negative. Negative for abdominal pain, nausea and vomiting. Endocrine: Negative. Genitourinary: Negative. Musculoskeletal: Positive for back pain and myalgias. Negative for neck pain. Skin: Negative. Allergic/Immunologic: Negative. Neurological: Positive for weakness. Negative for dizziness, syncope, light-headedness and headaches. Hematological: Negative. Psychiatric/Behavioral: Negative. Negative for confusion. PHYSICAL EXAM: Vitals: BP 119/84 (BP Location: Right arm) Pulse 78 Temp 36.8 C (98.2 F) (Infrared) Ht 5' 1 (1.549 m) Wt 126 lb (57.2 kg) BMI 23.81 kg/m Physical Exam Constitutional: Appearance: Normal appearance. HENT: Head: Normocephalic and atraumatic. Nose: Nose normal. Mouth/Throat: Mouth: Mucous membranes are moist. Pharynx: Oropharynx is clear. Eyes: General: Vision grossly intact. Gaze aligned appropriately. Extraocular Movements: Extraocular movements intact. Conjunctiva/sclera: Conjunctivae normal. Pupils: Pupils are equal, round, and reactive to light. Neck: Trachea: Trachea and phonation normal. Cardiovascular: Rate and Rhythm: Normal rate and regular rhythm. Pulses: Normal pulses. Heart sounds: Normal heart sounds. Pulmonary: Effort: Pulmonary effort is normal. Breath sounds: Normal breath sounds. Abdominal: General: Abdomen is flat. Bowel sounds are normal. Palpations: Abdomen is soft. Musculoskeletal: General: Normal range of motion. Cervical back: Normal range of motion and neck supple. Skin: General: Skin is warm and dry. Neurological: General: No focal deficit present. Mental Status: She is alert and oriented to person, place, and time. Mental status is at baseline. Cranial Nerves: Cranial nerves 2-12 are intact. Deep Tendon Reflexes: Babinski sign present on the right side. Babinski sign present on the left side. Reflex Scores: Tricep reflexes are 2+ on the right side and 2+ on the left side. Bicep reflexes are 2+ on the right side and 2+ on the left side. Brachioradialis reflexes are 2+ on the right side and 2+ on the left side. Patellar reflexes are 3+ on the right side and 3+ on the left side. Achilles reflexes are 3+ on the right side and 3+ on the left side. Comments: Good leg strength, bilaterally. Right foot flexor weakness. Psychiatric: Attention and Perception: Attention normal. Mood and Affect: Mood normal. Speech: Speech normal. Behavior: Behavior normal. Behavior is cooperative. Thought Content: Thought content normal. Cognition and Memory: Cognition normal. Judgment: Judgment normal. Impression: Diagnosis Plan 1. Familial spastic paraparesis (CMS/HCC) ([facility]) Plan: 1. 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 At today's clinic visit [facility] patient will receive phone intrathecal injection at the L4-L5 level with 50 mcg of preservative-free baclofen. Patient will be evaluated by physical therapy prior to injection 2 hours after the injection. Finally 4 hours after the injection. If patient have a significant improvement of his spasticity in both lower extremities we will consider a positive intrathecal baclofen trial. 2. Patient baclofen was discontinued 24 hours prior to procedure. Currently patient is not taking any anticoagulants. NAVI TELLEZ MD documented in this encounter [facility] 12-23-2022 Hospital Discharg e instructions Patient Education 12/23/2022 10:40:09 Colon Polyps Colon Polyps Polyps are tissue growths inside the body. Polyps can grow in many places, including the large intestine (colon). A polyp may be a round bump or a mushroom-shaped growth. You could have one polyp or several. Most colon polyps are noncancerous (benign). However, some colon polyps can become cancerous over time. Finding and removing the polyps early can help prevent this. What are the causes? The exact cause of colon polyps is not known. What increases the risk? You are more likely to develop this condition if you: Have a family history of colon cancer or colon polyps. Are older than 50 or older than 45 if you are . Have inflammatory bowel disease, such as ulcerative colitis or Crohn's disease. Have certain hereditary conditions, such as: ?Familial adenomatous polyposis. ?Montes syndrome. ?Turcot syndrome. ?Peutz Jeghers syndrome. Are overweight. Smoke cigarettes. Do not get enough exercise. Drink too much alcohol. Eat a diet that is high in fat and red meat and low in fiber. Had childhood cancer that was treated with abdominal radiation. What are the signs or symptoms? Most polyps do not cause symptoms. If you have symptoms, they may include: Blood coming from your rectum when having a bowel movement. Blood in your stool. The stool may look dark red or black. Abdominal pain. A change in bowel habits, such as constipation or diarrhea. How is this diagnosed? This condition is diagnosed with a colonoscopy. This is a procedure in which a lighted, flexible scope is inserted into the anus and then passed into the colon to examine the area. Polyps are sometimes found when a colonoscopy is done as part of routine cancer screening tests. How is this treated? Treatment for this condition involves removing any polyps that are found. Most polyps can be removed during a colonoscopy. Those polyps will then be tested for cancer. Additional treatment may be needed depending on the results of testing. Follow these instructions at home: Lifestyle Maintain a healthy weight, or lose weight if recommended by your health care provider. Exercise every day or as told by your health care provider. Do not use any products that contain nicotine or tobacco, such as cigarettes and e-cigarettes. If you need help quitting, ask your health care provider. If you drink alcohol, limit how much you have: ?0 1 drink a day for women. ? 0 2 drinks a day for men. Be aware of how much alcohol is in your drink. In the [place] one drink equals one 12 oz bottle of beer (355 mL), one 5 oz glass of wine (148 mL), or one 1 oz shot of hard liquor (44 mL). Eating and drinking Eat foods that are high in fiber, such as fruits, vegetables, and whole grains. Eat foods that are high in calcium and vitamin D, such as milk, cheese, yogurt, eggs, liver, fish, and broccoli. Limit foods that are high in fat, such as fried foods and desserts. Limit the amount of red meat and processed meat you eat, such as hot dogs, sausage, cueto, and lunch meats. General instructions Keep all follow-up visits as told by your health care provider. This is important. ?This includes having regularly scheduled colonoscopies. ?Talk to your health care provider about when you need a colonoscopy. Contact a health care provider if: You have new or worsening bleeding during a bowel movement. You have new or increased blood in your stool. You have a change in bowel habits. You lose weight for no known reason. Summary Polyps are tissue growths inside the body. Polyps can grow in many places, including the colon. Most colon polyps are noncancerous (benign), but some can become cancerous over time. This condition is diagnosed with a colonoscopy. Treatment for this condition involves removing any polyps that are found. Most polyps can be removed during a colonoscopy. This information is not intended to replace advice given to you by your health care provider. Make sure you discuss any questions you have with your health care provider. Document Released: 12/29/2004 Document Revised: 07/20/2018 Document Reviewed: 07/20/2018 [employer] Patient Education 2020 [employer]. 12/23/2022 10:40:01 Monitored Anesthesia Care, Care After Monitored Anesthesia Care, Care After These instructions provide you with information about caring for yourself after your procedure. Your health care provider may also give you more specific instructions. Your treatment has been planned according to current medical practices, but problems sometimes occur. Call your health care provider if you have any problems or questions after your procedure. What can I expect after the procedure? After your procedure, you may: Feel sleepy for several hours. Feel clumsy and have poor balance for several hours. Feel forgetful about what happened after the procedure. Have poor judgment for several hours. Feel nauseous or vomit. Have a sore throat if you had a breathing tube during the procedure. Follow these instructions at home: For at least 24 hours after the procedure: Have a responsible adult stay with you. It is important to have someone help care for you until you are awake and alert. Rest as needed. Do not: ?Participate in activities in which you could fall or become injured. ?Drive. ?Use heavy machinery. ?Drink alcohol. ?Take sleeping pills or medicines that cause drowsiness. ?Make important decisions or sign legal documents. ?Take care of children on your own. Eating and drinking Follow the diet that is recommended by your health care provider. If you vomit, drink water, juice, or soup when you can drink without vomiting. Make sure you have little or no nausea before eating solid foods. General instructions Take qudi-qkj-lvwpzct and prescription medicines only as told by your health care provider. If you have sleep apnea, surgery and certain medicines can increase your risk for breathing problems. Follow instructions from your health care provider about wearing your sleep device: ?Anytime you are sleeping, including during daytime naps. ?While taking prescription pain medicines, sleeping medicines, or medicines that make you drowsy. If you smoke, do not smoke without supervision. Keep all follow-up visits as told by your health care provider. This is important. Contact a health care provider if: You keep feeling nauseous or you keep vomiting. You feel light-headed. You develop a rash. You have a fever. Get help right away if: You have trouble breathing. Summary For several hours after your procedure, you may feel sleepy and have poor judgment. Have a responsible adult stay with you for at least 24 hours or until you are awake and alert. This information is not intended to replace advice given to you by your health care provider. Make sure you discuss any questions you have with your health care provider. Document Released: 07/25/2016 Document Revised: 07/03/2018 Document Reviewed: 07/25/2016 [employer] Patient Education 2020 [employer]. 12/23/2022 10:39:59 Colonoscopy, Adult, Care After Colonoscopy, Adult, Care After This sheet gives you information about how to care for yourself after your procedure. Your health care provider may also give you more specific instructions. If you have problems or questions, contact your health care provider. What can I expect after the procedure? After the procedure, it is common to have: A small amount of blood in your stool for 24 hours after the procedure. Some gas. Mild abdominal cramping or bloating. Follow these instructions at home: General instructions For the first 24 hours after the procedure: ?Do not drive or use machinery. ?Do not sign important documents. ?Do not drink alcohol. ?Do your regular daily activities at a slower pace than normal. ?Eat soft, efiv-ww-kztdty foods. Take dbbg-tei-dcgqocp or prescription medicines only as told by your health care provider. Relieving cramping and bloating Try walking around when you have cramps or feel bloated. Apply heat to your abdomen as told by your health care provider. Use a heat source that your health care provider recommends, such as a moist heat pack or a heating pad. ?Place a towel between your skin and the heat source. ?Leave the heat on for 20 30 minutes. ?Remove the heat if your skin turns bright red. This is especially important if you are unable to feel pain, heat, or cold. You may have a greater risk of getting burned. Eating and drinking Drink enough fluid to keep your urine pale yellow. Resume your normal diet as instructed by your health care provider. Avoid heavy or fried foods that are hard to digest. Avoid drinking alcohol for as long as instructed by your health care provider. Contact a health care provider if: You have blood in your stool 2 3 days after the procedure. Get help right away if: You have more than a small spotting of blood in your stool. You pass large blood clots in your stool. Your abdomen is swollen. You have nausea or vomiting. You have a fever. You have increasing abdominal pain that is not relieved with medicine. Summary After the procedure, it is common to have a small amount of blood in your stool. You may also have mild abdominal cramping and bloating. For the first 24 hours after the procedure, do not drive or use machinery, sign important documents, or drink alcohol. Contact your health care provider if you have a lot of blood in your stool, nausea or vomiting, a fever, or increased abdominal pain. This information is not intended to replace advice given to you by your health care provider. Make sure you discuss any questions you have with your health care provider. Document Released: 11/16/2004 Document Revised: 01/25/2018 Document Reviewed: 06/15/2016 [employer] Patient Education 2020 [employer]. Follow Up Care 12/09/2022 13:16:16 With:PRANAV BETH MD, Surgery Address: [address] [place] [address] [phone] When:Within 2 Year(s) Comments:Repeat colonoscopy in 2 years [facility] 12-23-2022 Note Discharge Instructions Thank you for allowing [facility] to assist you with your healthcare needs. The following is important discharge information regarding your hospital visit. Your Care Team MYRON ALICEA DO What to do next Scheduled Follow-Up Appointments Appointment Type [facility] 09:30 AM MYRON KRISHNAMURTHY DO [address] [phone] Follow Up Appointments Follow Up with PRANAV BETH MD, Surgery When In 2 years Why: Repeat colonoscopy in 2 years Where: [address] [place] [phone] Allergies NKA Medications Please ask your primary doctor or pharmacist before taking any other medication not listed, including over the counter drugs, herbal medications, vitamins and or supplements as they may interact with your home medications. What How Much When Instructions Last Dose Unchanged baclofen (baclofen 20 mg oral tablet) TAKE 1 TABLET 3 TIMES A DAY BY ORAL ROUTE. Unchanged difluprednate ophthalmic (difluprednate 0.05% ophthalmic emulsion) 1 Drops Right eye Two (2) times a day Unchanged dorzolamide-timolol ophthalmic (dorzolamide-timolol 2.23%-0.68% (2%-0.5% base) ophthalmic solution) 1 Drops Right eye Two (2) times a day Unchanged gabapentin (gabapentin 100 mg oral capsule) 1 cap by mouth Three (3) times a day Unchanged varenicline (Chantix Starter Pack 0.5 mg-1 mg oral tablet) 1 tab(s) by mouth Two (2) times a day Please take this list to your next doctor s visit. Bring all medications you take, including over the counter medications, herbals and other supplements with you to your doctor s visit. Patients and families are reminded to discard old lists and to update any records with all medication providers or retail pharmacies. Education Materials Colon Polyps Polyps are tissue growths inside the body. Polyps can grow in many places, including the large intestine (colon). A polyp may be a round bump or a mushroom-shaped growth. You could have one polyp or several. Most colon polyps are noncancerous (benign). However, some colon polyps can become cancerous over time. Finding and removing the polyps early can help prevent this. What are the causes? The exact cause of colon polyps is not known. What increases the risk? You are more likely to develop this condition if you: Have a family history of colon cancer or colon polyps. Are older than 50 or older than 45 if you are . Have inflammatory bowel disease, such as ulcerative colitis or Crohn's disease. Have certain hereditary conditions, such as: ? Familial adenomatous polyposis. ? Montes syndrome. ? Turcot syndrome. ? Peutz Jeghers syndrome. Are overweight. Smoke cigarettes. Do not get enough exercise. Drink too much alcohol. Eat a diet that is high in fat and red meat and low in fiber. Had childhood cancer that was treated with abdominal radiation. What are the signs or symptoms? Most polyps do not cause symptoms. If you have symptoms, they may include: Blood coming from your rectum when having a bowel movement. Blood in your stool. The stool may look dark red or black. Abdominal pain. A change in bowel habits, such as constipation or diarrhea. How is this diagnosed? This condition is diagnosed with a colonoscopy. This is a procedure in which a lighted, flexible scope is inserted into the anus and then passed into the colon to examine the area. Polyps are sometimes found when a colonoscopy is done as part of routine cancer screening tests. How is this treated? Treatment for this condition involves removing any polyps that are found. Most polyps can be removed during a colonoscopy. Those polyps will then be tested for cancer. Additional treatment may be needed depending on the results of testing. Follow these instructions at home: Lifestyle Maintain a healthy weight, or lose weight if recommended by your health care provider. Exercise every day or as told by your health care provider. Do not use any products that contain nicotine or tobacco, such as cigarettes and e-cigarettes. If you need help quitting, ask your health care provider. If you drink alcohol, limit how much you have: ? 0 1 drink a day for women. ? 0 2 drinks a day for men. Be aware of how much alcohol is in your drink. In the [place] one drink equals one 12 oz bottle of beer (355 mL), one 5 oz glass of wine (148 mL), or one 1 oz shot of hard liquor (44 mL). Eating and drinking Eat foods that are high in fiber, such as fruits, vegetables, and whole grains. Eat foods that are high in calcium and vitamin D, such as milk, cheese, yogurt, eggs, liver, fish, and broccoli. Limit foods that are high in fat, such as fried foods and desserts. Limit the amount of red meat and processed meat you eat, such as hot dogs, sausage, cueto, and lunch meats. General instructions Keep all follow-up visits as told by your health care provider. This is important. ? This includes having regularly scheduled colonoscopies. ? Talk to your health care provider about when you need a colonoscopy. Contact a health care provider if: You have new or worsening bleeding during a bowel movement. You have new or increased blood in your stool. You have a change in bowel habits. You lose weight for no known reason. Summary Polyps are tissue growths inside the body. Polyps can grow in many places, including the colon. Most colon polyps are noncancerous (benign), but some can become cancerous over time. This condition is diagnosed with a colonoscopy. Treatment for this condition involves removing any polyps that are found. Most polyps can be removed during a colonoscopy. This information is not intended to replace advice given to you by your health care provider. Make sure you discuss any questions you have with your health care provider. Document Released: 12/29/2004 Document Revised: 07/20/2018 Document Reviewed: 07/20/2018 [employer] Patient Education 2020 [employer]. Monitored Anesthesia Care, Care After These instructions provide you with information about caring for yourself after your procedure. Your health care provider may also give you more specific instructions. Your treatment has been planned according to current medical practices, but problems sometimes occur. Call your health care provider if you have any problems or questions after your procedure. What can I expect after the procedure? After your procedure, you may: Feel sleepy for several hours. Feel clumsy and have poor balance for several hours. Feel forgetful about what happened after the procedure. Have poor judgment for several hours. Feel nauseous or vomit. Have a sore throat if you had a breathing tube during the procedure. Follow these instructions at home: For at least 24 hours after the procedure: Have a responsible adult stay with you. It is important to have someone help care for you until you are awake and alert. Rest as needed. Do not: ? Participate in activities in which you could fall or become injured. ? Drive. ? Use heavy machinery. ? Drink alcohol. ? Take sleeping pills or medicines that cause drowsiness. ? Make important decisions or sign legal documents. ? Take care of children on your own. Eating and drinking Follow the diet that is recommended by your health care provider. If you vomit, drink water, juice, or soup when you can drink without vomiting. Make sure you have little or no nausea before eating solid foods. General instructions Take ntbv-rrs-foljpfd and prescription medicines only as told by your health care provider. If you have sleep apnea, surgery and certain medicines can increase your risk for breathing problems. Follow instructions from your health care provider about wearing your sleep device: ? Anytime you are sleeping, including during daytime naps. ? While taking prescription pain medicines, sleeping medicines, or medicines that make you drowsy. If you smoke, do not smoke without supervision. Keep all follow-up visits as told by your health care provider. This is important. Contact a health care provider if: You keep feeling nauseous or you keep vomiting. You feel light-headed. You develop a rash. You have a fever. Get help right away if: You have trouble breathing. Summary For several hours after your procedure, you may feel sleepy and have poor judgment. Have a responsible adult stay with you for at least 24 hours or until you are awake and alert. This information is not intended to replace advice given to you by your health care provider. Make sure you discuss any questions you have with your health care provider. Document Released: 07/25/2016 Document Revised: 07/03/2018 Document Reviewed: 07/25/2016 [employer] Patient Education 2020 [employer]. Colonoscopy, Adult, Care After This sheet gives you information about how to care for yourself after your procedure. Your health care provider may also give you more specific instructions. If you have problems or questions, contact your health care provider. What can I expect after the procedure? After the procedure, it is common to have: A small amount of blood in your stool for 24 hours after the procedure. Some gas. Mild abdominal cramping or bloating. Follow these instructions at home: General instructions For the first 24 hours after the procedure: ? Do not drive or use machinery. ? Do not sign important documents. ? Do not drink alcohol. ? Do your regular daily activities at a slower pace than normal. ? Eat soft, rzpm-pn-nnkmvd foods. Take pibd-qme-dehaino or prescription medicines only as told by your health care provider. Relieving cramping and bloating Try walking around when you have cramps or feel bloated. Apply heat to your abdomen as told by your health care provider. Use a heat source that your health care provider recommends, such as a moist heat pack or a heating pad. ? Place a towel between your skin and the heat source. ? Leave the heat on for 20 30 minutes. ? Remove the heat if your skin turns bright red. This is especially important if you are unable to feel pain, heat, or cold. You may have a greater risk of getting burned. Eating and drinking Drink enough fluid to keep your urine pale yellow. Resume your normal diet as instructed by your health care provider. Avoid heavy or fried foods that are hard to digest. Avoid drinking alcohol for as long as instructed by your health care provider. Contact a health care provider if: You have blood in your stool 2 3 days after the procedure. Get help right away if: You have more than a small spotting of blood in your stool. You pass large blood clots in your stool. Your abdomen is swollen. You have nausea or vomiting. You have a fever. You have increasing abdominal pain that is not relieved with medicine. Summary After the procedure, it is common to have a small amount of blood in your stool. You may also have mild abdominal cramping and bloating. For the first 24 hours after the procedure, do not drive or use machinery, sign important documents, or drink alcohol. Contact your health care provider if you have a lot of blood in your stool, nausea or vomiting, a fever, or increased abdominal pain. This information is not intended to replace advice given to you by your health care provider. Make sure you discuss any questions you have with your health care provider. Document Released: 11/16/2004 Document Revised: 01/25/2018 Document Reviewed: 06/15/2016 [employer] Patient Education 2020 [employer]. Additional Information VACCINATE! IT SAVES LIVES! Members of the community who have not yet received the COVID-19 vaccine and would like to receive it can visit one of [facility] vaccine clinics. There are many vaccine clinic locations within the [facility]. For locations and available times, please visit https://gettheshot.coronavirus.o hio.gov/. It is important to note that some COVID mobile vaccine clinics are held outdoors and may be canceled in rainy or stormy conditions. To learn more about pediatric vaccinations (ages 5-11), we invite you to visit the [facility] webpage. [email or web address].[email or web address].org/p ages/1294-Fezye-Tmivwjltnzo-Freq joakzh-[email or web address]-Szdxznfds.html To learn more about the COVID-19 vaccine, we invite you to visit the CDC website for a list of frequently asked questions.https://www.cdc.gov/co ronavirus/2019-ncov/vaccines/faq .html [facility] Patient Portal Access Instructions: Stay connected with your healthcare team and access your personal medical information anytime with the [facility] Patient Portal. Please follow the directions below to create your [facility] account: 1.Access the email account you provided upon registration to the hospital/physician office.2.Look for an invitation email from [facility].3.Open the email and access the invitation link: Accept Invitation to [facility].4.Fill in the required jones to create your account. To access your account, visit [email or web address]. Click the blue button labeled Access Patient Portal and then log in with the username and password that you created in the steps above. You will be able to view your test results, lab results, a summary of your visits, upcoming appointments and more. There is also a convenient messaging option where you can send secure messages to your provider. In addition, you will have the ability to download any documents or summaries to your computer and/or send the information securely to a physician. Remember that your healthcare information is confidential, so carefully consider who you will allow to register on the [facility] Patient Portal for access to your information. You can also access the [facility] Patient Portal on the [facility] johnny. Simply click on Patient Portal and then log into your account. If you would like to receive a full copy of your medical records, please contact the [facility] Medical Records Department by calling [phone], Tuesday through Tuesday between 8 a.m. and 4:30 p.m. HOW TO SAFELY DISPOSE OF PRESCRIPTION MEDICATIONS Please use one of the following methods to safely dispose of your unused medications. 1.Use a drug disposal kit: the drug disposal pouch allows you to safely discard your old and unused drugs. Ask your nurse to give you one when you are discharged.2.Visit a local take-back location: Many local pharmacies and police departments have programs that collect old and unwanted prescription drugs. Call your local pharmacy or go to http://[employer] Apps.Dealer Ignition/0W3Pj3t to find one close to you.3.Make use of household items: Use cat litter or old coffee grounds to dispose medications if other options are not available. Mix your drugs with these household products, seal them in an airtight container and throw it into the garbage. Call [facility]: [phone] to be sure your drugs can be disposed of in this way. Some medicines may require a different approach.4.Never flush your medications down the toilet. IF YOU HAVE BEEN PRESCRIBED AN OPIOID FOR PAIN If you have been prescribed an opioid (such as hydrocodone, oxycodone or morphine), it is critical to understand the possible side effects and risks of opioid pain medications. Even when taken as directed, opioids can have several side effects including: Tolerance, meaning you might need to take more of a medication for the same pain relief. Nausea, vomiting and/or constipation. Sleepiness, dizziness, dry mouth, confusion, depression or itching. Physical dependence, meaning you have withdrawal symptoms when a medication is stopped, can develop within a few days. KNOW YOUR RESPONSIBILITIES It is important to know exactly how much and how often to take the opioid pain medications you are prescribed. Never take opioids in higher amounts or more often than prescribed. Do not combine opioids with alcohol or other drugs that cause drowsiness, such as benzodiazepines, also known as benzos, including diazepam and alprazolam, muscle relaxants or sleep aids. Never sell or share prescription opioids. This is illegal. Store opioids in a secure place and out of reach of others (including children, family, friends and visitors). The last page of this document has been signed and retained as a CHART COPY. Signatures Patient Education Materials Colon Polyps Monitored Anesthesia Care, Care After Colonoscopy, Adult, Care After Medication Leaflets My discharge plan and instructions have been reviewed and explained to me and I,BRITTNEE HOLLAND understand my current condition and have read and understand these discharge instructions. I have received a written copy of the plan/instructions. If I have questions, I am aware that I should contact my doctor. 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: Date/Time: Relationship to Patient: Witness Name/Signature: Date/Time: [facility] 12-23-2022 Anesthesiology Consult note Patient: BRITTNEE HOLLAND Age: 47 years Sex: Female : 1975 Associated Diagnoses: None Author: ANDREW BARAJAS APRN-RADHA Assessment Postanesthesia assessment Vitals: Vital signs from flowsheet : Vital Signs 12/23/2022 9:19 EDT Temperature Temporal Artery 37.1 DegC Apical Heart Rate 89 bpm Respiratory Rate 18 br/min Systolic Blood Pressure Non-Invasive 131 mmHg Diastolic Blood Pressure Non-Invasive 96 mmHg HI 12/22/2022 9:58 EDT Systolic Blood Pressure Non-Invasive 120 mmHg Diastolic Blood Pressure Non-Invasive 102 mmHg >HHI Blood Pressure Method Manual Blood Pressure Location Left arm Blood Pressure Cuff Size Medium , Measurements from flowsheet . Mental status: alert & oriented x 4. Respiratory function: respirations are non-labored. Respiratory support: none. CV function: Normal rate. Cardiovascular support: none. Pain. Nausea status: see nursing documentation of medications. Postoperative hydration status: within normal limits. Digitally Signed by ANDREW BARAJAS on 12/23/2022 10:32 AM [facility] 12-23-2022 Anesthesiology Consult note Patient: BRITTNEE HOLLAND Age: 47 years Sex: Female : 1975 Associated Diagnoses: None Author: ANDREW BARAJAS Preoperative Information Time of last solid food intake: 12/23/2022 00:00:00 Time of last clear liquid intake: 12/23/2022 07:15:00 Anesthesia history Patient's history: negative. Family's history: negative. Health Status Allergies: Allergic Reactions (Selected) NKA, Allergies (1) ActiveReaction NKANone Documented Current medications: (Selected) Inpatient Medications Ordered LR 1,000 mL: 50 mL/hr, Intravenous Prescriptions Prescribed Chantix Starter Pack 0.5 mg-1 mg oral tablet: 1 tab(s), Oral, BID, 1 kit(s), 0 Refill(s) Documented Medications Documented baclofen 20 mg oral tablet: TAKE 1 TABLET 3 TIMES A DAY BY ORAL ROUTE. 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 Absence of cervix (346227837): Resolved. Family History: Breast cancer Maternal Aunt Hypertension Father Heart disease Father Pancreatic cancer Paternal Aunt Bipolar disorder Mother Thyroid cancer Maternal Aunt Depression Mother Schizophrenia Mother HTN - Hypertension Father Heart attack 15-Oct-2015 02:33:12<$> Father Spastic paralysis 15-Oct-2015 02:35:22<$> Father Cervical cancer Mother Lung cancer Paternal Aunt Procedure history: Hysterectomy ([id number]) on 10/25/2022 at 47 Years. Comments: 10/25/2022 17:05 Samra Weinstein RN LAPAROSCOPIC ASSISTED VAGINAL HYSTERECTOMY WITH BILATERAL SALPINGECTOMY Hysteroscopy with endometrial ablation ([id number]) on 01/09/2016 at 40 Years. Gallbladder ([id number]). Comments: 12/30/2015 8:52 VINCENT KNIGHT REMOVED LAPAOSCOPY 1999 Tubal ligation ([id number]). 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 3-4 servings daily Sexual 12/23/2022 Sexually active: Yes Self described orientation: Straight or heterosexual History of sexual abuse: No . Physical Examination Vital Signs 12/23/2022 9:19 EDT Temperature Temporal Artery 37.1 DegC Apical Heart Rate 89 bpm Respiratory Rate 18 br/min Systolic Blood Pressure Non-Invasive 131 mmHg Diastolic Blood Pressure Non-Invasive 96 mmHg HI 12/22/2022 9:58 EDT Systolic Blood Pressure Non-Invasive 120 mmHg Diastolic Blood Pressure Non-Invasive 102 mmHg >HHI Blood Pressure Method Manual Blood Pressure Location Left arm Blood Pressure Cuff Size Medium Vital Signs(last 24 hrs) Last Charted Resp Rate 18 br/min (DEC 23 09:19) DDV963 mmHg (DEC 23 09:19) DBPH 96mmHg (DEC 23 09:) BMI23.64 (DEC 23 09:) Measurements from flowsheet : Measurements 12/23/2022 9:19 EDT Height 155 cm Admission Weight 56.8 kg Weight Method Stated [place] Body Weight 47.85 kg BSA Admission 1.55 Body Mass Index 23.64 kg/m2 12/22/2022 9:58 EDT Height 155 cm Height in inches 61 inch(es) Admission Weight 56.8 kg Weight Lbs 125 lb Weight Method Actual [place] Body Weight 47.85 kg BSA Admission 1.55 Body Mass Index 23.64 kg/m2 Pain assessment: Pain Assessment 12/23/2022 9:19 EDT Primary Pain Location Lower leg Primary Pain Laterality Bilateral Primary Pain Intensity 8 Primary Pain Time Pattern chronic Primary Pain Quality Aching, Cramping Primary Pain Nonverbal Response Appears restful Pain Scale Type 0-10 Pain scale . General: Alert and oriented. Airway: Normal temporomandibular joint mobility, Normal mouth, Normal neck range of motion. Mallampati classification: II (soft palate, fauces, uvula visible). Dentition Evaluation: Denies loose/chipped teeth. Respiratory: Respirations are non-labored. Cardiovascular: Normal rate. Neurologic: Alert, Oriented. Review / Management Results review: No qualifying data available , Lab results 12/23/2022 9:54 EDT SN - GCD - ASA Class 3 12/23/2022 9:47 EDT Hand Right 12/23/2022 22 gauge Peripheral IV Activity: Discontinued Peripheral IV Removal: Adhesive bandage Peripheral IV Removal Reason: Site change Hand Left 12/23/2022 22 gauge Peripheral IV Activity: Insert new site Peripheral IV Dressing Condition: Clean, Dry, Intact Peripheral IV Dressing Activity: Applied, Transparent dressing Peripheral IV Line Status/Patency: Flushes easily Peripheral IV Line Care: Secured with tape Peripheral IV Site Condition: No complications Peripheral IV Number of Attempts: 1 12/23/2022 9:29 EDT Hand Right 12/23/2022 22 gauge Peripheral IV Activity: Insert new site Peripheral IV Dressing Condition: Clean, Dry, Intact Peripheral IV Dressing Activity: Applied, Transparent dressing Peripheral IV Line Status/Patency: Continuous infusion, Good blood return Peripheral IV Site Condition: No complications Peripheral IV Equipment: Extension set Peripheral IV Number of Attempts: 1 12/23/2022 9:24 EDT Urinary Elimination Voiding, no difficulties IV Present Present Anesthesia Extension Set Applied Yes Colon Prep Results Good Patient Dressed In Hospital gown, No undergarments Pre-op Preparation Jewelry removed Bowel Prep Completed Yes Belongings At Bedside Cane, Cell phone, Shirt, Shoes, Shorts, Undergarments Last Fluid Intake 12/23/2022 7:15 Last Food Intake 12/21/2022 18:00 Last Void 12/23/2022 8:00 12/23/2022 9:23 EDT Lactated Ringers Injection Begin Bag 1,000 mL mL 12/23/2022 9:19 EDT Designated Person #1 We May Share PHI DEWEY CARPENTERS [phone] Designated Person #1 Relationship Significant other Designated Person #2 We May Share PHI Louise James [phone] Designated Person #2 Relationship Daughter Privacy Restrictions Requested None Height 155 cm Admission Weight 56.8 kg Weight Method Stated [place] Body Weight 47.85 kg BSA Admission 1.55 Body Mass Index 23.64 kg/m2 Temperature Temporal Artery 37.1 DegC Apical Heart Rate 89 bpm Respiratory Rate 18 br/min Systolic Blood Pressure Non-Invasive 131 mmHg Diastolic Blood Pressure Non-Invasive 96 mmHg HI Primary Pain Location Lower leg Primary Pain Laterality Bilateral Primary Pain Intensity 8 Primary Pain Time Pattern chronic Primary Pain Quality Aching, Cramping Primary Pain Nonverbal Response Appears restful Pain Scale Type 0-10 Pain scale Monitor Alarms On and Limits Checked Heart Rhythm Regular Cardiac Rhythm Sinus rhythm Respirations Unlabored Respiratory Pattern Regular Oxygen Therapy Room air Oxygen Saturation 98 % Abdomen Description Soft, Rounded Bowel Sounds All Quadrants Present Status No, per patient Skin Temperature Warm Skin Description [place], Dry Skin Integrity Intact Skin Moisture General Clammy Neurological Symptoms Patient denies Extremity Movement Equal Characteristics of Speech Clear Level of Consciousness Alert Strength All Extremities Moderate Tone All Extremities Spastic Sensation All Extremities Intact Affect/Behavior Appropriate, Calm, Cooperative Orientation Oriented x 4 Sensory Deficits None Infectious Disease Symptoms Patient states no symptoms Infectious Disease Recent Exposure No Alcohol and Drug Use No Employee of Institutional Living No Health Care Employee No History of Exposure to TB No History of Positive Chest X-Ray for TB No History of Positive TB Skin Test No Homeless No Known Immunosuppression No Recent Immigrant No Resident of Institutional Living No Bloody Sputum No Fatigue No Fever No Loss of Appetite No Night Sweats No Persistent Cough > 3 Weeks No Weight Loss No [place] Motor (2) Moves 4 extremities voluntarily or on command [place] Respirations (2) Spontaneous respiration without support, RR > 10 [place] Blood Pressure (2) BP 20% above or below preanesthetic level [place] Pulse (2) Pulse 20% above or below preanesthetic level [place] Oxygen Saturation (2) 94% or more [place] Level of Consciousness (2) Fully awake [place] III Score 12 Barriers to Learning None evident Teaching Method Explanation, Printed materials Preferred Spoken Language Arabic Preferred Written Language Arabic Information Given by Patient Patient's Current Physicians Patient's Current Physicians Discharge To, Anticipated Home independently Assistive Device Cane Positioning Repositions self Mobility Assistance Level Independent Activity Status ADL Awake, Resting Standard Safety ID band on, Call device within reach, Bed in low position, Wheels locked, Upper/Half-Length side-rails up, Non-Slip footwear Demonstrates Correct Call Light Use Yes Prev Test Positive/Diagnosis w/COVID-19 Yes Previous COVID-19 Positive Date 12/2020 Current Quarantine/Isolated any Illness No Any Contact with Sick Animals/Birds No Traveled Anywhere in Last 30 Days No No Personal Devices, Patient Valuables None Admission Note-Nursing Procedure/Therapy Intake 12/23/2022 9:15 EDT SN - Proc - Anesthesia Type MAC SN - Proc - EBL 0 mL SN - Proc - Actual Procedure COLONOSCOPY 12/23/2022 9:14 EDT Anesthesia Final Record OP Colonoscopy 12/23/2022 9:13 EDT SN - PP - Body Position Lateral Right Side-up Standard Intra-op 12/23/2022 9:12 EDT SN - GCD - Case Level OPD Level 3 12/23/2022 9:11 EDT SN - CAt - Case Attendee SN - CAt - Case Attendee SN - CAt - Case Attendee SN - CAt - Case Attendee SN - CAt - Case Attendee SN - CAt - Case Attendee SN - CAt - Case Attendee SN - CAt - Case Attendee SN - CAt - Role Performed Primary Surgeon SN - CAt - Role Performed Aba Therapist 1 SN - CAt - Role Performed SONOGRAPHY TECHNOLOGIST SN - CAt - Role Performed Scada Operator 12/22/2022 10:25 EDT Gynecology Office Note Specialty Office Visit Note History of Present Illness Documentation History of Present Illness Documentation Impression and Plan Documentation Impression and Plan Documentation Review of Systems Documentation Review of Systems Documentation Physical Examination Documentation Physical Examination Documentation 12/22/2022 9:58 EDT Height 155 cm Height in inches 61 inch(es) Admission Weight 56.8 kg Weight Lbs 125 lb Weight Method Actual [place] Body Weight 47.85 kg BSA Admission 1.55 Body Mass Index 23.64 kg/m2 Systolic Blood Pressure Non-Invasive 120 mmHg Diastolic Blood Pressure Non-Invasive 102 mmHg >HHI Blood Pressure Method Manual Blood Pressure Location Left arm Blood Pressure Cuff Size Medium Date of Last Pap Smear 7 years Status No, per patient Menarche Onset 13 year(s) Menstrual Status Postmenopausal Frequency of Menstruation every month or every other Last Menstrual Period Description Abnormal amount/duration Date of Menses Prior to LMP 08/23/2022 3 Para 3 Chief Complaint Here for post op check, doing well. Having a colonoscopy tomorrow. Dr. Soto took her off BP med, thought it was from her smoking. Quick Intake AMB - Text Ambulatory Quick Intake Amb [facility] [place] [facility] . Assessment and Plan [employer] Anesthesiologists (ASA) physical status classification: Class III. Anesthetic Preoperative Plan Anesthetic technique: MAC. Informed consent: signed by patient. Digitally Signed by ANDREW BARAJAS on 12/23/2022 10:11 AM [facility] History of Presen t illness Narrative Answers submitted by the patient for this visit: Neurological Problem Questionnaire (Submitted on 11/02/2022) Chief Complaint: Neurologic complaint altered mental status: No clumsiness: No focal sensory loss: No focal weakness: Yes loss of balance: Yes memory loss: No near-syncope: No slurred speech: No syncope: No visual change: No weakness: Yes Chronicity: chronic Onset: more than 1 year ago Onset quality: gradually Progression since onset: waxing and waning Focality: lower extremity abdominal pain: No auditory change: No aura: No back pain: Yes bladder incontinence: No bowel incontinence: No chest pain: No confusion: No diaphoresis: No dizziness: No fatigue: No fever: No headaches: No light-headedness: No nausea: No neck pain: No palpitations: No shortness of breath: No vertigo: No vomiting: No Treatments tried: medication Improvement on treatment: mild Department of Neurological Sciences Initial Consult Note 11/03/2022 CHIEF COMPLAINT: Chief Complaint Patient presents with New Patient Hereditary Spastic Paraparesis Reason for Consult: Discuss possible baclofen pump trial HISTORY OF PRESENT ILLNESS: The patient is a 47 y.o. female who presents with complaint of Hereditary spastic paraplegia. Patient presents alone for her visit. She ambulates with a cane. She states her biggest issue is her hamstrings do not want to relax. Patient range of motion of her hips significantly decreased secondary to spasticity of her lower extremity muscles. She is a still quite functional. She tried to walk with a cane and she tells me that she rarely falls. In the past patient was complaining of severe spasms in both lower extremities. Patient was started on baclofen 20 mg p.o. 3 times daily and she is doing much better. She is still have frequent spasms but not as severe as before. Patient complaining of tiredness and sleepiness with baclofen. Today patient is referred for evaluation of possible intrathecal baclofen trial. Patient denies any weakness with baclofen. Patient has a pain strong family history of familial spastic paraparesis. Her father, her father 2 uncles and in 2 cousins have a spastic paraparesis.. Patient denied any spasticity in cranial nerves or upper extremity. --She is positive for hypertension. She is currently prescribed lisinopril 2.5 mg for management. --There is family history of Alzheimer's disease and anxiety disorder. --She is a former cigarette smoker. She drinks alcohol socially. She drinks caffeine daily. Past Medical History: Past Medical History: Diagnosis Date Difficulty walking 2015 Weakness of limb 2015 Past Surgical History: History reviewed. No pertinent surgical history. Medications: Current Outpatient Medications Medication Sig Dispense Refill baclofen (Lioresal) 20 MG tablet Take 1 tablet by mouth 3 times daily. gabapentin (Neurontin) 300 MG capsule Take 300 mg by mouth 3 times daily. lisinopril 2.5 MG tablet Take 2.5 mg by mouth daily. No current facility-administered medications for this visit. Allergies: Patient has no known allergies. Social History: Social History Socioeconomic History Marital status: Spouse name: Not on file Number of children: Not on file Years of education: Not on file Highest education level: Not on file Occupational History Not on file Tobacco Use Smoking status: Former Packs/day: 1.00 Years: 30.00 Pack years: 30.00 Types: Cigarettes Smokeless tobacco: Never Vaping Use Vaping Use: Never used Substance and Sexual Activity Alcohol use: Yes Comment: Social drinker, usually if out to dinner or an event Drug use: Never Sexual activity: Yes Partners: Male control/protection: Other Comment: Had tubal in 2005, hysterectomy 10/25/22 Other Topics Concern Not on file Social History Narrative Not on file Social Determinants of Health Financial Resource Strain: Not on file Food Insecurity: Not on file Transportation Needs: Not on file Physical Activity: Not on file Stress: Not on file Social Connections: Not on file Intimate Partner Violence: Not on file Housing Stability: Not on file Family History: Family History Problem Relation Name Age of Onset Alzheimer's disease Mother Margo Calle Anxiety disorder Mother Margo Calle REVIEW OF SYSTEMS: Review of Systems Constitutional: Negative. Negative for diaphoresis, fatigue and fever. HENT: Negative. Eyes: Negative. Respiratory: Negative. Negative for shortness of breath. Cardiovascular: Negative. Negative for chest pain and palpitations. Gastrointestinal: Negative. Negative for abdominal pain, nausea and vomiting. Endocrine: Negative. Genitourinary: Negative. Musculoskeletal: Positive for back pain and myalgias. Negative for neck pain. Skin: Negative. Allergic/Immunologic: Negative. Neurological: Positive for weakness. Negative for dizziness, syncope, light-headedness and headaches. Hematological: Negative. Psychiatric/Behavioral: Negative. Negative for confusion. PHYSICAL EXAM: Vitals: BP 119/84 (BP Location: Right arm) Pulse 78 Temp 36.8 C (98.2 F) (Infrared) Ht 5' 1 (1.549 m) Wt 126 lb (57.2 kg) BMI 23.81 kg/m Physical Exam Constitutional: Appearance: Normal appearance. HENT: Head: Normocephalic and atraumatic. Nose: Nose normal. Mouth/Throat: Mouth: Mucous membranes are moist. Pharynx: Oropharynx is clear. Eyes: General: Vision grossly intact. Gaze aligned appropriately. Extraocular Movements: Extraocular movements intact. Conjunctiva/sclera: Conjunctivae normal. Pupils: Pupils are equal, round, and reactive to light. Neck: Trachea: Trachea and phonation normal. Cardiovascular: Rate and Rhythm: Normal rate and regular rhythm. Pulses: Normal pulses. Heart sounds: Normal heart sounds. Pulmonary: Effort: Pulmonary effort is normal. Breath sounds: Normal breath sounds. Abdominal: General: Abdomen is flat. Bowel sounds are normal. Palpations: Abdomen is soft. Musculoskeletal: General: Normal range of motion. Cervical back: Normal range of motion and neck supple. Skin: General: Skin is warm and dry. Neurological: General: No focal deficit present. Mental Status: She is alert and oriented to person, place, and time. Mental status is at baseline. Cranial Nerves: Cranial nerves 2-12 are intact. Deep Tendon Reflexes: Babinski sign present on the right side. Babinski sign present on the left side. Reflex Scores: Tricep reflexes are 2+ on the right side and 2+ on the left side. Bicep reflexes are 2+ on the right side and 2+ on the left side. Brachioradialis reflexes are 2+ on the right side and 2+ on the left side. Patellar reflexes are 3+ on the right side and 3+ on the left side. Achilles reflexes are 3+ on the right side and 3+ on the left side. Comments: Good leg strength, bilaterally. Right foot flexor weakness. Psychiatric: Attention and Perception: Attention normal. Mood and Affect: Mood normal. Speech: Speech normal. Behavior: Behavior normal. Behavior is cooperative. Thought Content: Thought content normal. Cognition and Memory: Cognition normal. Judgment: Judgment normal. Impression: Diagnosis Plan 1. Familial spastic paraparesis (CMS/HCC) ([facility]) Plan: 1. Patient appeared to be a good candidate for intrathecal baclofen. Patient has severe spasticity. Good strength in lower extremities and difficulty ambulating secondary to spasms. 2. We are going to schedule patient for an intrathecal baclofen trial at [facility]. We will inject patient with 50 mcg of baclofen intrathecally and she will be evaluated by physical and Occupational Therapy after 2 and 4 hours. Then based on results we will decide whether an outpatient is a good candidate for permanent implantation of an intrathecal pump. Thank you NAVI TELLEZ MD documented in this encounter [facility] 10-20-2022 Note . MICRO - Microbiology PROCEDURE: Urine Culture [*1] SOURCE: Urine, Clean Catch BODY SITE: COLLECTED DATE/TIME: 10/18/2022 10:50 EDT RECEIVED DATE/TIME: 10/18/2022 19:29 EDT START DATE/TIME: 10/18/2022 19:29 EDT FREE TEXT SOURCE: FINAL REPORTS Final Report [] Verified Date/Time/Personnel: 10/20/2022 07:53 EDT >100,000 cfu/ml Escherichia coli PRELIMINARY REPORTS Preliminary Report [] Verified Date/Time/Personnel: 10/19/2022 12:30 EDT >100,000 cfu/ml Escherichia coli GISELLA to follow SUSCEPTIBILITY RESULTS Escherichia coli Antibiotic GISELLA Dilut GISELLA Inter Ampicillin <=8 Susceptible Ampicillin/ <=4/2 Susceptible Sulbactam Aztreonam <=4 Susceptible Cefazolin <=2 Susceptible Ciprofloxacin <=0.25 Susceptible Ertapenem <=0.5 Susceptible Gentamicin <=2 Susceptible Imipenem <=1 Susceptible Levofloxacin <=0.5 Susceptible Meropenem <=1 Susceptible Minocycline <=4 Susceptible Nitrofurantoin <=32 Susceptible Trimethoprim/ <=0.5/9.5 Susceptible Sulfa Performing Locations *1: This test was performed at: [facility], [address] [place] [address], [phone] , [facility]ly [facility] ([place] 08-03-2022 Evaluation + Plan note Diagnostic Tests PendingAngiotensin Converting Enzyme 08/03/22Lysozyme, Serum 08/03/22TB Quantiferon, Incubated 08/03/22[facility] Lab Send out (Blood Specimens) 08/03/22[facility] Lab Send out (Blood Specimens) 08/03/22 [facility] Evaluation + Plan note No data available for this section [facility] Evaluation + Plan note Future Appointments Appointment Date:09/08/2022 01:30:00 PM Scheduled Provider:SIMON SONG MD Location: [facility] 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 [facility] Evaluation + Plan note Future Appointments Appointment Date:09/14/2022 01:30:00 PM Scheduled Provider: Location:[facility] Appointment Type:US Pelvis Non-OB W/Transvaginal Appointment Date:09/14/2022 02:30:00 PM Scheduled Provider: Location:[facility] Appointment Type:MA Mammogram Screening Bilateral w/ [place] Appointment Date:09/22/2022 10:45:00 AM Scheduled Provider:SIMON SONG MD Location: [facility] Appointment Type: OV Appointment Date:09/24/2022 08:30:00 AM Scheduled Provider: Location:[facility] Appointment Type:[facility] ROOFING SUPERINTENDENT Future Scheduled TestsRapid Plasma Reagin Test 09/08/22Complete Blood Count 09/08/22Hepatitis C Antibody IgG 09/08/22HIV 1/2 Ab 09/08/22MA Mammo Screening Bilateral w/ [place] 09/14/22US Pelvis Non-OB W/Transvaginal 09/14/22 [facility] Evaluation + Plan note Future Appointments Appointment Date:09/22/2022 10:45:00 AM Scheduled Provider:SIMON SONG MD Location: [facility] Appointment Type: OV Appointment Date:09/24/2022 08:30:00 AM Scheduled Provider: Location:[facility] Appointment Type:OSM ROOFING SUPERINTENDENT Diagnostic Tests PendingRapid Plasma Reagin Test 09/14/22 Future Scheduled TestsHIV 1/2 Ab 09/08/22 [facility] Evaluation + Plan note Future Appointments Appointment Date:12/24/2022 10:30:00 AM Scheduled Provider:LIZA MARSHALL Location:[facility] Appointment Type:PC OV Appointment Date:03/08/2023 09:30:00 AM Scheduled Provider:MYRON ALICEA DO Location:[facility] Appointment Type:PC OV Future Scheduled TestsHIV 1/2 Ab 09/08/22 [facility] Evaluation + Plan note Future Appointments Appointment Date:12/01/2023 09:00:00 AM Scheduled Provider:MYRON ALICEA DO Location:[facility] Appointment Type:PC OV Pre Op [facility] Evaluation note Diagnosis 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 Discharge instructions No data available for this section [facility] Progress note No data available for this section [facility] Summary Purpose Family History No Family History Records FoundNo Family History Records Found No data available for this section No Family History Records Found No data available for this section No data available for this section No Family History Records FoundNo Family History Records Found Advance Directives No Advanced Directives Records FoundNo Advanced Directives Records FoundNo Advanced Directives Records FoundNo Advanced Directives Records FoundNo Advanced Directives Records Found Additional Source Comments INFORMATION SOURCE (unrecogn ized section and content) DATE CREATED AUTHOR 10/12/2017 [facility] DATE CREATED AUTHOR AUTHOR'S ORGANIZ ATION 11/05/2019 [facility] [place] DATE CREATED AUTHOR AUTHOR'S ORGANIZ ATION 01/22/2023 [facility] DATE CREATED AUTHOR AUTHOR'S ORGANIZ ATION 10/03/2023 [facility] ([place]) DATE CREATED AUTHOR AUTHOR'S ORGANIZ ATION 10/14/2024 [facility] Care Team (unrecognized sect ion and content) Care Team Personnel Name: MYRON ALICEA DO Position: P4 Physician - Primary Care Med Service: Active Provider Member Role: Primary Care Physician Address: Address: [address] [place] [id number] [[email or web address] Care Team Related Persons Name: KENRICK CHEEMA Jessie Address: Home [address] [place], [place] [id number] Address: Temporary [address] [place], [place] [id number] Name: DIANN RALPH Patient Care team informatio n (unrecognized section and content) Newspaper Manager Relationship Specialty Start Date End Date Myron Alicea DO [address] [place] [phone] PCP - General Family Medicine 11/03/22 Newspaper Manager Relationship Specialty Start Date End Date Myron Alicea DO [address] [place] [phone] PCP - General Family Medicine 11/03/22 Reason for Visit (unrecogniz ed section and content) Reason Comments New Patient Hereditary Spastic P araparesis Specialty Diagnoses / Procedures Referred By Contac t Referred To Contact Neurology Diagnoses Hereditary spastic paraplegia (HCC) Procedures MA OFFICE/OUTPATIENT NEW MODERATE MDM 45-59 MINUTES Carlos Lan MD [address] [phone] Navi Tellez MD [address] [place] [address] [place] [address] Referral ID Status Reason Start Date Expiration Date V isits Requested Visits Authorized [id number] Pending Review 09/08/2022 09/08/2023 1 1 Specialty Diagnoses / Procedures Referred By Contac t Referred To Contact Diagnoses Spastic hemiplegia affecting unspecified side (HCC) Spastic hemiplegia affecting unspecified side (HCC) [G81.10] Procedures MA NJX DX/THER SBST INTRLMNR LMBR/SAC W/O IMG GDN BACLOFEN PUMP TRIAL Navi Tellez MD [address] [facility] [place] [address] [facility] [address] [place] [facility] [place] [address] Referral ID Status Reason Start Date Expiration Date Visits Re quested Visits Authorized [id number] 1 1 Scheduled Active and Recently Administ ered Medications (unrecognized section and content) Medication Order 01/11/2023 01/12/2023 01/13/2023 baclofen (Gablofen) intrathecal injection 50 mcg (COMPLETED) 50 mcg, Intrathecal, Once, On Yoana 01/13/23 at 0645, For 1 dose, Preprocedure 0645 (Due)0813 (Give n - Provider: Navi Tellez MD) Continuous Medication Order 01/11/2023 01/12/2023 01/13/2023 sodium chloride 0.9 % infusion 100 mL/hr, IntraVENous, Continuous, Starting on Yoana 01/13/23 at 0715 0715 (Canceled Entry - Provider: Automatic Discharge Provider - Comment: Automatically canceled at discontinue of medication order) PRN Medication Order 01/11/2023 01/12/2023 01/13/2023 lidocaine (Xylocaine) 1 % injection (COMPLETED) As needed, Starting on Yoana 01/13/23 at 0806, Intraprocedure 0806 (Given - Provid er: Navi Tellez MD) FOR RECORDS PERTAINING TO PATIENTS WHO ARE OR HAVE BEEN ENROLLED IN A CHEMICAL DEPENDENCY/SUBSTANCEABUSE PROGRAM, SOME INFORMATION MAY BE OMITTED. This clinical summary was aggregated from multiple sources. Caution should be exercised in using it in the provision of clinical care. This summary normalizes information from multiple sources, and as a consequence, information in this document may materially change the coding, format and clinical context of patient data. In addition, data may be omitted in some cases. CLINICAL DECISIONS SHOULD BE BASED ON THE PRIMARY CLINICAL RECORDS. [facility] [facility]. provides no warranty or guarantee of the accuracy or completeness of information in this document.
[2024-10-14 19:05] VITALS: BP 105/65; PULSE 81; RESP 18; O2SAT 98
[2024-10-14 20:05] LABS: Mucous, Urine 0 SEEN /hpf (<or=2+); Red Blood Cells-Urine 0 SEEN /hpf (0-5)
[2024-10-14 20:08] LABS: Color, Urine Straw (Yellow); Glucose, Dipstick Normal (Normal); Ketone-Dipstick Negative (Negative); Leukocyte Esterase-Dipstick Negative /ul (Negative); Nitrite-Dipstick Negative (Negative); Occult Blood-Urine Negative /ul (Negative); Protein-Dipstick 15 mg/dl (Negative); Urine Bilirubin Dipstick Negative (Negative); Urine Clarity Clear (Clear); Urine Urobilinogen Normal (Normal)
[2024-10-14 20:35] LABS: Bacteria 2+ /hpf (None Seen); Internal QC Validated? YES +Cl - CLEAR BKGD; Pregnancy, Urine Negative Negative; Squamous Epithelial Cells - UA 50-100 SEEN /hpf (5-10); White Blood Cells 0-5 SEEN /hpf (0-5)
[2024-10-14 20:47] VITALS: BP 140/79; PULSE 65; RESP 18; TEMP 36.4; O2SAT 100
== END 2024-10-14 20:50 | disposition home or self-care (01) ==
PROVIDERS: Physician Assistant; Emergency Provider Emergency Medicine; Visit Provider Emergency Medicine
DX: R10.31 Right lower quadrant pain (principal); F17.210 Nicotine dependence, cigarettes, uncomplicated; Z90.49 Acquired absence of other specified parts of digestive tract; Z90.710 Acquired absence of both cervix and uterus
CPT/HCPCS: 74177; 80048; 81001; 81025; 85025; 87086; 87088; 99282; A4216

== ENCOUNTER → 2025-03-12 | Outpatient (CLI) | payer BC, MEDICARE, SELFPAY ==
--- NOTE | 2025-03-12 09:27 | MRI_ITS ---
PROCEDURE: SPINE LUMBAR W/WO CONTRAST 03/12/2025 REASON FOR EXAM: PAIN, HX OF FUSION TECHNIQUE: Procedure Code: MRISPLWW Modality: MR Procedure: SPINE LUMBAR W/WO CONTRAST Multiplanar and multisequence images were obtained without and with intravenous gadolinium-based contrast administration. CONTRAST: Clariscan VOLUME: 11 mL COMPARISON: MRI lumbar spine 09/20/2023 FINDINGS: For the purposes of this report, the most caudal rectangular vertebral body will be designated L5. The next most caudal trapezoidal shaped vertebral body will be designated S1. The intervening disc at the lumbosacral angle is designated L5-S1. Susceptibility artifact from spinal hardware limits evaluation of adjacent structures. L4-L5 posterior fusion. Evidence of posterior decompression. There are paired converging screws at each level. No abnormal enhancement or fluid collection in the surgical bed. The normal lumbar lordosis is maintained. The lumbar vertebral bodies are normal in height. Stable grade 2 L4-L5 anterolisthesis. There is no focal enhancing and marrow replacing lesion in the lumbar spine. There is no evidence of signal abnormality in the imaged distal spinal cord or abnormal enhancement within the lumbar spinal canal. The conus medullaris terminates at the level of L1. T12-L1: No significant spinal canal stenosis neural foraminal narrowing. L1-L2: No significant spinal canal stenosis neural foraminal narrowing. L2-L3: No significant spinal canal stenosis or neural foraminal narrowing. L3-L4: No significant spinal canal stenosis neural foraminal narrowing. L4-L5: Uncovering of the disc and bilateral facet joint arthrosis. Interval re- expansion of the spinal canal at this level from posterior decompression. No significant spinal canal stenosis. [id number] bilateral neural foraminal narrowing. L5-S1: No significant spinal canal stenosis or neural foraminal narrowing. Mild fatty atrophy of the posterior paraspinal muscles. Incompletely characterized bilateral renal cysts. MRI/Spine Lumbar W/WO Contrast IMPRESSION: Susceptibility artifact from spinal hardware limits evaluation of adjacent stru ctures. L4-L5 posterior fusion. Stable grade 2 L4-L5 anterolisthesis. No high-grade spinal canal or neural foraminal stenosis in the lumbar spine. Reading Location: [id number]
== END | disposition home or self-care (01) ==
PROVIDERS: Referring Provider Student in an Organized Health Care Education/Training Program; Visit Provider Student in an Organized Health Care Education/Training Program
DX: M54.50 Low back pain, unspecified (principal); Z98.1 Arthrodesis status
CPT/HCPCS: 72158; A9575

== ENCOUNTER 2025-03-26 10:00 | Outpatient (RCR) | payer BC, MEDICARE, SELFPAY ==
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
--- NOTE | 2025-05-21 07:57 | HP.PTDCSUM ---
Discharge Summary D/C summary: It has been my pleasure to treat GENESIS PICKETT referred by GABE Melton, with the diagnosis of SPINAL STENOSIS ,LUMBAR ,ARTHODESIS STATUS M, LOW BACK PAIN for a total of 6 visit(s). Discharge Date: Please see the following information for a summary of their discharge status. Subjective Subjective: Pt noting that she is about the same with no pain but just notes feeling pressure in the LB. Pt noting feeling good following previous session. Pain Bilateral Back: Pain Intensity (Out of 10): 6 Objective Objective/Function: Added additional types of ambulation in today with pt having no pain with this but demos limited ROM with all. Pt then completed kitchen sink exs today for LE strengthening with greater WBing vs 6ft. Pt has limited ROM with exercises but is able to complete without issue. Pt needing min VCs at start of exercise for proper form and technique with good carryover noted. Lastly, pt completed STS from pool chair for LE strengthening with pt demoing good form following visual demonstration. No questions following session and no c/o pain following session. 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 Thank you for the referral of this patient. Sincerely, Bruce Cedillo, PT, Cert MDT, OCS Balance/Gait/Functional tests Balance/Special Test Scores Oswestry Low Back Score: 24
== END 2025-03-26 19:00 | disposition home or self-care (01) ==
LOC: PT 10:00
PROVIDERS: Referring Provider Student in an Organized Health Care Education/Training Program; Visit Provider Student in an Organized Health Care Education/Training Program
DX: M48.061 Spinal stenosis, lumbar region without neurogenic claudication (principal); M54.50 Low back pain, unspecified; Z98.1 Arthrodesis status
CPT/HCPCS: 97113; 97162